=== PATIENT | male | born 1975 | race Two or more races ===

== ENCOUNTER 2023-05-23 20:53 | Outpatient (CLI) | payer MEDICAID, SELFPAY ==
--- OUTSIDE RECORDS SUMMARY | 2023-05-23 20:58 | XMS_ITS | Encounter Summary ---
Author Name Unknown Organization [facility] Address [address] [place] [address]. [place] [address] Care Team Providers Care Automatic Stacker Name Role Phone Saba Pan MD Unavailable [phone] Samuel Rahman MD Unavailable [phone] Saba Pan MD Unavailable [phone] Bolivar Tierney DPM Unavailable [phone] Jennie Coleman APRN [employer] SECRETARY Unavailable [phone] Lety Baldwin Primary Care Provider [phone] Encounter Details Date Type Department Care Team (Late st Contact Info) Description 10/13/2022 Telephone [facility] [address] [place] [address] Rojas Walker PA-C [address] [place] [address] Social History Tobacco Use Types Packs/Day Years Used Date Smoking Tobacco: Former Smokeless Tobacco: Never Comments:Smoked about 1/2 pp d for maybe 5 years quitting over 10 years ago (as of 2022) Alcohol Use Standard Drinks/Week Comments Not Currently 0 (1 standard drink = 0.6 oz pur e alcohol) PHQ-2 Answer Date Recorded PHQ-2 Score 6 06/07/2022 Sex and Gender Information Value Date Recorded Sex Assigned at Not on file Gender Identity Not on file Sexual Orientation Not on file COVID-19 Exposure Response Date Recorded In the last 10 days, have yo u been in contact with someone who was confirmed or suspected to have Coronavirus/COVID-19? No / Unsure 10/10/2022 8:59 AM CDT documented as of this encounter Miscellaneous Notes * Telephone Encounter - Flor Simpson - 10/14/2022 8:47 AM CDT Left message to call and schedule. * Telephone Encounter - David Harry, RN - 10/13/2022 3:19 PM CDT Order extended to 03/17/23 * Telephone Encounter - Oralia Paez - 10/13/2022 10:53 AM CDT Order/Referral Request Who is requesting: PT is wanting to schedule sleep study, no appts available until after 12.13.22. Sleep order expires on 11.10.22 please extend this Orders being requested: see above Reason service is needed/diagnosis: wants to schedule sleep study When are orders needed by: would like to schedule soon Has this been discussed with Provider: No Does patient have a preference on a Group/Provider/Facility? [facility] Does patient have an appointment scheduled?: No Where to send orders: Place orders within [facility] Could we send this information to you in [facility] or would you prefer to receive a phone call?: Patient would prefer a phone call Okay to leave a detailed message?: Yes at Other phone number: [phone] documented in this encounter Plan of Treatment Upcoming Encounters Date Type Department Care Team (Late st Contact Info) Description 07/27/2023 10:00 AM CDT Virtual Visit [facility] [address] [address] Nasir Cunningham MD [address] [place] [address] documented as of this encounter Visit Diagnoses Not on filedocumented in this encounter Additional Health Concerns Assessment Noted Time PHQ-9 Depression Total Score: 19 023 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 encounter Care Teams Automatic Stacker Relationship Specialty Start Date End Date Lety Baldwin [place] [address] PCP - General Family Practice 10/10/22 Saba Pan MD Physical Medicine and Rehabilitation 02/21/22 Samuel Rahman MD [address] [facility] [address] [place] [address] Assigned Heart and Vascular Provider 04/02/22 Saba Pan MD [address] [facility] [address] [place] [address] Assigned Neuroscience Provider 06/11/22 01/06/23 Bolivar Tierney DPM [address] [facility] [address] [place] [address] Assigned Surgical Provider 07/09/22 Jennie Coleman APRN [employer] SECRETARY [address] [place] [address] Assigned Pain Medication Provider 08/13/22 02/10/23 documented as of this encounter
--- OUTSIDE RECORDS SUMMARY | 2023-05-23 20:58 | XMS_ITS | Encounter Summary ---
Author Name Unknown Organization [facility] Address [address] [place] [address] Care Team Providers Care Pillow Filler Name Role Phone Saba Pan MD Unavailable [phone] Samuel Rahman MD Unavailable [phone] Bolivar Tierney DPUma Unavailable [phone] Lety Baldwin Primary Care Provider [phone] Rojas Walker PA-C Unavailable [phone] Reason for Visit * Reason Onset Date Comments Transfer Note 03/21/2023 Encounter Details Date Type Department Care Team (Late st Contact Info) Description 03/21/2023 Telephone [facility] [address] [place] [address] [place] [address] [place] [address] Transfer Note Social History Tobacco Use Types Packs/Day Years Used Date Smoking Tobacco: Former Smokeless Tobacco: Current Chew Comments:Smoked about 1/2 pp d for maybe 5 years quitting over 10 years ago (as of 2022) Alcohol Use Standard Drinks/Week Comments Not Currently 0 (1 standard drink = 0.6 oz pur e alcohol) PHQ-2 Answer Date Recorded PHQ-2 Score 6 06/07/2022 Adolescent Education Answer Date Record ed Getting School Help Needed Not on file 01/06 Sex and Gender Information Value Date Recorded Sex Assigned at Not on file Gender Identity Not on file Sexual Orientation Not on file documented as of this encounter Plan of Treatment Upcoming Encounters Date Type Department Care Team (Late st Contact Info) Description 07/27/2023 10:00 AM CDT Virtual Visit [facility] and Bariatrics Care [address] [place] [id number] Nasir Cunningham MD [address] [facility] [address] [place] [address] documented as of this encounter Visit Diagnoses Not on filedocumented in this encounter Additional Health Concerns Assessment Noted Time PHQ-9 Depression Total Score: 19 023 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 Care Teams Pillow Filler Relationship Specialty Start Date End Date Lety Baldwin PA [address] [place] [address] PCP - General Family Practice 10/10/22 Saba Pan MD Physical Medicine and Rehabilitation 02/21/22 Samuel Rahman MD [address] [place] [address] [address] [place] [address] Assigned Heart and Vascular Provider 04/02/22 Bolivar Tierney DPM [address] [place] [address] [address] [place] [address] Assigned Surgical Provider 07/09/22 Rojas Walker PA-C [address] [facility] [address] [place] [address] Assigned Neuroscience Provider 01/07/23 documented as of this encounter
--- OUTSIDE RECORDS SUMMARY | 2023-05-23 20:58 | XMS_ITS | Encounter Summary ---
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 [employer] Unavailable [phone] Lety Baldwin Primary Care Provider [phone] Reason for Visit * Reason Comments Weight Problem RWM Encounter Details Date Type Department Care Team (Late st Contact Info) Description 12/21/2022 9:30 AM CDT Virtual Visit [facility] [address] [id number] Nasir Cunningham MD [address] [place] [id number] Type 2 diabetes mellitus with diabetic neuropathy, with long-term current use of insulin (H); Type 2 diabetes mellitus with peripheral neuropathy (H) Social History Tobacco Use Types Packs/Day Years Used Date Smoking Tobacco: Former Smokeless Tobacco: Current Chew Tobacco Cessation:Ready to Q uit: Not Asked; Counseling Given: Not Answered Comments:Smoked about 1/2 ppd for maybe 5 years quitting over 10 [...] on file documented as of this encounter Last Filed Vital Signs Vital Sign Reading Time Taken Comments Blood Pressure - - Pulse - - Temperature - - Respiratory Rate - - Oxygen Saturation - - Inhaled Oxygen Concentration - - Weight 137.9 kg (304 lb) 12/21/2022 9:15 AM CDT Height 177.8 cm (5' 10) 12/21/2022 9:15 AM CDT Body Mass Index 43.62 12/21/2022 9:15 AM CDT documented in this encounter Patient Instructions * Patient Instructions* Nasir Cunningham MD - 12/21/2022 9:30 AM CDT Plan: 1. Diet: continue aiming for 2000-2150kcal/day with 100grams of lean protein daily to keep good weight reduction going as you increase your fitness tool at the [facility] this summer/Fall. 2. Exercise: recumbent elliptical and strength work 2-4 days weekly at the [facility] is great. 3. Medication: Victoza 1.8mg/day refilled with needles/swabs. You can follow up as planned with your PCP this next month for your diabetes check. Looking at your insurance coverages for diabetes medication, if you miss doses frequently (not a problem today). There is a once weekly medication calledbydureon that is also covered similarly to Victoza. Unfortunately, it looks like the newer agents like Mounjaro (tirzepatide) or Ozempic are not affordably covered and so we'll continue with using these diabetic focused drugs to tap into some of the fullness feeling they help with as well. 4. If not tracking food intake, it would be helpful to use an cary like My Net Diary or [employer] or [employer] to make sure you're on track for intake goals and then see how your appetite control/blood sugars respond to that regimen. 5. Goals: down nearly 80 lbs from highest weights in 2021. 21% body weight reduction which is fantastic. In the next 20-25 lbs of weight loss, you'll move down a risk category as it relates to your weight related health, when you BMI drops under 40. LEAN PROTEIN SOURCES Getting 20-30 grams of protein, 3 meals daily, is appropriate for most people, some need more but more than about 40 grams per meal is not useful. General rule is drinking one ounce of water per gram of protein eaten over the course of the day: 70 grams of protein each day, drink 70 oz of water. Protein Source Portion Calories Grams of Protein Nonfat, plain Rwandan yogurt (10 grams sugar or less) 3/4 cup (6 oz) 80-100 12-17 Light Yogurt (10 grams sugar or less) 3/4 cup (6 oz) 80-100 6-8 Protein Shake 1 shake 110-180 15-30 Skim/1% Milk or lactose-free milk 1 cup ( 8 oz) 90-100 8 Plain or light, flavored soymilk 1 cup 90-100 7-8 Plain or light, hemp milk 1 cup 110 6 Fat Free or 1% Cottage Cheese 1/2 cup 90 15 Part skim ricotta cheese 1/2 cup 100 14 Part skim or reduced fat cheese slices 1 ounce 65-80 8 Mozzarella String Cheese 1 80 8 Canned tuna, chicken, crab or salmon (canned in water) 1/2 cup 100 15-20 White fish (broiled, grilled, baked) 3 ounces 100 21 [place]/Tuna (broiled, grilled, baked) 3 ounces 150-180 21 Shrimp, Scallops, Lobster, Crab 3 ounces 100 21 Pork loin, Pork Tenderloin 3 ounces 150 21 Boneless, skinless chicken /turkey breast (broiled, grilled, baked) 3 ounces 120 21 [place], [place]arro, [place], and Venison 3 ounces 120 21 Lean cuts of red meat and pork (sirloin, round, tenderloin, flank, ground 93%-96%) 3 ounces 170 21 Lean or Extra Lean Ground Neffs 1/2 cup 150 20 90-95% Lean Neffs Burger 1 yanna 140-180 21 Low-fat casserole with lean meat 3/4 cup 200 17 Luncheon Meats (turkey, lean ham, roast beef, chicken) 3 ounces 100 21 Egg (boiled, poached, scrambled) 1 Egg 60 7 Egg Substitute 1/2 cup 70 10 Nuts (limit to 1 serving per day) 3 Tbsp. 150 7 Nut [place] (peanut, almond) Limit to 1 serving or less daily 1 Tbsp. 90 4 Soy Burger (varies) 1 90-130 15 Garbanzo, Black, Benjamin Beans 1/2 cup 110 7 Refried Beans 1/2 cup 100 7 Kidney and Rees beans 1/2 cup 110 7 Tempeh 3 oz 175 18 Vegan crumbles 1/2 cup 100 14 Tofu 1/2 cup 110 14 Lamoni (beans and extra lean beef or turkey) 1 cup 200 23 Lentil Stew/Soup 1 cup 150 12 Black Beth Soup 1 cup 175 12 On-the-Go Breakfast Ideas As of 2015, the latest research shows what a huge impact eating breakfast has on losing weight and feeling your best. People lose more weight when they make breakfast their biggest meal of the day compared to Dinner, but even if you cannot go to that degree, getting a breakfast that has at least 20grams of protein and even a moderate amount of fat is ideal for maintaining good energy through theday and limits overeating in the evening hours. The following are some quick and easy suggestions for at least getting something of substance into your body in the morning. Enjoy! Eating breakfast within 90 minutes of waking up is an important part of taking care of your body melina restricted calorie diet plan. After sleeping for hours, your body is in need of fuel. An ideal breakfast is a combination of protein, whole-grain carbohydrates, or fruit. Here???s why: -Protein digests very slowly in the body, helping you feel more satisfied. -Whole grains provide dietary fiber, which also digests slowly and helps keep your gut clean. -Fruit is a great source of vitamins, minerals, and fiber. Each one of these breakfast combinations has between 200-300 calories and 15-20 grams of protein. Feel free to mix and match! Bone Broth (chicken bone broth or beef bone broth) is a great way to boost protein content. 8oz of bone broth will typically have 9-12grams of protein for 40kcal of energy. Protein: Choose -1/2 cup low-fat cottage cheese -2 hard boiled eggs , or one cooked in olive oil (low/slow heat). -1 low fat string cheese stick -1 Tablespoon natural peanut butter -Todaytickets vegetarian sausage yanna (found in freezer section) -1 slice lowfat cheese -6 oz 2% or lowfat Rwandan yogurt, such as Fage or Oikos. PLUS Whole Grains: Choose??? -1 whole wheat Vietnamese muffin -1 whole wheat lópez, half -1/2 Fiber One frozen muffin, thawed -1/2 Fiber One toaster pastry -1 whole wheat bagel thin -1/2 cup Kashi cereal -1 Kashi waffle (or other whole grain high-fiber waffle) Aim for whole grain/sprouted breads with at least 3g of fiber/slice if having bread. Mingleplay is one such brand. OR Fruit: Choose -1/3 cup blueberries -1/2 banana (or a plantain- similar to a banana, yet smaller) -1/2 cup cantaloupe cubes -1 small apple -1 small orange -1/2 cup strawberries -handful raspberries/blackberries (each phillips is about 1 calorie). *Adapted from Diabetes Living, fall Ten Breakfasts Under 250 calories Ideally, getting between 350-600 calories (depending on starting height and weight)for breakfast isideal for avoiding hunger later in the day, adjust/add to the following accordingly: One- 250 calories, 8.5 g protein 1 slice whole-grain toast 1 Tbsp peanut butter ?? banana Two- 250 calories, 8 g protein ?? cup nonfat/lowfat yogurt 1/3rd cup diced no-sugar peaches 1/3rd cup cereal (like Special K, Cheerios, or bran flakes) Three- 250 calories, 25 g protein 1 egg scrambled with 1 oz skim milk ?? cup shredded cheddar ?? whole grain Vietnamese muffin 1 oz [place] hendrickson 1 tsp margarine spread Four- 225 calories, 25 g protein 1/2 cup Kashi Go-Lean cereal ?? cup skim milk mixed with 1 scoop Bariatric Advantage protein powder ?? cup no-sugar diced pears Five- 250 calories, 20 g protein ?? cup oatmeal prepared with skim milk, 1 scoop protein powder, and sugar-free maple syrup Six- 200 calories, 5 g protein 1 whole grain waffle, toasted 1 tablespoon creamy peanut or almond butter Seven- 250 calories, 19 g protein Breakfast sandwich: 1 slice whole grain toast, cut in half. Add 1 scrambled egg and one slice cheddar cheese. Eight- 250 calories, 15 g protein 2 eggs scrambled with 1/3 cup frozen spinach (heat before adding to eggs) and 2 tablespoons low fatcream cheese. Nine- 150 calories, 15 g protein 2/3rd cup cottage cheese ?? cup cantaloupe Ten- 200 calories, 20 g protein Fruit smoothie made with 4 oz. nonfat Rwandan yogurt, ?? cup berries, 1 scoop protein powder, and 4 oz skim milk. Ten Lunches Under 250 Calories Aim for lunch to be around 300-400 calories a day when trying to lose weight and get that protein in! One- 200 calories, 11 g protein 1/3 cup tuna salad made with light espinosa on 1 slice whole grain bread 1 small peeled apple Two- 250 calories, 16 g protein 1/3 cup lowfat cottage cheese ?? cup cooked green beans ?? small fruit cocktail (in natural juice) Three- 200 calories, 11 g protein ?? grilled cheese sandwich on whole grain bread with lowfat cheese 2/3rd cup of tomato soup Four- 250 calories, 22 g protein Deli wrap: 1 oz sliced turkey, 1 oz sliced ham, 1 oz sliced chicken rolled up with 1 slice low-fat cheese 1 small orange Five- 250 calories, 28 g protein 2/3rd cup chili with 1 oz shredded cheese 4 saltine crackers Six- 250 calories, 22 g protein 1 cup fresh spinach with 2 oz chicken, 1/3rd cup mandarin oranges, and 2 tablespoons sliced almondswith 1 tablespoon vinaigrette dressing Seven- 200 calories, 11 g protein 1 Tbsp sugar-free preserves and 1 Tbsp peanut butter on 1 slice whole grain toast ?? cup nonfat/lowfat Rwandan yogurt Eight- 250 calories, 18 g protein 1 small soft-shell chicken taco with 1 oz shredded cheese, lettuce, tomato, salsa, and 1 Tbsp lightsour cream ?? cup black beans Nine- 225 calories, 13 g protein 2 ounces baked chicken 1/4 cup mashed potatoes ?? cup green beans Ten- 200 calories, 21 g protein Deli lópez: 2 oz roast beef or other deli meat with 1 tsp Duane mayonnaise and sliced tomato, onion,and lettuce 1/3rd cup cottage cheese Ten Dinners Under 300 calories If you're eating a large breakfast and medium lunch, keep dinner small. 300-400 calories is ideal for most people depending on their caloric needs. One- 300 calories, 12 g protein 1-inch thick slice of turkey meatloaf ?? cup baked butternut squash Two- 200 calories, 9 g protein Bread-less BLT: 3 slices turkey hendrickson, sliced tomato, wrapped in a large lettuce leaf ?? cup peeled fruit Three- 275 calories, 36 g protein 3 oz roasted chicken ?? cup cooked broccoli ?? cup shredded cheddar cheese ?? cup unsweetened applesauce Four- 200 calories, 25 g protein 3 oz baked tilapia 1/3rd cup cooked carrots ?? cup yogurt Five- 250 calories, 20 g protein Grilled ham ???n??? Syrian: spread 2 tsp ghee or butter on 1 slice of whole grain bread. Cut bread in half, layer 2 oz deli ham with 1 piece of Syrian cheese and grill until cheese is melted. ?? cup cooked vegetables Six- 250 calories, 18 g protein Vegetarian cheeseburger: 1 [place] cheeseburger topped with lettuce, onion, tomato, and ketchup/mustard ?? cup sweet potato fries Seven- 250 calories, 18 g protein Pork pot roast: 2 oz roasted pork loin, 1/3rd cup roasted carrots, ?? medium potato, cooked with ??cup gravy Eight- 330 calories, 25 g protein 2 oz meatballs (about 2 small meatballs) ?? cup spaghetti sauce 1/2 piece toast topped with 1 tsp ghee or butterand topped with garlic powder, toasted in oven Nine- 250 calories, 16 g protein Zambian pizza: one 8?? corn tortilla topped with 2 oz chicken, ?? cup salsa, 2 tablespoons black beans, 2 tablespoons shredded cheese. Bake until cheese is melted. Ten- 250 calories, 22 g protein Shrimp stir-weiner: 3 oz cooked shrimp, 1/6th onion, ?? pepper, ?? cup chopped carrots saut??ed in 1 tablespoon olive oil, topped with 2 tablespoons stir weiner sauce and a pinch of sesame seeds 150 Calories or Less Snack Ideas 1 hardboiled egg with ?? cup berries 1 small apple with 1 hardboiled egg 10 almonds with ?? cup berries 2 clementines with 1 light string cheese 1 light string cheese with ?? sliced apple 1 light string cheese wrapped in 2 slices of turkey 4 100% whole wheat crackers (e.g. Triscuit) with 1 light string cheese ?? c. cottage cheese with ?? cup fruit and 1 Tbsp sunflower seeds ?? cup cottage cheese with ?? of an avocado ?? can tuna fish with 1 cup sliced cucumbers ?? cup roasted garbanzo beans with paprika and cayenne pepper ?? baked sweet potato with ?? cup chili beans or ?? cup cottage cheese 2 oz. nitrate free turkey slices with 1 cup carrots 1 container (6 oz) of low sugar (less than 10 grams of sugar) congolese yogurt 3 Tablespoons of hummus with 1 cup sliced santos peppers 2 Tablespoons of hummus with 15 baby carrots 4 Tablespoons ranch dip made with plain Rwandan Yogurt and 3 mini cucumbers 1/4 cup nuts (any kind) 1 Tablespoon peanut butter with 1 stalk celery 1 dill pickle wrapped in 1-2 slices of deli ham with 1 tsp of mayonnaise/mustard. documented in this encounter Progress Notes * Nasir Cunningham MD - 12/21/2022 9:30 AM CDT Images from the original note were not included. The patient has been notified of following: This telephone visit will be conducted via a call between you and your physician/provider. We havefound that certain health care needs can be provided without the need for a physical exam. This service lets us provide the care you need with a short phone conversation. If a prescription is necessary we can send it directly to your pharmacy. If lab work is needed we can place an order for that and you can then stop by our lab to have the test done at a later time. Telephone visits are billed at different rates depending on your insurance coverage. During this emergency period, for some insurers they may be billed the same as an in-person visit. Please reach out to your insurance provider with any questions. If during the course of the call the physician/provider feels a telephone visit is not appropriate,you will not be charged for this service. Patient has given verbal consent to a Telephone visit? Yes What phone number would you like to be contacted at? [phone] Patient would like to receive their AVS by [employer] Are there any specific questions or needs that you would like addressed at your visit today? No Telephone Start Time: 9:28 AM Telephone End Time (time telephone stopped): 9:46 AM Originating Patient Location (pt. Location): Home Distant Location (provider location): On-site Distant Location (provider location): [facility] [place] [facility] Follow-Up Visit: Gale Munson is a 47 year old male with Body mass index is 43.62 kg/m??. presenting here today for follow-up on non-surgical efforts for weight loss. Original Intake visit occurred on 06/17/20 witha weight of 331 lbs and BMI of 46.2. Along with diet and behavior changes, he has been using Victoza (Liraglutide) to assist his weight loss goals while helping with his diabetes. See his intake visit notes for details on identified contributors to weight gain in the past. Chart review shows Box Cutter calculated RMR of 2425kcal/day and protein intake goal of 80-100g/day. Weight: Wt Readings from Last 5 Encounters: 12/21/22 137.9 kg (304 lb) 10/10/22 135.8 kg (299 lb 4.8 oz) 08/08/22 145.6 kg (321 lb) 08/05/22 144.7 kg (319 lb) 07/04/22 148.3 kg (327 lb) pounds Lab Results Component Value Date A1C 7.3 06/17/2022 A1C 7.8 12/21/2021 A1C 6.9 11/18/2008 A1C 9.0 10/21/2008 A1c was 5.7% on 09/16/22 labs in Care Everywhere. 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) Diabetic foot infection (H) Diabetic neuropathy (H) Erectile dysfunction of organic origin Generalized anxiety disorder Renal cyst Hypertensive renal disease Major depressive disorder, recurrent episode, moderate (H) Osteomyelitis of right foot (H) Pain disorder associated with psychological factors and medical condition Penicillin allergy Type II or unspecified type diabetes mellitus without mention of complication, not stated as uncontrolled Type II or unspecified type diabetes mellitus without mention of complication, uncontrolled Weakness of both legs Morbid obesity (H) Current Outpatient Medications: acetaminophen (TYLENOL) 325 MG tablet, Take 650 mg by mouth 3 times daily as needed for mild pain, Disp: , Rfl: alcohol swab prep pads, Use to swab area of injection/pavan as directed., Disp: 100 each, Rfl: 2 amLODIPine (NORVASC) 10 MG tablet, , Disp: , Rfl: aspirin (ASA) 81 MG chewable tablet, Take 81 mg by mouth daily, Disp: , Rfl: blood glucose (NO BRAND SPECIFIED) test strip, Use to test blood sugar 4 times daily or as directed. To accompany: Blood Glucose Monitor Brands: per insurance., Disp: 100 strip, Rfl: 6 blood glucose calibration (NO BRAND SPECIFIED) solution, To accompany: Blood Glucose Monitor Brands: per insurance., Disp: 2 each, Rfl: 0 blood glucose monitoring (NO BRAND SPECIFIED) meter device kit, Use to test blood sugar 4 times daily or as directed. Preferred blood glucose meter OR supplies to accompany: Blood Glucose Monitor Brands: per insurance., Disp: 1 kit, Rfl: 0 chlorthalidone (HYGROTON) 25 MG tablet, Take 1 tablet (25 mg) by mouth daily, Disp: , Rfl: cyanocobalamin (VITAMIN B-12) 1000 MCG tablet, Take 1,000 mcg by mouth twice a week, Disp: , Rfl: diclofenac (VOLTAREN) 1 % topical gel, Apply 4 g topically 4 times daily as needed for moderate pain, Disp: , Rfl: doxazosin (CARDURA) 1 MG tablet, Take 1 mg by mouth At Bedtime Hold for blood pressure less than 100, Disp: , Rfl: hydrALAZINE (APRESOLINE) 100 MG tablet, Take 1 tablet (100 mg) by mouth 3 times daily, Disp: , Rfl: HYDROcodone-acetaminophen (NORCO) 5-325 MG tablet, TAKE 1 TABLET BY MOUTH THREE TIMES DAILY CONTROLLED SUBSTANCE-DOUBLE LOCK STORAGE, Disp: 30 tablet, Rfl: 0 insulin glargine (LANTUS PEN) 100 UNIT/ML pen, Inject 15 Units Subcutaneous At Bedtime Hold for blood glucose less than 120, Disp: , Rfl: insulin pen needle (31G X 5 MM) 31G X 5 MM miscellaneous, Use 4 pen needles daily or as directed., Disp: 100 each, Rfl: 0 insulin pen needle (BD ANNIKA U/F) 32G X 4 MM miscellaneous, Use new pen needle for each autoinjection., Disp: 100 each, Rfl: 4 liraglutide (VICTOZA) 18 MG/3ML solution, Inject 1.8 mg Subcutaneous daily, Disp: 27 mL, Rfl: 3 metFORMIN (GLUCOPHAGE) 500 MG tablet, Take 1 tablet (500 mg) by mouth 2 times daily (with meals), Disp: , Rfl: nicotine (NICORETTE) 2 [address] gum, Place 2 mg inside cheek every hour as needed for smoking cessation, Disp: , Rfl: polyethylene glycol (MIRALAX) 17 GM/Dose powder, Take 17 g by mouth daily (Patient taking differently: Take 17 g by mouth 2 times daily), Disp: 510 g, Rfl: rosuvastatin (CRESTOR) 10 MG tablet, Take 1 tablet (10 mg) by mouth daily, Disp: , Rfl: SENNA-docusate sodium (SENNA S) 8.6-50 MG tablet, Take 1 tablet by mouth At Bedtime And 1 tab BID PRN (Patient taking differently: Take 2 tablets by mouth 2 times daily), Disp: , Rfl: thin (NO BRAND SPECIFIED) lancets, Use with lanceting device. To accompany: Blood Glucose Monitor Brands: per insurance., Disp: 100 each, Rfl: 0 torsemide (DEMADEX) 20 MG tablet, Take 30 mg by mouth daily, Disp: , Rfl: Vitamin D3 (CHOLECALCIFEROL) 25 mcg (1000 units) tablet, Take 25 mcg by mouth daily, Disp: , Rfl: Interim: Since our last visit, he has had some modest weight regain but maintaining close to 75-80lb reduction from heaviest weight at the end of 2021. Victoza has been tolerated well at the 1.8mg/day dose. Working at [facility] regularly now. Weighed himself at 304 lbs. Has been more mindful about simple starches and reminded that all food Blood sugar 120mg/dL today. Planning blood work w/ PCP in the next few weeks. No lows below 88mg/dL. Getting complements on his fitness. Plan: 1. Diet: continue aiming for 2000-2150kcal/day with 100grams of lean protein daily to keep good weight reduction going as you increase your fitness tool at the [facility] this summer/Fall. 2. Exercise: recumbent elliptical and strength work 2-4 days weekly at the [facility] is great. 3. Medication: Victoza 1.8mg/day refilled with needles/swabs. You can follow up as planned with your PCP this next month for your diabetes check. Looking at your insurance coverages for diabetes medication, if you miss doses frequently (not a problem today). There is a once weekly medication calledbydureon that is also covered similarly to Victoza. Unfortunately, it looks like the newer agents like Mounjaro (tirzepatide) or Ozempic are not affordably covered and so we'll continue with using these diabetic focused drugs to tap into some of the fullness feeling they help with as well. 4. If not tracking food intake, it would be helpful to use an cary like My Net Diary or [employer] or [employer]ness[employer] to make sure you're on track for intake goals and then see how your appetite control/blood sugars respond to that regimen. 5. Goals: down nearly 80 lbs from highest weights in 2021. 21% body weight reduction which is fantastic. In the next 20-25 lbs of weight loss, you'll move down a risk category as it relates to your weight related health, when you BMI drops under 40. We discussed [facility] including: -eating 3 meals daily -reviewed metabolic needs for weight loss based on Resting Metabolic Rate -protein goals supportive of healthy weight loss -avoiding/limiting calorie containing beverages -We discussed the importance of restorative sleep and stress management in maintaining a healthy weight. -We discussed the National Weight Control Registry healthy weight maintenance strategies and ways to optimize metabolism. -We discussed the importance of physical activity including cardiovascular and strength training inmaintaining a healthier weight and explored viable options. Most recent labs: Lab Results Component Value Date WBC 13.1 (H) 06/17/2022 HGB 13.6 06/17/2022 HCT 40.4 06/17/2022 MCV 86 06/17/2022 PLT 269 06/17/2022 Lab Results Component Value Date CHOL 145 01/04/2022 Lab Results Component Value Date HDL 33 (L) 01/04/2022 No components found for: LDLCALC Lab Results Component Value Date TRIG 114 01/04/2022 No results found for: CHOLHDL Lab Results Component Value Date ALT 28 06/17/2022 AST 33 06/17/2022 ALKPHOS 115 06/17/2022 No results found for: HGBA1C Lab Results Component Value Date B12 1,601 (H) 06/17/2022 No components found for: VITDT1 No results found for: NOLVIA No results found for: PTHI Lab Results Component Value Date ZN 76.6 06/17/2022 Lab Results Component Value Date VIB1WB 149 06/17/2022 Lab Results Component Value Date TSH 0.63 06/17/2022 No results found for: TEST DIETARY HISTORY Tracking technique: limited Positive Changes Since Last Visit: going to the [facility] regularly the past couple of weeks. Struggling With: protein from whole foods can be financially hard at times. Getting Adequate Protein: had been supplementing w/ some Ensure Max protein Sleep schedule: n/a. PHYSICAL ACTIVITY PATTERNS: Cardiovascular: recumbent elliptical at the [facility] Strength Training: machines/elliptical REVIEW OF SYSTEMS Feels well. No upset stomach. Happy with progress and enjoying complements at the gym. . PHYSICAL EXAM: Vitals: Ht 1.778 m (5' 10) Wt 137.9 kg (304 lb) BMI 43.62 kg/m?? Weight: Wt Readings from Last 3 Encounters: 12/21/22 137.9 kg (304 lb) 10/10/22 135.8 kg (299 lb 4.8 oz) 08/08/22 145.6 kg (321 lb) GEN: Pleasant on phone call today, normal affect/speech. No cough. Interim study results: none.. 25 minutes spent by me on the date of the encounter doing chart review, history and exam, documentation and further activities per the note Nasir Cunningham MD [facility] 7:53 AM 12/21/2022 documented in this encounter Plan of Treatment Upcoming Encounters Date Type Department Care Team (Late st Contact Info) Description 07/27/2023 10:00 AM CDT Virtual Visit [facility] [place] [address] [facility] [address] [place] [address] Nasir Cunningham MD [address] [facility] [address] [place] [address] documented as of this encounter Visit Diagnoses Diagnosis Type 2 diabetes mellitus with diabetic neuropathy, with long-term current use of insulin (H) Type 2 diabetes mellitus with peripheral neuropathy (H) documented in this encounter Additional Health Concerns Assessment Noted Time PHQ-9 Depression Total Score: 19 023 2:47 PM C [employer] WORK[employer] documented as of this encounter Care Teams Mail Clerk Relationship Specialty Start Date End Date Lety Baldwin PA [address] [place] [id number] PCP - General Family Practice 10/10/22 Saba Pan MD Physical Medicine and Rehabilitation 02/21/22 Samuel Rahman MD [address] [facility] [address] [place] [address] Assigned Heart and Vascular Provider 04/02/22 Saba Pan MD [address] [facility] [address] [place] [address] Assigned Neuroscience Provider 06/11/22 01/06/23 Bolivar Tierney DPM [address] [facility] [address] [place] [address] Assigned Surgical Provider 07/09/22 Jennie Coleman APRN CNP [address] [place] [address] Assigned Pain Medication Provider 08/13/22 02/10/23 documented as of this encounter
--- OUTSIDE RECORDS SUMMARY | 2023-05-23 20:58 | XMS_ITS | Encounter Summary ---
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 Name Role Phone Saba Pan MD Unavailable [phone] Samuel Rahman MD Unavailable [phone] Bolivar Tierney DPUma Unavailable [phone] Lety Baldwin Primary Care Provider [phone] Rojas Walker PA-C Unavailable [phone] Reason for Visit * Reason Comments RECHECK Encounter Details Date Type Department Care Team (Late st Contact Info) Description 03/23/2023 10:30 AM ELECTRIC SIGN WIRER Virtual Visit [facility] [address] [place] [phone] Nasir Cunningham MD [address] [place] [id number] Type 2 diabetes mellitus with diabetic [...] alcohol) PHQ-2 Answer Date Recorded PHQ-2 Score 2 03/23/2023 Adolescent Education Answer Date Record ed Getting [...] - - Weight 137.9 kg (304 lb) 03/23/2023 10:19 AM ELECTRIC SIGN WIRER Height - - Body Mass Index 43.62 12/21/2022 9:15 AM CDT documented in this encounter Patient Instructions * Patient Instructions* Nasir Cunningham MD - 03/23/2023 10:30 AM ELECTRIC SIGN WIRER Plan: 1. Diet: aiming for 1900-2050kcal/day with 70-85 grams of lean protein daily to continue good weight reductions going forward. With the costs of proteins, finding affordable/satiating option can be difficult sometimes but touch base with fusing machine tender if struggling. 2. Exercise: continue pool therapy and workouts at [facility] to keep that health benefit on overall fitness/health. With 3 days weekly the above intake goal should continue to produce good weight reductions. If you stop exercising, aiming for 1750-1950kcal/day would be your intake goal. 3. Medication: Victoza helpful for A1c control we'll continue at 1.8mg/day dose. 4. 5. Goals: would like to lose 50 lbs in 2023 with continued healthy kidneys and diabetes control. LEAN PROTEIN SOURCES Getting 20-30 grams of [...] Portion Calories Grams of Protein Nonfat, plain Lao yogurt (10 grams sugar or less) 3/4 [...] (broiled, grilled, baked) 3 ounces 100 21 [place]/Tuna (broiled, grilled, baked) 3 ounces 150-180 21 Shrimp, Scallops, Lobster, Crab 3 ounces 100 21 Pork loin, Pork Tenderloin 3 ounces 150 21 Boneless, skinless chicken /turkey breast (broiled, grilled, baked) 3 ounces 120 21 [place], [place], [place], and Venison 3 ounces 120 21 Lean cuts of red meat and pork (sirloin, round, tenderloin, flank, ground 93%-96%) 3 ounces 170 21 Lean or Extra Lean Ground Apollo 1/2 cup 150 20 90-95% Lean Apollo Burger 1 yanna 140-180 21 Low-fat casserole with lean meat 3/4 cup 200 17 Luncheon Meats (turkey, lean ham, roast beef, chicken) 3 ounces 100 21 Egg (boiled, poached, scrambled) 1 Egg 60 7 Egg Substitute 1/2 cup 70 10 Nuts (limit to 1 serving per day) 3 Tbsp. 150 7 Nut [place] (peanut, almond) Limit to 1 serving or less daily 1 Tbsp. 90 4 Soy Burger (varies) 1 90-130 15 Garbanzo, Black, Benjamin Beans 1/2 cup 110 7 Refried Beans 1/2 cup 100 7 Kidney and Rees beans 1/2 cup 110 7 Tempeh 3 oz 175 18 Vegan crumbles 1/2 cup 100 14 Tofu 1/2 cup 110 14 Alliance (beans and extra lean beef or turkey) 1 cup 200 23 Lentil Stew/Soup 1 cup 150 12 Black Beth Soup 1 cup 175 12 Example Meal Plan for a 7341-0566 Calorie Diet: In order to fuel your weight loss properly and avoid hunger-induced overeating later in the day, for your height and weight, you will enjoy the most success by following the diet below or similar with adjustments based on your particular tastes and preferences. Exercise may influence speed, amount of weight loss further. I recommend getting into a meal routine and keeping it similar day to day in the beginning so you don???t have to think too hard about what you???re going to make/eat. Keep snacks healthy, ideally containing protein and some vegetables. Non-processed food is preferable to packaged items. Eat at least a few crunchy green vegetables if having a snack, which should be 2-3 hours after your mealtimes(prepare these ahead of time for ease of use). Drink 64 oz -80 oz of water daily for most, some of you will need more and we'll discuss it at your visit if that is the case. When changing our diet, we can often mistake thirst for hunger or just have some distracted eating habits that we need to break free from ('bored/mindless eating', screen time,work, driving,etc). A glass of water and reconsideration of our hunger is often all that is needed. Having the urge is not the problem, but watching it pass by without acting on it is the goal. If you???re having hunger problems, add a protein drink/snack to your morning hours or afternoon snack with at least 20grams of protein and not too much sugar (under 10g). A carton of higher protein/low sugar yogurt can work as well. If the urge to snack is overwhelming and not satiated, try going for a 10 minute walk/exercise, come home and drink a glass of water and if still hungry, have a 90-150 calorie snack (handful of raw/sprouted nuts, veggies and string cheese, protein bar, etc). Savor it. It is better to have a large breakfast, a moderate lunch and a smaller dinner to fuel your day. People lose 10-15% more weight during their weight loss season with this strategy. Optimizing your protein intake at each meal will further keep you more satisfied while eating less food overall. Gettingexercise in early has also been shown to offer the best results (before breakfast ideally but anytime is the right time to exercise if that is not an option for you). To make sure you???re getting adequate vitamins and minerals during weight loss, I recommend one complete multivitamin a day of your choice. Consider a probiotic and taking some vitamin D 2000 IU daily. Let supper be your last meal of the day and ideally try to have at least 12 hours between supper and breakfast the next day to tap into some beneficial overnight fasting dynamics. Midnight snacks need to go away. Water in the evening is fine, unsweetened, non caffeinated herbal tea is helpful as well. Consolidating your meals within a 8-12 hour period of your day will help tap into these additional metabolic benefits and tends to keep your appetite up for breakfast, further helping to stay on track. For most of my patients, I don't recommend an intermittent fasting style diet (many find it hard to fit in their lifestyle) but an overnight fast is very doable for most patients and helps regulate our hunger drives a little better. This makes it very important to nail good intake at all threemeals to feel satisfied/energized and still lose weight. If evening snacking desires are high, consider a glass of fiber supplement for some additional fullness (metamucil or similar). Most of us don't get the 25-30 grams per day of fiber that promotes good gut health/satiety. Benefiber, metamucil, citrucel are reasonable/affordable options for most people. Inulin, chicory, psyllium husk are reasonable options but start slow and low in the dose to avoid gas/bloating until your gut gets acclimated (ramping up to 5-10 grams per day of supplemental fiber after 3-4 weeks if needed). Example Meal Plan: Breakfast: 450-475 Calories 1 egg cooked on low in olive oil: 90-100 calories. 5oz Lao Yogurt (Fage plain classic: ~150 emilee) Handful of Berries of your choice (about a calorie per phillips or 20-40cal per handful) ?? cup(cooked) of old fashioned oatmeal or 1/2 cup(cooked) steel cut oats. (150 emilee) Sprinkle amount of brown sugar and a pat of butter. (40 emilee) Glass of Water Black coffee or unsweetened Tea (0calories). 2-3 hours Later Snack: (195 calories). Glass of water One string Cheese (80 calories) or 4 oz creamed cottage cheese (115 calories) with Crunchy Celery sticks (less than 10 calories per large stalk) 2 stalks. (20 calories) ?? of a Large Banana or ?? of a Large Apple (60 calories): eat second half at lunch or afternoon snack. Lunch:300 -350 calories Chicken Breast (baked/broiled/roasted/grilled) 4-6 oz. (125-180 emilee), BBQ sauce/hot sauce/mustard/seasoning is free. Just use a reasonable amount. Or a can of tuna with 1 tablespoon mayonnaise. Salad: lettuce, any other veggies (cucumbers, green peppers/celery you like and a small drizzle of dressing to just flavor. Go as big on the veggies as you like, as they are practically calorie free.A whole, 8 inch cucumber is 45 calories, a whole green pepper is 23 calories, a stalk of celery is 9 calories. [place] Dressing is 60 calories per tablespoon..so moderate your desired dressing or do a drizzle of olive oil and splash of balsamic vinegar on top, Total calories unlikely to be over 150 even with dressing. Glass of Water. Option for lunch is meal replacement protein drink/smoothie. Need at least 20 grams of protein and eat the rest of your apple/banana from the morning snack. Afternoon Snack: 150-200 calories Cheese Stick or cottage cheese again and a fresh fruit OR Granola Bar (protein Bar acceptable if under 200 calories OR Homemade smoothies: 8oz skim milk, a handful of berries (fresh or frozen and a serving of protein powder such as BiPro or Renetta???sWhey for example. If you don't like dairy, make with 8oz water, one small banana, handful of berries and the protein powder, add any veggies you want as well: roughly 200 calories. Glass of Water Dinner: 325 calories 4oz of fresh, [place] salmon. Broiled (salt/pepper/dill) for about 8-8.5 minutes (200calories) or 4oz filet mignon steak or sirloin steak Salad or vegetable saut??ed lightly in olive oil or Broccoli 1.5 cups chopped and steamed or micro-waved in a little water (75 calories) Glass of Water, Cup of herbal tea (unsweetened, caffeine free) Herbs and seasonings are encouraged to flavor your foods/vegetables. Make your food delicious. Tips for Success: 1. Prepare proteins ahead of time (broil chicken breasts in bulk so you can grab and go), steel cutoats/lentils can be stored in casserole dish/bowl in the fridge for quick scoop in the morning and rewarm in microwave, make use of crock pot recipes (watch salt content). Making meals that cover 3-4future meals is an easy way to stay on track. 2. Drink a 8-12 oz glass of water every 2-3 hours when awake. We often mistake hunger for thirst, especially when losing weight. 3. Remember your Reward and Motivation when things get hard. 4. Weigh yourself every morning and record, you'll stay on track better and learn how our biorhythms, diet and elimination patterns show up on the scale. Don't worry about 1 or 2 day patterns, but when on track you'll notice good trend downward of weight over 3-4 day segments. Plateaus tend to resolve after 4-8 days in most cases if you stay consistent with your plan. These are natural and part of weight loss, even if you're perfect with your plan execution. 5. Call if problems/concerns. [employer] is a great tool to stay in touch and provide weekly outside accountability. Check in with questions or if you want to brag. 6. Find a handful of meals/foods that keep you on track and feeling good and get into a routine that is sustainable for you. It's OK to have a routine that works for you. 7. Consider taking a complete multivitamin just to make sure all micronutrients are adequate duringweight loss. 8. If losing hair/brittle nails it usually means you are not taking enough protein. Minimum goal is60 grams daily of protein for smaller women, 80 grams a day for men. Consider taking Biotin as supplement or a Hair and Nail multivitamin. On-the-Go Breakfast Ideas As of 2015, the [...] cheese stick -1 Tablespoon natural peanut butter -DataRank vegetarian sausage yanna (found in freezer section) -1 slice lowfat cheese -6 oz 2% or lowfat Lao yogurt, such as Fage or Oikos. PLUS Whole Grains: Choose??? -1 whole wheat Mauritian muffin -1 whole wheat lópez, half -1/2 Fiber One frozen muffin, thawed -1/2 Fiber One toaster pastry -1 whole wheat bagel thin -1/2 cup Kashi cereal -1 Kashi waffle (or other whole grain high-fiber waffle) Aim for whole grain/sprouted breads with at least 3g of fiber/slice if having bread. L2 is one such brand. OR Fruit: Choose -1/3 cup blueberries -1/2 banana (or a plantain- similar to a banana, yet smaller) -1/2 cup cantaloupe cubes -1 small apple -1 small orange -1/2 cup strawberries -handful raspberries/blackberries (each phillips is about 1 calorie). *Adapted from Diabetes , fall Ten Breakfasts Under 250 calories Ideally, [...] ?? cup shredded cheddar ?? whole grain Mauritian muffin 1 oz Starke hendrickson 1 tsp margarine spread Four- 225 [...] Fruit smoothie made with 4 oz. nonfat Lao yogurt, ?? cup berries, 1 scoop protein [...] slice whole grain toast ?? cup nonfat/lowfat Lao yogurt Eight- 250 calories, 18 g protein [...] calories, 20 g protein Grilled ham ???n??? Faroese: spread 2 tsp ghee or butter on 1 slice of whole grain bread. Cut bread in half, layer 2 oz deli ham with 1 piece of Faroese cheese and grill until cheese is melted. [...] oven Nine- 250 calories, 16 g protein Singaporean pizza: one 8?? corn tortilla topped with [...] sugar (less than 10 grams of sugar) guinean yogurt 3 Tablespoons of hummus with 1 cup sliced santos peppers 2 Tablespoons of hummus with 15 baby carrots 4 Tablespoons ranch dip made with plain Lao Yogurt and 3 mini cucumbers 1/4 cup nuts (any kind) 1 Tablespoon peanut butter with 1 stalk celery 1 dill pickle wrapped in 1-2 slices of deli ham with 1 tsp of mayonnaise/mustard. MEDICATIONS FOR WEIGHT LOSS There are several medications available to assist us in weight loss. By themselves, without a mindful change in diet and increase in movement/activity these medications are disappointing in their results. However, combined with a closely monitored program of diet change and exercise they can be very effective in controlling appetite and boosting initial weight loss. All weight loss medications need continual re-evaluation for efficacy as their side effects and health benefits fail to be worthwhile if a person is not continuing to lose weight or in maintaining their healthy weight. Some weightloss medications are scheduled drugs, meaning there is at least a theoretical possibility for develo ping addiction to them, but in practice this is rare. We do anticipate coming off meds in the future- after stabilization of weight loss is assurred. Finally, a tolerance can develop and people???s perceived efficacy of medication can diminish. In communication with your physician, it may be appropriate to intermittently take a break from these medications and then restart again (few weeks off then restart again) if a plateau is reached that cannot be broken through. Each person can respond to a medication differently and to be a good option for you, it will need to be affordable, effective and well tolerated with minimal side effects. In most cases, weight loss progress after one month and three months will be obtained and if a patient is not reaching the satisfactory progress towards weight loss, the medications may be discontinued. The thought is that if a person is taking a weight loss medication and not receiving the potential health benefit of that drug, the side effects are not worthwhile and use should be discontinued. On the flip side, there are many people on some weight loss medications for years because it continues to be an effective tool in their weight management and they are tolerating the medication withoutany long-term side effects. Each person's response and purpose will be evaluated. PHENTERMINE (Adipex): approved in 1958 for appetite suppression. It has stimulant effects and cannot be used with Ritalin, Concerta, or other stimulants. Although it is not highly addictive, it's chemically related to amphetamines which are addictive and is classified as a Controlled Substance by the [place]. Occasional dependence can develop, but rarely. The most common side effects are dry mouth, increased energy and concentration, increased pulse, and constipation. You should not take phentermine if you have glaucoma, hyperthyroidism, or uncontrolled/untreated hypertension or overly anxious. You should stop if dramatic mood swings, severe insomnia, palpations, chest pains, visual changes or if your Blood Pressure is consistently elevated or any time it's over 160/90. It's ok to go off the med for a few weeks and restart if efficacy is wearing off. $24-$30 for 90 tablets at [facility]. Females are required to have reliable control to reduce the risk defects/miscarriage. TOPIRAMATE (Topamax): Anti-seizure medication, also used to prevent migraines and sometimes for mood stabilization. Side effects include paresthesia, glaucoma, altered concentration, attention difficulties, memory and speech problems, metabolic acidosis, depression, increase in body temperature and decrease sweating, risk of kidney stones. Do not take Topamax while taking Depakote as this can cause high ammonia levels. You must have reliable control as Topamax can cause defects. If prolonged use has occurred it should be tapered off slowly to avoid withdrawal issues. Insurance usually covers Topiramate. At higher doses, there may be some confusion/forgetfulness associated with this so we try to limit dose to under 75mg twice daily to reduce this risk. Often covered by insurance as it's used for many reasons. Topamax will cause carbonated beverages to taste bad. A recheck of your kidney/electrolytes may occur within a few months of starting. QSYMIA (Phentermine + Topamax): See above information about phentermine and Topamax. Most common side effects are paresthesia, dizziness, distortion of taste, insomnia, constipation, and dry mouth. See above descriptions for the two individual agents.Females are required to have reliable control to reduce the risk defects/miscarriage. $150-$220 per month GLP1 Agonists: Liraglutide (Victoza/Saxenda), Semaglutide (Ozempic/Wegovy): Part of the family of Glucagon Like Peptide Agonists, these medications directly suppresses appetite and are often used by diabetic patients due to improvements in glucose/insulin balance. They also slow how quickly the stomach empties, increasing fullness. They may be hard to get covered for non diabetics and some plans have exclusions for weight loss purposes. Currently, these are injectable medications delivered via autoinjector pen. It can be very costly without insurance coverage (over $500/month). Small risks for pancreatitis exists and dose should be held if increased mid abdominal pain/burning. It is not to be used if previous Multiple Endocrine Neoplasia. In rodents, may increase risk of thyroid tumors and not indicated for anyone with a history of medullary thyroid cancer as a result. If changes in voice/swallowing should be discontinued. Reliable control required in women. [employer], [facility] has more information on these medications. Contrave (Bupropion/Naltrexone). Synergistic combination of a mild appetite suppressing anti-depressant (Bupropion) whose effects are increased due to interaction with Naltrexone. Naltrexone may havesome effects on craving and is often used in addiction medicine to help previous opiate addicts be less prone to relapse as it blocks the action of opiates. Should be stopped if any need for opiate pain medication, surgery or planned procedures where you'll be given sedation/anesthesia. If prolonged use, recommend stepping down bupropion over 2- 3 weeks to limit any risk of withdrawal issues. Sideeffects may include dry mouth, increased heart rate, mild elevation in Blood pressure; dizziness, ri nging in the ears, anxiety (typically due to bupropion), nausea, constipation, and some get fatigued with naltrexone. About $210 on [employer] for 120 tabs of Contrave, the brand name without insurance coverage. Generic Bupropion 75mg: $25 for 120 tabs, Naltrexone: $55 for 90 tabs without insurance coverage on [facility]. Cannot be used if /trying to conceive or breast feeding. Plenity: By mail order pharmacy only, moderately expensive. $98/month. 2-3 capsules taken with 16 oz of water, 20 minutes before 2 meals daily provides crystals that expand into a gel that fills the stomach 20-25% and provides a mechanical fullness. The Plenity then mixes with your next meal and increases satisfaction by bulking the meal up to feel bigger than it truly is. Plenity is not absorbedand gets passed through the digestive tract and excreted in stools. May cause some bloating/gas/full feeling as it behaves like a fiber in many ways. Cost not available yet. FDA cleared in June of 2018 and became available near the end of 2019 through mail order pharmacy only ([facility]). The safety and efficacy trials were done under [facility] name. Not appropriate for people with stomach or bowel motility issues as requires you to pass it through digestive tract. [employer] has more information. TRIC SIGN WIRER documented in this encounter Progress Notes * Nasir Cunningham MD - 03/23/2023 10:30 AM CST Bariatric Clinic Follow-Up Visit: Gale Munson is [...] gain in the past. Chart review shows Apparel Sales Associate calculated RMR of 2425kcal/day and protein intake goal of 80-100g/day. Lab Results Component Value Date A1C 7.3 06/17/2022 A1C 7.8 12/21/2021 A1C 6.9 11/18/2008 A1C 9.0 10/21/2008 5.4% A1c in 01/18/23 labs in [facility] system. TSH Date Value Ref Range Status 06/17/2022 0.63 0.30 - 4.20 uIU/mL Final Weight: Wt Readings from Last 5 Encounters: 03/23/23 137.9 kg (304 lb) 12/21/22 137.9 kg (304 lb) 10/10/22 135.8 kg (299 lb 4.8 oz) 08/08/22 145.6 kg (321 lb) 08/05/22 144.7 kg (319 lb) pounds Comorbidities: Patient Active Problem List Diagnosis Adjustment [...] Weakness of both legs Morbid obesity (H) Adjustment insomnia Adult failure to thrive Cardiomegaly Chronic diastolic (congestive) heart failure (H) Deficiency of other specified B group vitamins Generalized edema nursing home (current) use of insulin (H) Lymphedema, not elsewhere classified Muscle weakness (generalized) Osteomyelitis, unspecified (H) Other abnormalities of gait and mobility Other specified disorders of white blood cells Other symptoms and signs involving the musculoskeletal system Pain in left leg Pain in right leg Peripheral vascular disease, unspecified (H24) Post covid-19 condition, unspecified Repeated falls Unspecified symptoms and signs involving cognitive functions and awareness Current Outpatient Medications: acetaminophen (TYLENOL) 325 MG [...] Interim: Since our last visit, he has been seeing kidney specialist recently. Now on lisinopril andhydralazine. Victoza 1.8mg/day is tolerated. Weight stuck around 300 lbs. Appetite Doing half hour of strength training 3x weekly now at the gym. Has own apartment now and feeling proud. Lantus 15 units still. Wearing Dexcom now. Finds that when he gets ramped up too much/angry blood sugars go up. Finding that managing his stress depends on keeping social circles tight helps. Somewhat estranged from Mother/Sister and tough around the holidays. Can struggle with finances for protein options. Water retention doing much better. Planning sleep study soon again. Member at the [facility] now and doing back therapy in the pool with PT later today. Plan: 1. Diet: aiming for 1900-2050kcal/day with 70-85 grams of lean protein daily to continue good weight reductions going forward. With the costs of proteins, finding affordable/satiating option can be difficult sometimes but touch base with fusing machine tender if struggling. 2. Exercise: continue pool therapy and workouts at [facility] to keep that health benefit on overall fitness/health. With 3 days weekly the above intake goal should continue to produce good weight reductions. If you stop exercising, aiming for 1750-1950kcal/day would be your intake goal. 3. Medication: Victoza helpful for A1c control we'll continue at 1.8mg/day dose. 4. 5. Goals: would like to lose 50 lbs in 2023 with continued healthy kidneys and diabetes control. We discussed [facility] Bariatric Basics including: -eating [...] found for: TEST DIETARY HISTORY Tracking technique: CGM helpful for his glycemic control Positive Changes Since Last Visit: working out regularly. Blood sugar with excellent control Struggling With: affordability of lean proteins Getting Adequate Protein: mostly. Sleep schedule: good. Sleep study pending.feels he sleeps better recently.. PHYSICAL ACTIVITY PATTERNS: Cardiovascular: pool therapy and [facility] a few days weekly Strength Training: same REVIEW OF SYSTEMS Proud about changes he's made. Still can struggle with stress coping. Leg swellling doing better. . PHYSICAL EXAM: Vitals: Wt 137.9 kg (304 lb) BMI 43.62 kg/m?? Weight: Wt Readings from Last 3 Encounters: 03/23/23 137.9 kg (304 lb) 12/21/22 137.9 kg (304 lb) 10/10/22 135.8 kg (299 lb 4.8 oz) GEN: Pleasant on phone call. No cough/dyspnea evident. Interim study results: A1c reviewed, improved. . 30 minutes spent by me on the date of the encounter doing chart review, history and exam, documentation and further activities per the note Nasir Cunningham MD [facility] 7:55 AM 03/23/2023 TRIC SIGN WIRER * Nasir Cunningham MD - 03/23/2023 10:30 AM CST 30Virtual Visit Details Type of service: Telephone Visit Phone call duration: 30 minutes TRIC SIGN WIRER documented in this encounter Nursing Notes * Hoa Kowalski - 03/23/2023 10:30 AM CST Is the patient currently in the state of [place]? YES Visit mode:TELEPHONE If the visit is dropped, the patient can be reconnected by: TELEPHONE VISIT: Phone number: Telephone Information: Will anyone else be joining the visit? NO (If patient encounters technical issues they should call [phone] :[phone]) How would you like to obtain your AVS? MyChart Are changes needed to the allergy or medication list? No Reason for visit: RECHECK Hoa Dex VVF TRIC SIGN WIRER documented in this encounter Plan of Treatment Upcoming Encounters Date Type Department Care Team (Late st Contact Info) Description 07/27/2023 10:00 AM CDT Virtual Visit [facility] [place] [address] [place] [address] [address] [place] [phone] Nasir Cunningham MD [address] [place] [address] [address] [place], [place] [id number] documented as of this encounter Visit Diagnoses Diagnosis Type 2 diabetes mellitus with diabetic neuropathy, with long-term current use of insulin (H) Type 2 diabetes mellitus with peripheral neuropathy (H) documented in this encounter Additional Health Concerns Assessment Noted Time PHQ-9 Depression Total Score: 19 023 2:47 PM ELECTRIC SIGN WIRER documented as of this encounter Care Teams Branding Machine Operator Relationship Specialty Start Date End Date Lety Baldwin PA [address] [place] [address] PCP - General Family Practice 10/10/22 Saba Pan MD Physical Medicine and Rehabilitation 02/21/22 Samuel Rahman MD [address] [place] [address] Assigned Heart and Vascular Provider 04/02/22 Bolivar Tierney DPM [address] [place] [address] Assigned Surgical Provider 07/09/22 Rojas Walker PA-C [address] [address] Assigned Neuroscience Provider 01/07/23 documented as of this encounter
--- OUTSIDE RECORDS SUMMARY | 2023-05-23 20:58 | XMS_ITS | Clinical Summary ---
Author Name Unknown Organization [facility] Address [address] [place] [id number] Care Team Providers Care Icu Nurse Name Role Phone Saba Pan MD Unavailable [phone] Samuel Rahman MD Unavailable [phone] Bolivar Tierney DPUma Unavailable [phone] Lety Baldwin Primary Care Provider [phone] Rojas Walker-C Unavailable [phone] Jennie Coleman APRN JAVA SECURITY ARCHITECT Unavailable [phone] Allergies Active Allergy Reactions Criticality Noted Date Comments Penicillins Anaphylaxis High 10/16/2012 Medications Medication Sig Dispensed Refills Start Date End Date Status aspirin (ASA) 81 MG chewable tablet Take 81 mg by mouth daily 0 Active hydrALAZINE (APRESOLINE) 100 MG tabletIndications :Essential hypertension Take 1 tablet (100 mg) by mouth 3 times daily 0 12/29/2021 Active metFORMIN (GLUCOPHAGE) 500 MG tabletIndications :Other diabetic neurological complication associated with type 2 diabetes mellitus (H) Take 1 tablet (500 mg) by mouth 2 times daily (with meals) 0 12/29/2021 Active rosuvastatin (CRESTOR) 10 MG tablet Take 1 tablet (10 mg) by mouth daily 0 01/06/2022 Active SENNA-docusate sodium (SENNA S) 8.6-50 MG tabletIndications :Slow transit constipation Take 1 tablet by mouth At Bedtime And 1 tab BID PRN 0 01/07/2022 Active Additional Information Patient taking differently: 2 tabletOral2 TIMES DAILY, (No instructions reported), Reported on 03/28/2022 polyethylene glycol (MIRALAX) 17 GM/Dose powderIndications :Slow transit constipation Take 17 g by mouth daily 510 g 0 01/11/2022 Active Additional Information Patient taking differently:17 g Oral2 TIMES DAILY, Reported on 01/19/2022 cyanocobalamin (VITAMIN B-12) 1000 MCG tabletIndications :Vitamin B12 Deficiency Take 1,000 mcg by mouth twice a week 0 Active insulin glargine (LANTUS PEN) 100 UNIT/ML penIndications:Ty pe 2 Diabetes Mellitus Inject 15 Units Subcutaneous At Bedtime Hold for blood glucose less than 120 0 Active doxazosin (CARDURA) 1 MG tablet Take 1 mg by mouth At Bedtime Hold for blood pressure less than 100 0 Active chlorthalidone (HYGROTON) 25 MG tabletIndications :Essential hypertension Take 1 tablet (25 mg) by mouth daily 0 02/04/2022 Active acetaminophen (TYLENOL) 325 MG tablet Take 650 mg by mouth 3 times daily as needed for mild pain 0 Active torsemide (DEMADEX) 20 MG tablet Take 30 mg by mouth daily 0 Active nicotine (NICORETTE) [address] 2 mg inside cheek every hour as needed for smoking cessation 0 Active Vitamin D3 (CHOLECALCIFEROL) 25 mcg (1000 units) tablet Take 25 mcg by mouth daily 0 Active diclofenac (VOLTAREN) 1 % topical gel Apply 4 g topically 4 times daily as needed for moderate pain 0 Active blood glucose monitoring (NO BRAND SPECIFIED) meter device kitIndications:Ty pe 2 diabetes mellitus with diabetic neuropathy, with long-term current use of insulin (H) Use to test blood sugar 4 times daily or as directed. Preferred blood glucose meter OR supplies to accompany: Blood Glucose Monitor Brands: per insurance. 1 kit 0 08/08/2022 Active blood glucose (NO BRAND SPECIFIED) test stripIndications: Type 2 diabetes mellitus with diabetic neuropathy, with long-term current use of insulin (H) Use to test blood sugar 4 times daily or as directed. To accompany: Blood Glucose Monitor Brands: per insurance. 100 strip 6 08/08/2022 Active blood glucose calibration (NO BRAND SPECIFIED) solutionIndicatio ns:Type 2 diabetes mellitus with diabetic neuropathy, with long-term current use of insulin (H) To accompany: Blood Glucose Monitor Brands: per insurance. 2 each 0 08/08/2022 Active thin (NO BRAND SPECIFIED) lancetsIndication s:Type 2 diabetes mellitus with diabetic neuropathy, with long-term current use of insulin (H) Use with lanceting device. To accompany: Blood Glucose Monitor Brands: per insurance. 100 each 0 08/08/2022 Active HYDROcodone-aceta minophen (NORCO) 5-325 MG tabletIndications :Bilateral lower extremity pain TAKE 1 TABLET BY MOUTH THREE TIMES DAILY CONTROLLED SUBSTANCE-DOUBLE LOCK STORAGE 30 tablet 0 08/12/2022 Active amLODIPine (NORVASC) 10 MG tablet 0 12/20/2022 Active alcohol swab prep padsIndications:T ype 2 diabetes mellitus with diabetic neuropathy, with long-term current use of insulin (H) Use to swab area of injection/pavan as directed. 100 each 2 12/21/2022 Active insulin pen needle (BD ANNIKA U/F) 32G X 4 MM miscellaneousIndi cations:Type 2 diabetes mellitus with diabetic neuropathy, with long-term current use of insulin (H),Type 2 diabetes mellitus with peripheral neuropathy (H) Use new pen needle for each autoinjection. 100 each 4 12/21/2022 Active insulin pen needle (BD AUTOSHIELD DUO) 30G X 5 MMIndications:Typ e 2 diabetes mellitus with diabetic neuropathy, with long-term current use of insulin (H) Use 1 pen needles daily or as directed. 100 each 3 03/23/2023 Active liraglutide (VICTOZA) 18 MG/3ML solutionIndicatio ns:Type 2 diabetes mellitus with diabetic neuropathy, with long-term current use of insulin (H),Type 2 diabetes mellitus with peripheral neuropathy (H) Inject 1.8 mg Subcutaneous daily 27 mL 3 03/23/2023 Active isopropyl alcohol (RUBBING) 70 % solutionIndicatio ns:Type 2 diabetes mellitus with diabetic neuropathy, with long-term current use of insulin (H) Wipe skin prior to injection. 946 mL 1 03/23/2023 Active lisinopril (ZESTRIL) 40 MG tablet Take 40 mg by mouth daily Hold if SBP<110 0 01/20/20 22 Discontinued Active Problems Problem Noted Date Diagnosed Date Adjustment insomnia 06/07/2022 Generalized edema 06/07/2022 Post covid-19 condition, unspecified 06/07/2022 Unspecified symptoms and sig ns involving cognitive functions and awareness 06/07/2022 Other abnormalities of gait and mobility 023 Morbid obesity 02/10/2022 Adult failure to thrive 12/29/2021 Cardiomegaly 12/29/2021 Chronic diastolic (congestive) heart failure Deficiency of other specified B group vitamins 0 12/29/2021 nursing home (current) use of insulin 12/29/2021 Lymphedema, not elsewhere classified 12/29/2021 Muscle weakness (generalized) 12/29/2021 Other specified disorders of white blood cells 0 12/29/2021 Pain in left leg 12/29/2021 Pain in right leg 12/29/2021 Peripheral vascular disease, unspecified (H24) 0 12/29/2021 Repeated falls 12/29/2021 Weakness of both legs 12/21/2021 Other symptoms and signs inv olving the musculoskeletal system 12/21/2021 Type II or unspecified type diabetes mellitus without mention of complication, not stated as uncontrolled 06/29/2021 Type II or unspecified type diabetes mellitus without mention of complication, uncontrolled 06/29/2021 Renal cyst 06/17/2021 Hypertensive renal disease 06/17/2021 Generalized anxiety disorder 11/11/2020 Major depressive disorder, recurrent episode, mo derate 11/11/2020 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 11/11/2020 Current severe episode of hayes arcos depressive disorder without psychotic features 09/28/2020 Erectile dysfunction of organic origin 0 Adjustment reaction with anxiety and depression 11/26/2019 Osteomyelitis of right foot 10/15/2018 Osteomyelitis, unspecified 10/15/2018 Diabetic foot infection 10/12/2018 Diabetic neuropathy 10/12/2018 Penicillin allergy 10/12/2018 Cellulitis 10/11/2018 Resolved Problems Problem Noted Date Diagnosed Date Resolved Date Essential hypertension 12/21/202109/26 Encounters Date Type Department Care Team Description 03/23/2023 10:30 AM BRASS CHASER Virtual Visit [facility] [address] [phone] Nasir Cunningham MD Type 2 diabetes mellitus with diabetic neuropathy, with long-term current use of insulin (H); Type 2 diabetes mellitus with peripheral neuropathy (H) 03/21/2023 Telephone [facility] [place] [address] [facility] [address] [place] [address] Samantha Clark MD Transfer Note from Last 3 Months Immunizations Name Administration Dates Next Due Influenza Vaccine 18-64 (Flublok) 02/01/2019 Pneumococcal 23 valent 03/26/2009,03/26/2007 Family History Medical History Relation Comments Sleep Apnea Cousin Alcoholism Father Sleep Apnea Maternal Grandfather Relation Status Comments Cousin Father Maternal Grandfather Social History Tobacco Use Types Packs/Day Years [...] on file Sexual Orientation Not on file Last Filed Vital Signs Vital Sign Reading Time Taken Comments Blood Pressure 130/78 10/10/2022 9:24 AM CDT Pulse 67 08/08/2022 9:48 AM CDT Temperature 36.3 ??C (97.4 ??F) 08/08/2022 9:48 AM CD T Respiratory Rate 18 08/08/2022 9:48 AM CDT Oxygen Saturation 96% 08/08/2022 9:48 AM CDT Inhaled Oxygen Concentration - - Weight 137.9 kg (304 lb) 03/23/2023 10:19 AM BRASS CHASER Height 177.8 cm (5' 10) 12/21/2022 9:15 AM CDT Body Mass Index 43.62 12/21/2022 9:15 AM CDT Plan of Treatment Upcoming Encounters Date Type Department Care Team (Late st Contact Info) Description 07/27/2023 10:00 AM CDT Virtual Visit [facility] [address] [place] [phone] Nasir Cunningham MD [address] [facility] [address] [place], [place] [phone] Health Maintenance Due Date Last Done Comments ADVANCE CARE PLANNING 1975 ANNUAL REVIEW OF HM ORDERS 1975 CT COLONOGRAPHY 1975 DEPRESSION ACTION PLAN 1975 DIABETIC FOOT EXAM 1975 FIT 1975 FLEX SIG 1975 HEPATITIS B IMMUNIZATION (1 of 3 - 3-dose series) 1975 HF ACTION PLAN 1975 MICROALBUMIN 1975 URINE DRUG SCREEN 1975 YEARLY PREVENTIVE VISIT 1975 sDNA (Cologuard) 1975 COVID-19 Vaccine (#1) 1975 COLONOSCOPY 1985 COLORECTAL CANCER SCREENING 1985 HIV SCREENING 1990 HEPATITIS C SCREENING 1993 DTAP/TDAP/TD IMMUNIZATION (1 - Tdap) 2000 Pneumococcal Vaccine: Pediatrics (0 to 5 Years) and At-Risk Patients (6 to 64 Years) (2 of 2 - PCV) 03/26/2010 03/26/2009, 03/26/2007 PHQ-9 12/05/2022 06/07/2022, 03/01/2022 INFLUENZA VACCINE (#1) 2022 02/01/2019 A1C 12/18/2022 06/17/2022, 09/0 09/2021, 11/18/2008, Additional history exists BMP 12/28/2022 06/27/2022, 03/0 06/2022, 04/18/2022, Additional history exists LIPID 01/04/2023 01/04/2022 ALT 06/18/2023 06/17/2022, 01/15, 01/18/2022, Additional history exists CBC 06/18/2023 06/17/2022, 02/16, 01/31/2022, Additional history exists EYE EXAM 07/21/2023 07/20/2022 TSH W/FREE T4 REFLEX Completed 06/17/2022, 01/18/2022, 01/07/2022 HPV IMMUNIZATION Aged Out No longer e ligible based on patient's age to complete this topic IPV IMMUNIZATION Aged Out No longer e ligible based on patient's age to complete this topic MENINGITIS IMMUNIZATION Aged Out No l onger eligible based on patient's age to complete this topic RSV MONOCLONAL ANTIBODY Aged Out No l onger eligible based on patient's age to complete this topic Advance Directives For more information, please contact: [phone] Latest Code Status on File Code Status Date Activated Date Inactivated Comments Full Code 01/19/2022 9:29 AM Question Answer Comments Code status determined by: Discussion wi patient/ legal decision maker Code Status History Code Status Date Activated Date Inactivated Comments Full Code 01/18/2022 7:08 PM 01/19/2022 9:29 AM All b asic and advanced life-sustaining interventions are performed as appropriate Question Answer Comments Code status determined by: Discussion with patient/ legal decision maker Full Code 12/22/2021 3:14 PM 12/29/2021 4:49 PM All ba sic and advanced life-sustaining interventions are performed as appropriate Question Answer Comments Code status determined by: Discussion with patient/ legal decision maker No CPR- Do NOT Intubate 12/21/2021 10:24 PM 12/22/2021 3:14 PM NO basic or advanced life-sustaining interventions are performed Question Answer Comments Code status determined by: Discussion with patient/ legal decision maker Care Teams Icu Nurse Relationship Specialty Start Date End Date Lety Baldwin PA [address] [place] [address] PCP - General Family Practice 10/10/22 Saba Pan MD Physical Medicine and Rehabilitation 02/21/22 Samuel Rahman MD [address] [place] [address] [address] [place] [address] Assigned Heart and Vascular Provider 04/02/22 Bolivar Tierney DPM [address] [place] [address] [address], [place] [address] Assigned Surgical Provider 07/09/22 Rojas Walker PA-C [address] [address] Assigned Neuroscience Provider 01/07/23 Jennie Coleman APRN JAVA SECURITY ARCHITECT [address] [place] [address] Assigned PCP 05/11/23
--- OUTSIDE RECORDS SUMMARY | 2023-05-23 20:58 | XMS_ITS | Encounter Summary ---
Author Name Unknown Organization [place] Address [address] [place] [address] Care Team Providers Care Clinic Charge Nurse Name Role Phone Saba Pan MD Unavailable [phone] Samuel Rahman MD Unavailable [phone] Saba Pan MD Unavailable [phone] Bolivar Tierney DPM Unavailable [phone] Jennie Coleman APRN SLOT MACHINE FLOOR PERSON Unavailable [phone] Lety Baldwin Primary Care Provider + [phone] Reason for Visit * Reason Comments Weight Management Encounter Details Date Type Department Care Team (Late st Contact Info) Description 10/10/2022 9:45 AM CDT Office Visit [facility]ariat[facility] Care [address] [place] [address] Nasir Cunningham MD [address] [place] [address] [id number] Class 3 severe obesity due to excess calories with serious comorbidity and body mass index (BMI) of 45.0 to 49.9 in adult (H) (Primary Dx); Type 2 diabetes mellitus with diabetic neuropathy, with long-term current use of insulin (H); Type 2 diabetes mellitus with peripheral neuropathy (H); PAD (peripheral artery disease) (H) Social History Tobacco Use Types Packs/Day [...] AM CDT documented as of this encounter Last Filed Vital Signs Vital Sign Reading Time Taken Comments Blood Pressure 130/78 10/10/2022 9:24 AM CDT Pulse - - Temperature - - Respiratory Rate - - Oxygen Saturation - - Inhaled Oxygen Concentration - - Weight 135.8 kg (299 lb 4.8 oz) 10/10/2022 9:25 AM CDT Height 177.8 cm (5' 10) 10/10/2022 9:25 AM CDT Body Mass Index 42.95 10/10/2022 9:25 AM CDT documented in this encounter Patient Instructions * Patient Instructions* Nasir Cunningham MD - 10/10/2022 9:45 AM CDT Plan: 1. Diet: aiming for 1800-2000kcal/per day with 100-110 grams of lean protein daily. 2. Exercise: continue PT and looking into the membership at the [facility] for pool access. 3. Medication: Victoza well tolerated at the 1.8mg/day dose. Continue and we'll recheck 4. A1c much improved on 09/16/22 labs, down to 5.7% with medication and diet changes/weight reduction. 5. Goals: down over 10% body weight the last 3 months, well done! Your diet changes and weight losshas your A1c at the lowest level on record the last 13 years. 6. Leg edema much improved, you can cut back on Torsemide to 20mg/day now given slight bump up in creatinine earlier this month and recheck electrolytes in the next month to make sure all is on track. If legs start filling up again, bump it up to 30mg/day for a few days to get on track. 7. Reduce Lantus ot 15mg/day given improved A1c and to avoid lows. Metformin twice daily. Victoza in the morning. LEAN PROTEIN SOURCES Getting 20-30 grams of [...] Portion Calories Grams of Protein Nonfat, plain Emirati yogurt (10 grams sugar or less) 3/4 [...] (broiled, grilled, baked) 3 ounces 100 21 Jeremiah/Tuna (broiled, grilled, baked) 3 ounces 150-180 21 Shrimp, Scallops, Lobster, Crab 3 ounces 100 21 Pork loin, Pork Tenderloin 3 ounces 150 21 Boneless, skinless chicken /turkey breast (broiled, grilled, baked) 3 ounces 120 21 Kirksey, Stanley, [place], and Venison 3 ounces 120 21 Lean cuts of red meat and pork (sirloin, round, tenderloin, flank, ground 93%-96%) 3 ounces 170 21 Lean or Extra Lean Ground Steele 1/2 cup 150 20 90-95% Lean Steele Burger 1 yanna 140-180 21 Low-fat casserole with lean meat 3/4 cup 200 17 Luncheon Meats (turkey, lean ham, roast beef, chicken) 3 ounces 100 21 Egg (boiled, poached, scrambled) 1 Egg 60 7 Egg Substitute 1/2 cup 70 10 Nuts (limit to 1 serving per day) 3 Tbsp. 150 7 Nut Beaulieu (peanut, almond) Limit to 1 serving or less daily 1 Tbsp. 90 4 Soy Burger (varies) 1 90-130 15 Garbanzo, Black, Benjamin Beans 1/2 cup 110 7 Refried Beans 1/2 cup 100 7 Kidney and Rees beans 1/2 cup 110 7 Tempeh 3 oz 175 18 Vegan crumbles 1/2 cup 100 14 Tofu 1/2 cup 110 14 [place] (beans and extra lean beef or turkey) 1 cup 200 23 Lentil Stew/Soup 1 cup 150 12 Black Beth Soup 1 cup 175 12 documented in this encounter Progress Notes * Nasir Cunningham MD - 10/10/2022 9:45 AM CDT Bariatric Clinic Follow-Up Visit: Gale Munson is a 47 year old male with Body mass index is 42.95 kg/m??. presenting here today for follow-up on [...] gain in the past. Chart review shows Casino Cashier Manager calculated RMR of 2425kcal/day and protein intake goal of 80-100g/day. Weight: Wt Readings from Last 5 Encounters: 10/10/22 135.8 kg (299 lb 4.8 oz) 08/08/22 145.6 kg (321 lb) 08/05/22 144.7 kg (319 lb) 07/04/22 148.3 kg (327 lb) 06/27/22 149.9 kg (330 lb 6.4 oz) pounds Lab Results Component Value Date A1C 7.3 06/17/2022 A1C 7.8 12/21/2021 A1C 6.9 11/18/2008 A1C 9.0 10/21/2008 A1c in care everywhere was down to 5.7% 09/16/22. Comorbidities: Patient Active Problem List Diagnosis ??? Adjustment reaction with anxiety and depression ??? Cellulitis ??? 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 Diabetic foot infection (H) ??? Diabetic neuropathy (H) ??? Erectile dysfunction of organic origin ??? Generalized anxiety disorder ??? Renal cyst ??? Hypertensive renal disease ??? Major depressive disorder, recurrent episode, moderate (H) ??? Osteomyelitis of right foot (H) ??? Pain disorder associated with psychological factors and medical condition ??? Penicillin allergy ??? Type II or unspecified type diabetes mellitus without mention of complication, not stated as uncontrolled ??? Type II or unspecified type diabetes mellitus without mention of complication, uncontrolled ??? Weakness of both legs ??? Morbid obesity (H) Current Outpatient Medications: ??? acetaminophen (TYLENOL) 325 MG tablet, Take 650 mg by mouth 3 times daily as needed for mild pain, Disp: , Rfl: ??? alcohol swab prep pads, Use to swab area of injection/pavan as directed., Disp: 100 each, Rfl: 2 ??? amLODIPine (NORVASC) 5 MG tablet, Take 2 tablets (10 mg) by mouth At Bedtime, Disp: , Rfl: ??? aspirin (ASA) 81 MG chewable tablet, Take 81 mg by mouth daily, Disp: , Rfl: ??? blood glucose (NO BRAND SPECIFIED) test strip, Use to test blood sugar 4 times daily or as directed. To accompany: Blood Glucose Monitor Brands: per insurance., Disp: 100 strip, Rfl: 6 ??? blood glucose calibration (NO BRAND SPECIFIED) solution, To accompany: Blood Glucose Monitor Brands: per insurance., Disp: 2 each, Rfl: 0 ??? blood glucose monitoring (NO BRAND SPECIFIED) meter device kit, Use to test blood sugar 4 timesdaily or as directed. Preferred blood glucose meter OR supplies to accompany: Blood Glucose MonitorBrands: per insurance., Disp: 1 kit, Rfl: 0 ??? chlorthalidone (HYGROTON) 25 MG tablet, Take 1 tablet (25 mg) by mouth daily, Disp: , Rfl: ??? cyanocobalamin (VITAMIN B-12) 1000 MCG tablet, Take 1,000 mcg by mouth twice a week, Disp: , Rfl: ??? diclofenac (VOLTAREN) 1 % topical gel, Apply 4 g topically 4 times daily as needed for moderatepain, Disp: , Rfl: ??? doxazosin (CARDURA) 1 MG tablet, Take 1 mg by mouth At Bedtime Hold for blood pressure less than 100, Disp: , Rfl: ??? hydrALAZINE (APRESOLINE) 100 MG tablet, Take 1 tablet (100 mg) by mouth 3 times daily, Disp: , Rfl: ??? HYDROcodone-acetaminophen (NORCO) 5-325 MG tablet, TAKE 1 TABLET BY MOUTH THREE TIMES DAILY CONTROLLED SUBSTANCE-DOUBLE LOCK STORAGE, Disp: 30 tablet, Rfl: 0 ??? insulin glargine (LANTUS PEN) 100 UNIT/ML pen, Inject 15 Units Subcutaneous At Bedtime Hold forblood glucose less than 120, Disp: , Rfl: ??? insulin pen needle (31G X 5 MM) 31G X 5 MM miscellaneous, Use 4 pen needles daily or as directed., Disp: 100 each, Rfl: 0 ??? insulin pen needle (BD ANNIKA U/F) 32G X 4 MM miscellaneous, Use new pen needle for each autoinjection., Disp: 100 each, Rfl: 4 ??? liraglutide (VICTOZA) 18 MG/3ML solution, Inject 1.8 mg Subcutaneous daily, Disp: 27 mL, Rfl: 3 ??? metFORMIN (GLUCOPHAGE) 500 MG tablet, Take 1 tablet (500 mg) by mouth 2 times daily (with meals), Disp: , Rfl: ??? nicotine (NICORETTE) 2 MG gum, Place 2 mg inside cheek every hour as needed for smoking cessation, Disp: , Rfl: ??? polyethylene glycol (MIRALAX) 17 GM/Dose powder, Take 17 g by mouth daily (Patient taking differently: Take 17 g by mouth 2 times daily), Disp: 510 g, Rfl: ??? rosuvastatin (CRESTOR) 10 MG tablet, Take 1 tablet (10 mg) by mouth daily, Disp: , Rfl: ??? SENNA-docusate sodium (SENNA S) 8.6-50 MG tablet, Take 1 tablet by mouth At Bedtime And 1 tab BID PRN (Patient taking differently: Take 2 tablets by mouth 2 times daily), Disp: , Rfl: ??? thin (NO BRAND SPECIFIED) lancets, Use with lanceting device. To accompany: Blood Glucose Monitor Brands: per insurance., Disp: 100 each, Rfl: 0 ??? torsemide (DEMADEX) 20 MG tablet, Take 30 mg by mouth daily, Disp: , Rfl: ??? Vitamin D3 (CHOLECALCIFEROL) 25 mcg (1000 units) tablet, Take 25 mcg by mouth daily, Disp: , Rfl: Lab Results Component Value Date A1C 7.3 06/17/2022 A1C 7.8 12/21/2021 A1C 6.9 11/18/2008 A1C 9.0 10/21/2008 Interim: Since our last visit, he has dropped 32 lbs, Victoza has been well tolerated at 1.8mg/day (mornings). Lantus is at 19u/night currently. . Blood sugars have been running well 113mg/dl last night per his report. A1c is much improved, under 6 for the first time in years. Paying attention to protein intake, veggies, cut out process foods and sugar. Looking into [facility] memebship. Getting PT still. Neuropathy and toe amputations limit mobility and pain but doesn't feel like he wants to get doped up for his neuropathic pain so is managing the best he can. Today, we reviewed his RMR data and intake goals. Chart review showed little bump up at beginning of the month in creat, mild low potassium likely driven by torsemide. His legs look great today, no edema and I think he can cut back to 20mg/day and recheck electrolytes w/ his PCP this month. Blood sugars and diet changes suggest slight reduction in Lantus should be helpful for avoiding lows. Plan: 1. Diet: aiming for 1800-2000kcal/per day with 100-110 grams of lean protein daily. 2. Exercise: continue PT and looking into the membership at the [facility] for pool access. 3. Medication: Victoza well tolerated at the 1.8mg/day dose. Continue and we'll recheck 4. A1c much improved on 09/16/22 labs, down to 5.7% with medication and diet changes/weight reduction. 5. Goals: down over 10% body weight the last 3 months, well done! Your diet changes and weight losshas your A1c at the lowest level on record the last 13 years. 6. Leg edema much improved, you can cut back on Torsemide to 20mg/day now given slight bump up in creatinine earlier this month and recheck electrolytes in the next month to make sure all is on track. If legs start filling up again, bump it up to 30mg/day for a few days to get on track. 7. Reduce Lantus ot 15mg/day given improved A1c and to avoid lows. Metformin twice daily. Victoza in the morning. We discussed [facility] Bariat[facility] Basics including: -eating [...] found for: TEST DIETARY HISTORY Tracking technique: regular routine Positive Changes Since Last Visit: making his own foods. Struggling With: nothing. Blood sugar better off. Getting Adequate Protein: yes Sleep schedule: good. PHYSICAL ACTIVITY PATTERNS: Cardiovascular: limited walking capacity due to neuropathy.toe losses. Strength Training: PT REVIEW OF SYSTEMS Mild constipation. miralax and senna works for him. . PHYSICAL EXAM: Vitals: BP 130/78 Ht 1.778 m (5' 10) Wt 135.8 kg (299 lb 4.8 oz) BMI 42.95 kg/m?? Weight: Wt Readings from Last 3 Encounters: 10/10/22 135.8 kg (299 lb 4.8 oz) 08/08/22 145.6 kg (321 lb) 08/05/22 144.7 kg (319 lb) GEN: Pleasant, well groomed, in no acute distress HEENT: Thinning face . NECK: No swelling. HEART: RRR. LUNGS: No respiratory difficulty noted. No cough. No wheezes. ABDOMEN: central adiposity. EXTREMITIES: No tremor. Ambulation is assisted w/ walker.. NEURO: Alert and Oriented X3, fluent speech. . SKIN: No visible rashes. . Interim study results: A1c in [facility] much improved, down to 5.2%. 30 minutes spent by me on the date of the encounter doing chart review, history and exam, documentation and further activities per the note Nasir Cunningham MD [facility] 9:26 AM 10/10/2022 documented in this encounter Plan of Treatment Upcoming Encounters Date Type Department Care Team (Late st Contact Info) Description 07/27/2023 10:00 AM CDT Virtual Visit [facility]ariat[facility] Care [address] [place] [phone] Nasir Cunningham MD [address] [place] [id number] documented as of this encounter Visit Diagnoses Diagnosis Class 3 severe obesity due to excess calories with serious comorbidity and body mass index (BMI) of 45.0 to 49.9 in adult (H)- Primary Type 2 diabetes mellitus with diabetic neuropathy, with long-term current use of insulin (H) Type 2 diabetes mellitus with peripheral neuropathy (H) PAD (peripheral artery disease) (H24) Unspecified disorders of arteries and arterioles documented in this encounter Additional Health Concerns Assessment Noted Time PHQ-9 Depression Total Score: 19 023 2:47 PM GEOGRAPHIC ANALYST documented as of this encounter Care Teams Clinic Charge Nurse Relationship Specialty Start Date End Date Lety Baldwin [place] [address] PCP - General Family Practice 10/10/22 Saba Pan MD Physical Medicine and Rehabilitation 02/21/22 Samuel Rahman MD [facility] [address] [place] [address] Assigned Heart and Vascular Provider 04/02/22 Saba Pan MD [address] [place] [address] [address] [place] [address] Assigned Neuroscience Provider 06/11/22 01/06/23 Bolivar Tierney DPM [address] [place] [address] [address] [place] [address] Assigned Surgical Provider 07/09/22 Jennie Coleman APRN SLOT MACHINE FLOOR PERSON [address] [place] [address] Assigned Pain Medication Provider 08/13/22 02/10/23 documented as of this encounter
--- OUTSIDE RECORDS SUMMARY | 2023-05-23 20:58 | XMS_ITS | Encounter Summary ---
Author Name Unknown Organization [place] Address [address] [place] [address] Care Team Providers Care Ceramic Designer Name Role Phone Rashadjoscarla Jennie TADEO CNP Primary Care Provider + [phone] [place]([facility]) [facility] Care Unavailable Saba Pan MD Unavailable [phone] Samuel Rahman MD Unavailable [phone] Saba Pan MD Unavailable [phone] Bolivar Tierney DPM Unavailable [phone] Reason for Visit * Reason Onset Date Comments Refill Request 08/12/2022 Encounter Details Date Type Department Care Team (Late st Contact Info) Description 08/12/2022 [facility] Geriatrics [address] [place] [address] Lexy Boone, RN Refill Request Social History Tobacco Use Types Packs/Day Years [...] was confirmed or suspected to have Coronavirus/COVID-19? Unable to assess 08/08/2022 7:44 AM CDT documented as of this encounter Plan of Treatment Upcoming Encounters Date Type Department Care Team (Late st Contact Info) Description 07/27/2023 10:00 AM CDT Virtual Visit [facility] Surgery Clinic and Bariatrics Care [place] [address] [facility] [address] [place] [address] Nasir Cunningham MD [address] [facility] [address] [place] [address] documented as of this encounter Visit Diagnoses Diagnosis Bilateral lower extremity pain documented in this encounter Additional Health Concerns Assessment Noted Time PHQ-9 Depression Total Score: 19 023 2:47 PM BACKUP OPERATOR documented as of this encounter Care Teams Ceramic Designer Relationship Specialty Start Date End Date Jennie Coleman APRN CORRESPONDENCE TRANSCRIBER [address] [place] [address] PCP - General Geriatric Medicine 02/10/22 08/15/22 [place]([facility]), [facility] [address] [place] [phone] 02/10/22 08/15/22 [place] [address] [place] [phone] Physical Medicine and Rehabilitation 02/21/22 Samuel Rahman MD [address] [facility] [address] [place] [address] Assigned Heart and Vascular Provider 04/02/22 Saba Pan MD [address] [facility] [address] [place] [address] Assigned Neuroscience Provider 06/11/22 01/06/23 Bolivar Tierney DPM [address] [facility] [address] [place] [address] Assigned Surgical Provider 07/09/22 documented as of this encounter
--- OUTSIDE RECORDS SUMMARY | 2023-05-23 20:58 | XMS_ITS | Referral Summary ---
Author Name Unknown Organization [place] Address [address] [place] [address] Care Team Providers Care Plastic Products Sales Representative Name Role Phone Saba Pan MD Unavailable [phone] Samuel Rahman MD Unavailable [phone] Bolivar Tierney DPUma Unavailable [phone] Lety Baldwin Primary Care Provider + [phone] Rojas Walker-C Unavailable [phone] Jennie Coleman APRN GROUP TEACHER Unavailable [phone] Encounters Date Type Department Care Team Description 03/23/2023 10:30 AM BIOMETRIC SCREENER Virtual Visit [facility] Surgery Clinic and Bariatrics Care [place] [id number] [facility] [address] [place] [address] Nasir Cunningham MD Type 2 diabetes mellitus with diabetic neuropathy, with long-term current use of insulin (H); Type 2 diabetes mellitus with peripheral neuropathy (H) 03/21/2023 Telephone [facility] Pain Management [place] [address] [facility] [address] [place] [address] Samantha Clark MD Transfer Note from Last 3 Months Allergies Active Allergy Reactions Criticality Noted Date [...] other specified B group vitamins 0 12/29/2021 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 12/29/2021 Lymphedema, not [...] medical condition 11/11/2020 Current severe episode of ma isrrael depressive disorder without psychotic features 09/28/2020 Erectile dysfunction of organic origin 0 Adjustment reaction with anxiety and depression 11/26/2019 Osteomyelitis of right foot 10/15/2018 Osteomyelitis, unspecified 10/15/2018 Diabetic foot infection 10/12/2018 Diabetic neuropathy 10/12/2018 Penicillin allergy 10/12/2018 Cellulitis 10/11/2018 Resolved Problems Problem Noted Date Diagnosed Date Resolved Date Essential hypertension 12/21/202109/26 Immunizations Name Administration Dates Next Due Influenza Vaccine 18-64 (Flublok) 02/01/2019 Pneumococcal 23 valent 03/26/2009,03/26/2007 Social History Tobacco Use Types Packs/Day Years [...] 137.9 kg (304 lb) 03/23/2023 10:19 AM BIOMETRIC SCREENER Height 177.8 cm (5' 10) 12/21/2022 9:15 AM CDT Body Mass Index 43.62 12/21/2022 9:15 AM CDT Plan of Treatment Upcoming Encounters Date Type Department Care Team (Late st Contact Info) Description 07/27/2023 10:00 AM CDT Virtual Visit [facility] Surgery [facility] and Bariatrics Care [address] [phone] Nasir Cunningham MD [address] [place] [address] Advance Directives For more information, please contact: [phone] Latest Code Status on File Code Status Date Activated Date Inactivated Comments Full Code 01/19/2022 9:29 AM Question Answer Comments Code status determined by: Discussion wi th patient/ legal decision maker Code Status History [...] with patient/ legal decision maker Care Teams Plastic Products Sales Representative Relationship Specialty Start Date End Date Lety Baldwin PA [address] [place] [address] PCP - General Family Practice 10/10/22 Saba Pan MD Physical Medicine and Rehabilitation 02/21/22 Samuel Rahman MD [address] [place] [address] [address] [place] [address] Assigned Heart and Vascular Provider 04/02/22 Bolivar Tierney DPM [address] [place] [address] [address] [place] [address] Assigned Surgical Provider 07/09/22 Rojas Walker PA-C [address] [address] Assigned Neuroscience Provider 01/07/23 Jennie Coleman APRN GROUP TEACHER [address] [place] [address] Assigned PCP 05/11/23
--- OUTSIDE RECORDS SUMMARY | 2023-05-23 20:58 | XMS_ITS | Encounter Summary ---
Author Name Unknown Organization [facility] Address [address] [place] [address] Care Team Providers Care Portable Track Crew Chief Name Role Phone Saba Pan MD Unavailable [phone] Samuel Rahman MD Unavailable [phone] Saba Pan MD Unavailable [phone] Bolivar Tierney DPM Unavailable [phone] Jennie Coleman APRN MACHINE FILLER Unavailable [phone] Lety Baldwin Primary Care Provider [phone] Encounter Details Date Type Department Care Team (Latest Contact Info) Description 10/10/2022 Travel Social History Tobacco Use Types Packs/Day Years [...] Description 07/27/2023 10:00 AM CDT Virtual Visit [facility] Surgery Clinic and Bariatrics Care [place] [address] [facility] [address] [place] [phone] Nasir Cunningham MD [address] [facility] [address] [place] [address] documented as of this encounter Visit Diagnoses Not on filedocumented in this encounter Additional Health Concerns Assessment Noted Time PHQ-9 Depression Total Score: 19 023 2:47 PM ELECTRICAL HIGH TENSION TESTER documented as of this encounter Care Teams Portable Track Crew Chief Relationship Specialty Start Date End Date Lety Baldwin PA [address] [place] [address] PCP - General Family Practice 10/10/22 Saba Pan MD Physical Medicine and Rehabilitation 02/21/22 Samuel Rahman MD [address] [facility] [address] [place] [address] Assigned Heart and Vascular Provider 04/02/22 Saba Pan MD [address] [facility] [address] [place] [address] Assigned Neuroscience Provider 06/11/22 01/06/23 Bolivar Tierney DPM [address] [facility] [address] [place] [address] Assigned Surgical Provider 07/09/22 Jennie Coleman APRN MACHINE FILLER [address] [place] [address] Assigned Pain Medication Provider 08/13/22 02/10/23 documented as of this encounter
--- OUTSIDE RECORDS SUMMARY | 2023-05-23 20:59 | XMS_ITS | Encounter Summary ---
Author Name Unknown Organization [place] Address [address] [place] [address] Care Team Providers Care Automotive Parts Manager Name Role Phone Jennie Coleman APRN LINE WALKER Primary Care Provider + [phone] [facility] Care Unavailable Saba Pan MD Unavailable [phone] Samuel Rahman MD Unavailable [phone] Saba Pan MD Unavailable + [phone] Bolivar Tierney Unavailable [phone] Reason for Visit * Reason Comments Erroneous encounter-disregard Encounter Details Date Type Department Care Team (Late st Contact Info) Description 08/05/2022 11:00 AM CDT Discharge Summary Shelter [facility] Geriatrics [address] [place] [phone] Jennie Coleman APRN CNP [address] [place] [address] Erroneous encounter-disregard Social History Tobacco Use Types Packs/Day Years [...] suspected to have Coronavirus/COVID-19? Unable to assess 08/05/2022 8:06 AM CDT documented as of this encounter Last Filed Vital Signs Vital Sign Reading Time Taken Comments Blood Pressure 135/75 08/05/2022 9:28 AM CDT Pulse 67 08/05/2022 9:28 AM CDT Temperature 36.8 ??C (98.3 ??F) 08/05/2022 9:28 AM CD T Respiratory Rate 18 08/05/2022 9:28 AM CDT Oxygen Saturation 98% 08/05/2022 9:28 AM CDT Inhaled Oxygen Concentration - - Weight 144.7 kg (319 lb) 08/05/2022 9:28 AM CDT Height 177.8 cm (5' 10) 08/05/2022 9:28 AM CDT Body Mass Index 45.77 08/05/2022 9:28 AM CDT documented in this encounter Progress Notes * Mary Tejada CNA - 08/05/2022 11:00 AM CDT A user error has taken place: encounter opened in error, closed for administrative reasons. documented in this encounter Plan of Treatment Upcoming Encounters Date Type Department Care Team (Late st Contact Info) Description 07/27/2023 10:00 AM CDT Virtual Visit [facility] [address] [phone] Nasir Cunningham MD [address] [place] [address] documented as of this encounter Visit Diagnoses Diagnosis ERRONEOUS ENCOUNTER--DISREGARD- Primary documented in this encounter Additional Health Concerns Assessment Noted Time PHQ-9 Depression Total Score: 19 023 2:47 PM FORENSIC PSYCHIATRIST documented as of this encounter Care Teams Automotive Parts Manager Relationship Specialty Start Date End Date Jennie Coleman APRN LINE WALKER [address] [place] [address] PCP - General Geriatric Medicine 02/10/22 08/15/22 [facility] [address] [place] [phone] 02/10/22 08/15/22 [place] [address] [place] [phone] Physical Medicine and Rehabilitation 02/21/22 Samuel Rahman MD [address] [place] [address] [address], [place] [address] Assigned Heart and Vascular Provider 04/02/22 Saba Pan MD [address] [place] [address] [address] [place] [address] Assigned Neuroscience Provider 06/11/22 01/06/23 Bolivar Tierney DPM [address] [place] [address] [address] [place] [address] Assigned Surgical Provider 07/09/22 documented as of this encounter
--- OUTSIDE RECORDS SUMMARY | 2023-05-23 20:59 | XMS_ITS | Encounter Summary ---
Author Name Unknown Organization [place] Address [address] [place] [address] Care Team Providers Care Door Glass Installer Name Role Phone Jared Jennie TADEO CNP Primary Care Provider + [phone] [place] Unavailable Saba Pan MD Unavailable [phone] Samuel Rahman MD Unavailable +[phone] Saba Pan MD Unavailable [phone] Encounter Details Date Type Department Care Team (Latest Contact Info) Description 06/27/2022 Travel Social History Tobacco Use Types Packs/Day [...] suspected to have Coronavirus/COVID-19? Unable to assess 06/27/2022 11:49 AM CDT documented as of this encounter Plan of Treatment Upcoming Encounters Date Type Department Care Team (Late st Contact Info) Description 07/27/2023 10:00 AM CDT Virtual Visit [facility] Care [address] [phone] Nasir Cunningham MD 2945 [facility] 200 [place], [place] [phone] documented as of this encounter Visit Diagnoses Not on filedocumented in this encounter Additional Health Concerns Assessment Noted Time PHQ-9 Depression Total Score: 19 023 2:47 PM CADD TECHNICIAN documented as of this encounter Care Teams Door Glass Installer Relationship Specialty Start Date End Date Jennie Coleman APRN LAND USE PLANNER [address] [place] [address] PCP - General Geriatric Medicine 02/10/22 08/15/22 [place](Fgs)[facility] [address] [place] [phone] 02/10/22 08/15/22 [place] [address] [place] [phone] Physical Medicine and Rehabilitation 02/21/22 Samuel Rahman MD 2945 [facility] [address] [place] [address] Assigned Heart and Vascular Provider 04/02/22 Saba Pan MD 9 [facility] 3rd [place] [address] Assigned Neuroscience Provider 06/11/22 01/06/23 documented as of this encounter
--- OUTSIDE RECORDS SUMMARY | 2023-05-23 20:59 | XMS_ITS | Encounter Summary ---
Author Name Unknown Organization [place] Address [address] [place] [address] Care Team Providers Care Yeast Maker Name Role Phone Jennie Coleman APRN, CNP Primary Care Provider + [phone] [facility] Unavailable Saba Pan MD Unavailable [phone] Samuel Rahman MD Unavailable +[phone] Saba Pan MD Unavailable [phone] Reason for Visit * Reason Comments [facility]ci Acute Encounter Details Date Type Department Care Team (Late st Contact Info) Description 06/24/2022 10:30 AM [facility] Visit [facility] Geriatrics [address] [place] [phone] Jennie Coleman APRN KNIFE GRINDER [address] [place] [address] Recurrent major depressive disorder, remission status unspecified (H) (Primary Dx); Lymphedema; Chronic heart failure with preserved ejection fraction (H); Vitamin D deficiency Social History Tobacco Use Types Packs/Day Years [...] suspected to have Coronavirus/COVID-19? No / Unsure 07/04/2022 8:07 AM CDT documented as of this encounter Last Filed Vital Signs Vital Sign Reading Time Taken Comments Blood Pressure 121/71 06/24/2022 8:36 AM WEAPONS OFFICER [employer] Pulse 76 06/24/2022 8:36 AM WEAPONS OFFICER [employer] Temperature 36.8 ??C (98.2 ??F) 06/24/2022 8:36 AM CS T Respiratory Rate 18 06/24/2022 8:36 AM WEAPONS OFFICER [employer]IV[employer] Oxygen Saturation 97% 06/24/2022 8:36 AM WEAPONS OFFICER [employer]IVITY Inhaled Oxygen Concentration - - Weight 151.5 kg (334 lb) 06/24/2022 8:36 AM WEAPONS OFFICER [employer]IVITY Height 177.8 cm (5' 10) 06/24/2022 8:36 AM WEAPONS OFFICER [employer] ACTIVITY Body Mass Index 47.92 06/24/2022 8:36 AM WEAPONS OFFICER [employer] ACTIVITY documented in this encounter Progress Notes * Jennie Coleman APRN KNIFE GRINDER - 06/24/2022 10:30 AM CST [facility] GERI[facility] Chief Complaint Patient presents with ??? Fci Acute HPI: Gale Munson is a 47 year old (1975), who is being seen today for an episodic care visit at: [facility] ([facility]) [[id number]]. Today's concern is: Seen today for follow up onrecent medical weight loss evaluation. Lab work revealed mild creatinine eleavtion at 1.35, b12 1.6k, A1C 7.3 and Vit D 16. Seen today up on the unit in LTC. He is in good spirits, feels recently added Victoza is very helpful with night time cravings and BG readings have been good. He is feeling cautiously optimistic as his health management is improving and he is getting more information about [facility] housing. Dr. Etienne though bariatric surgery might be reasonable in the future and encouraged ongoing lifestyle modificaiton. Edema in LE is improved. He continues following with his psychiatrist and ACP. He is denying CP, SOB. Allergies, and PMH/PSH reviewed in EPIC today. REVIEW OF SYSTEMS: 4 point ROS including Respiratory, CV, GI and , other than that noted in the HPI, is negative Objective: BP 121/71 Pulse 76 Temp 98.2 ??F (36.8 ??C) Resp 18 Ht 1.778 m (5' 10) Wt (!) 151.5 kg (334 lb) SpO2 97% BMI 47.92 kg/m?? GENERAL APPEARANCE: Alert, in no distress RESP: respiratory effort and palpation of chest normal, lungs clear to auscultation , no respiratory distress CV: Palpation and auscultation of heart done , regular rate and rhythm, no murmur, rub, or gallop, peripheral edema 1+ in ble NEURO: Cranial nerves 2-12 are normal tested and grossly at patient's baseline PSYCH: bright affect Labs done in SNF are in [facility]. Please refer to them using [facility]Care Everywhere. and Recent labs in [facility] reviewed by me today. Assessment/Plan: (F33.9) Recurrent major depressive disorder, remission status unspecified (H) (primary encounter diagnosis) Comment: Chronic depression, still struggles with mood and coping but overall immensely improved, more social on the unit, remains hopeful and very motivated. Plan: follow-up with psychiatry, psychology per recommendations. Monitor mood. (I89.0) Lymphedema (I50.32) Chronic heart failure with preserved ejection fraction (H) Comment: Chronic LE edema, appears he is being slightly over diuresed, dry on BMP, will reduce torsemide to 30 mg daily Plan: decrease torsemide to 30 mg daily, recheck BMP in three days, monitor weights, exam. (E53.8) Vitamin B12 deficiency (non anemic) - resolved Comment: will reduce b12 to twice weekly Plan: b12 twice weekly (E55.9) Vitamin D deficiency Comment: per lab work from Dr. Cunningham, appreciate their input. Orders written to start conservative replacement in facility today Plan: vit D 25 mcg daily Electronically signed by: Jennie Coleman APRN CNP documented in this encounter Plan of Treatment Upcoming Encounters Date Type Department Care Team (Late st Contact Info) Description 07/27/2023 10:00 AM CDT Virtual Visit [facility] Surgery Clinic and Bariatrics Care [facility] [address] [facility] 200 [place] [phone] Nasir Cunningham MD 2945 [facility] 200 [place] [address] documented as of this encounter Visit Diagnoses Diagnosis Recurrent major depressive disorder, remission status unspecified (H24)- Primary Lymphedema Other lymphedema Chronic heart failure with preserved ejection fraction (H) Vitamin D deficiency Unspecified vitamin D deficiency documented in this encounter Additional Health Concerns Assessment Noted Time PHQ-9 Depression Total Score: 19 023 2:47 PM WEAPONS OFFICER [employer]IV[employer] documented as of this encounter Care Teams Yeast Maker Relationship Specialty Start Date End Date Jennie Coleman APRN CNP 17[address] [place] [address] PCP - General Geriatric Medicine 02/10/22 08/15/22 [place](Fgs), [facility] [address] [place] [phone] 02/10/22 08/15/22 [place] [address] [place] [phone] Physical Medicine and Rehabilitation 02/21/22 Samuel Rahman MD 2945 [facility] [address] [place] [address] Assigned Heart and Vascular Provider 04/02/22 Saba Pan MD [address] [facility] [address] [place] [address] Assigned Neuroscience Provider 06/11/22 01/06/23 documented as of this encounter
--- OUTSIDE RECORDS SUMMARY | 2023-05-23 20:59 | XMS_ITS | Encounter Summary ---
Author Name Unknown Organization [place] Address [address] [place] [address] Care Team Providers Care Commercial Relief Driver Name Role Phone Jared Jennie TADEO CNP Primary Care Provider + [phone] [facility] Unavailable Saba Pan MD Unavailable [phone] Samuel Rahman MD Unavailable [phone] Saba Pan MD Unavailable [phone] Encounter Details Date Type Department Care Team (Latest Contact Info) Description 07/04/2022 Travel Social History Tobacco Use Types Packs/Day [...] Description 07/27/2023 10:00 AM CDT Virtual Visit [facility] Surgery Clinic and Bariatrics Care [address] [place] [address] [place] [phone] Nasir Cunningham MD 2945 [facility] 200 [place], [place] [phone] documented as of this encounter Visit Diagnoses Not on filedocumented in this encounter Additional Health Concerns Assessment Noted Time PHQ-9 Depression Total Score: 19 023 2:47 PM AUTOMATIC CASTING MACHINE OPERATOR documented as of this encounter Care Teams Commercial Relief Driver Relationship Specialty Start Date End Date Jennie Coleman APRN VENEER SLICING MACHINE OPERATOR 17[address] [place] [address] PCP - General Geriatric Medicine 02/10/22 08/15/22 [place](Fgs)[facility] [address] [place] [phone] 02/10/22 08/15/22 Saba Pan [place] [id number] [place] [phone] Physical Medicine and Rehabilitation 02/21/22 Samuel Rahman MD 2945 [facility] [address] [place] [address] Assigned Heart and Vascular Provider 04/02/22 Saba Pan MD 9 [facility] 3rd [place] [address] Assigned Neuroscience Provider 06/11/22 01/06/23 documented as of this encounter
--- OUTSIDE RECORDS SUMMARY | 2023-05-23 20:59 | XMS_ITS | Encounter Summary ---
Author Name Unknown Organization [place] Address [address] [place] [address] Care Team Providers Care [facility] Attendant Name Role Phone Jennie Coleman APRN, CNP Primary Care Provider + [phone] Center(Fgs) [facility] Care Unavailable Saba Pan MD Unavailable [phone] Samuel Rahman MD Unavailable [phone] Saba Pan MD Unavailable [phone] Reason for Visit * Reason Comments Medication Refill Encounter Details Date Type Department Care Team (Late st Contact Info) Description 06/21/2022 Refill [facility] [address] [place] [phone] Jennie Coleman APRN BRUISE TRIMMER [address] [place] [address] Medication Refill Social History Tobacco Use Types Packs/Day Years [...] suspected to have Coronavirus/COVID-19? No / Unsure 06/17/2022 1:28 PM CLOCK SMITH documented as of this encounter Miscellaneous Notes * Telephone Encounter - Jennie Coleman APRN CNP - 06/21/2022 3:42 PM CLOCK SMITH PDMP reviewed without irregularities. Message sent to nursing to inquire about pain clinic referralsent in February. K SMITH documented in this encounter Plan of Treatment Upcoming Encounters Date Type Department Care Team (Late st Contact Info) Description 07/27/2023 10:00 AM CDT Virtual Visit [facility] Care [address] [phone] Nasir Cunningham MD [address] [place] [phone] documented as of this encounter Visit Diagnoses Diagnosis Bilateral lower extremity pain documented in this encounter Additional Health Concerns Assessment Noted Time PHQ-9 Depression Total Score: 19 023 2:47 PM CLOCK SMITH documented as of this encounter Care Teams [facility] Attendant Relationship Specialty Start Date End Date Jennie Coleman APRN CNP [address] [place] [address] PCP - General Geriatric Medicine 02/10/22 08/15/22 [place](Fgs)[facility] [id number] [place] [phone] 02/10/22 08/15/22 [place] [id number] [place] [phone] Physical Medicine and Rehabilitation 02/21/22 Samuel Rahman MD 2945 [facility] [address] [place] [address] Assigned Heart and Vascular Provider 04/02/22 Saba Pan MD 909 [facility] 3rd [place] [address] Assigned Neuroscience Provider 06/11/22 01/06/23 documented as of this encounter
--- OUTSIDE RECORDS SUMMARY | 2023-05-23 20:59 | XMS_ITS | Encounter Summary ---
Author Name Unknown Organization [place] Address [address] [place] [address] Care Team Providers Care Watch Mechanic Name Role Phone Jennie Coleman APRN, CNP Primary Care Provider + [place](Fgs), [facility] Unavailable Saba Pan MD Unavailable +[phone] Samuel Rahman MD Unavailable [phone] Saba Pan MD Unavailable + [phone] Bolivar Tierney DPM Unavailable [phone] Jennie Coleman APRN, CNP Unavailable + Lety Baldwin Primary Care Provider +[phone] Rojas Walker PA-C Unavailable [phone] Jennie Coleman APRN, CNP Unavailable + Reason for Visit * Reason Comments Medication Refill Encounter Details Date Type Department Care Team (Late st Contact Info) Description 08/06/2022 Refill [facility] [address] [place] [address] Jennie Coleman APRN CNP [address] [place] [address] Medication Refill Social History Tobacco Use Types [...] Description 07/27/2023 10:00 AM CDT Virtual Visit [facility] Surgery Clinic and Bariatrics Care [address] [phone] Nasir Cunningham MD [address] [place] [phone] documented as of this encounter Visit Diagnoses Diagnosis Bilateral lower extremity pain documented in this encounter Additional Health Concerns Assessment Noted Time PHQ-9 Depression Total Score: 19 023 2:47 PM WELDING LEAD BURNER documented as of this encounter Care Teams Watch Mechanic Relationship Specialty Start Date End Date Jennie Coleman APRN CNP [address] [place] [address] PCP - General Geriatric Medicine 02/10/22 08/15/22 Lety Baldwin PA [address] [place] [address] PCP - General Family Practice 10/10/22 [place](Fgs), [address] [phone] 02/10/22 08/15/22 [place] [address] [place] [address] Physical Medicine and Rehabilitation 02/21/22 Samuel Rahman MD 2945 [facility] [address] [place] [address] Assigned Heart and Vascular Provider 04/02/22 Saba Pan MD 909 [facility] [address] 3rd [place] [address] Assigned Neuroscience Provider 06/11/22 01/06/23 Bolivar Tierney DPM 2945 [facility] [address] [place] [address] Assigned Surgical Provider 07/09/22 Jennie Coleman APRN REFUGE MANAGER [address]00 [place] [address] Assigned Pain Medication Provider 08/13/22 02/10/23 Rojas Walker PA-C [address] [address] Assigned Neuroscience Provider 01/07/23 Jennie Coleman APRN REFUGE MANAGER [address] [place] [address] Assigned PCP 05/11/23 documented as of this encounter
--- OUTSIDE RECORDS SUMMARY | 2023-05-23 20:59 | XMS_ITS | Encounter Summary ---
Author Name Unknown Organization [facility] Address [address] [place] [id number] Care Team Providers Care Computer Networking Instructor Name Role Phone Yoav Coleman APRN, CNP Primary Care Provider [phone] [facility] Unavailable Saba Pan MD Unavailable [phone] Samuel Rahman MD Unavailable [phone] Saba Pan MD Unavailable [phone] Bolivar Tierney DPM Unavailable [phone] Reason for Referral * Home Health Therapies & Aides (Routine: Next available opening) - Pending Review Specialty Diagnoses / Procedures Referred By Contjorge t Referred To Contact Diagnoses Pain disorder associated with psychological factors and medical condition Bilateral lower extremity pain PAD (peripheral artery disease) (H24) S/P amputation of lesser toe, right (H24) Long COVID Type 2 diabetes mellitus with diabetic neuropathy, with long-term current use of insulin (H) Chronic heart failure with preserved ejection fraction (H) Lymphedema Morbid obesity (H) CKD (chronic kidney disease) stage 2, GFR 60-89 ml/min Recurrent major depressive disorder, remission status unspecified (H24) Vitamin D deficiency Adjustment insomnia Primary hypertension Slow transit constipation Hip pain, left Anxiety Sinus bradycardia RBBB Left ventricular hypertrophy Yoav Coleman APRN CNP [address] [place] [address] Referral ID Status Reason Start Date Expiration Date V isits Requested Visits Authorized [id number] Pending Review 08/08/2022 08/08/2023 1 1 Question Answer Reason for Referral: Alf, Physical Therapy Physical Therapy Eval and Treat for: Gait Training, Range of Motion, Therapeutic Exercise, Lymphedema (OT can eval and treat based on availability) Alf Eval and Treat for: Disease management, Complex aftercare, Complex medication teaching and monitoring Additional Services Needed: Occupational Therapy, Home Health Aide Occupational Therapy Eval and Treat for: ADLs, Adaptive Therapy, Home Safety, Bathing Is the patient homebound? Yes Homebound Status (describe the functional limitations that support this patient is confined to his/her home. Medicaid recipients are not required to be homebound.): Requires assistance of another person or specialized equipment is needed I attest that I saw or will see the patient on this date: 08/08/2022 Provider to follow patient YOAV COLEMAN [[id number]] Reason for Visit * Reason Comments Discharge Summary Longterm Encounter Details Date Type Department Care Team (Late st Contact Info) Description 08/08/2022 11:30 AM CDT Discharge Summary Longterm [facility] [address] [place] [phone] Yoav Coleman APRN CNP [address] [place] [id number] Discharge Summary Longterm Social History Tobacco Use Types Packs/Day Years [...] Reading Time Taken Comments Blood Pressure 135/75 08/08/2022 9:48 AM CDT Pulse 67 08/08/2022 9:48 AM CDT Temperature 36.3 ??C (97.4 ??F) 08/08/2022 9:48 AM CD T Respiratory Rate 18 08/08/2022 9:48 AM CDT Oxygen Saturation 96% 08/08/2022 9:48 AM CDT Inhaled Oxygen Concentration - - Weight 145.6 kg (321 lb) 08/08/2022 9:48 AM CDT Height 177.8 cm (5' 10) 08/08/2022 9:48 AM CDT Body Mass Index 46.06 08/08/2022 9:48 AM CDT documented in this encounter Patient Instructions * Patient Instructions* Yoav Coleman APRN BOOM PUMP OPERATOR - 08/08/2022 11:30 AM CDT Gale Munson Birthdate: 1975 SSN: [id number] [facility] Admission Date: 12/29/21 Discharge Date: 08/12/2022 PHYSICIAN's DISCHARGE SUMMARY / ORDER SHEET 1. Discharge to: [facility] 2. Medications: Current Outpatient Medications Medication Sig Dispense Refill acetaminophen (TYLENOL) 325 MG tablet Take 650 mg by mouth 3 times daily as needed for mild pain alcohol swab prep pads Use to swab area of injection/pavan as directed. 100 each 2 amLODIPine (NORVASC) 5 MG tablet Take 2 tablets (10 mg) by mouth At Bedtime aspirin (ASA) 81 MG chewable tablet Take 81 mg by mouth daily blood glucose (NO BRAND SPECIFIED) test strip Use to test blood sugar 4 times daily or as directed.To accompany: Blood Glucose Monitor Brands: per insurance. 100 strip 6 blood glucose calibration (NO BRAND SPECIFIED) solution To accompany: Blood Glucose Monitor Brands:per insurance. 2 each 0 blood glucose monitoring (NO BRAND SPECIFIED) meter device kit Use to test blood sugar 4 times daily or as directed. Preferred blood glucose meter OR supplies to accompany: Blood Glucose Monitor Brands: per insurance. 1 kit 0 chlorthalidone (HYGROTON) 25 MG tablet Take 1 tablet (25 mg) by mouth daily cyanocobalamin (VITAMIN B-12) 1000 MCG tablet Take 1,000 mcg by mouth twice a week diclofenac (VOLTAREN) 1 % topical gel Apply 4 g topically 4 times daily as needed for moderate pain doxazosin (CARDURA) 1 MG tablet Take 1 mg by mouth At Bedtime Hold for blood pressure less than 100 hydrALAZINE (APRESOLINE) 100 MG tablet Take 1 tablet (100 mg) by mouth 3 times daily HYDROcodone-acetaminophen (NORCO) 5-325 MG tablet TAKE 1 TABLET BY MOUTH THREE TIMES DAILY CONTROLLED SUBSTANCE-DOUBLE LOCK STORAGE 90 tablet 0 insulin glargine (LANTUS PEN) 100 UNIT/ML pen Inject 19 Units Subcutaneous At Bedtime Hold for blood glucose less than 120 insulin pen needle (31G X 5 MM) 31G X 5 MM miscellaneous Use 4 pen needles daily or as directed. 100 each 0 liraglutide (VICTOZA) 18 MG/3ML solution Start 0.6mg injected once daily for 2 weeks then increase to 1.2mg/day for 2 weeks then increase to 1.8mg/day if tolerated. (Patient taking differently: Inject 1.8 mg Subcutaneous daily) 15 mL 3 metFORMIN (GLUCOPHAGE) 500 MG tablet Take 1 tablet (500 mg) by mouth 2 times daily (with meals) nicotine (NICORETTE) [address] 2 mg inside cheek every hour as needed for smoking cessation polyethylene glycol (MIRALAX) 17 GM/Dose powder Take 17 g by mouth daily (Patient taking differently: Take 17 g by mouth 2 times daily) 510 g rosuvastatin (CRESTOR) 10 MG tablet Take 1 tablet (10 mg) by mouth daily SENNA-docusate sodium (SENNA S) 8.6-50 MG tablet Take 1 tablet by mouth At Bedtime And 1 tab BID PRN (Patient taking differently: Take 2 tablets by mouth 2 times daily) thin (NO BRAND SPECIFIED) lancets Use with lanceting device. To accompany: Blood Glucose Monitor Brands: per insurance. 100 each 0 torsemide (DEMADEX) 20 MG tablet Take 30 mg by mouth daily Vitamin D3 (CHOLECALCIFEROL) 25 mcg (1000 units) tablet Take 25 mcg by mouth daily insulin pen needle (31G X 6 MM) 31G X 6 MM miscellaneous Use new pen needle for each autoinjection.90 each 1 DISCHARGE PLAN: Follow up labs: No labs orders/due Medical Follow Up: Follow up with primary care provider in 1-2 weeks Follow up with specialist sleep medicine, bariatric clinic, general surgery, PM&R [facility] scheduled appointments: Discharge Services: Home Care: Occupational Therapy, Physical Therapy, Registered Nurse, Home Health Aide and Business Support Coordinator Discharge Instructions: Monitor blood glucose monitoring 4 times a day. Keep a record and bring it to your next primary provider visit. Continue to follow your diet: no added salt, low potassium, 2000 ml fluid restriction. Weigh yourself daily in the morning and keep a record. Call your primary clinic: a) if you are moreshort of breath, or b) if your weight changes more than 3 pounds in one day or more than 5 pounds in one week. Notify your PCP if you have a fever greater than 100.5 degrees. Discharge patient to home with current medications and treatments Discharge Home with Home care as above - Nursing call in 30 days supply of needed meds to pharmacy of choice upon discharge - please send home with original of these discharge instructions and copy for chart. Electronically signed: Yoav Coleman APRN CNP Department [facility] 08/08/2022 documented in this encounter Progress Notes * Yoav Coleman APRN CNP - 08/08/2022 11:30 AM CDT [facility] DISCHARGE SUMMARY PATIENT'S NAME: Gale Munson DATE OF : 1975 Place [facility] took [facility] [[id number]] PRIMARY CARE PROVIDER AND CLINIC RESPONSIBLE AFTER TRANSFER: Non-G Provider Transferring providers: Yoav Coleman APRN CNP, Nettie Santiago MD Recent Hospitalization/ED: [facility] stay 12/21/21 to 12/29/21 followed by TCU stay from 12/29/21 to 02/08/22. Date of SNF Admission: December 29, 2021 Date of SNF (anticipated) Discharge: August 12, 2022 Discharged to: new assisted living for patient [facility] Cognitive Scores: BIMS: 1515 Physical Function: ambulatory with walker DME: Hospital Bed and Shower chair CODE STATUS/ADVANCE DIRECTIVES DISCUSSION: Full Code ALLERGIES: Penicillins NURSING FACILITY COURSE By chart review, presented to the emergency department for evaluation of left knee pain after a fall, moved from [place] to [place] recently and had run out of medications, did not have insurance. ??Blood pressure was elevated 234/109, right knee x-ray showed minimal patellofemoral osteoarthritis without acute fracture, effusion and with diffuse demineralization. ??X-ray of the pelvis and hips showed mild to moderate degenerative changes, joint space narrowing of both hips, no evidence of fracture, advanced arterial calcification unusual for age and diffuse demineralization. ??CTA of the lower extremities concerning for focal dissection, atherosclerosis, diffuse subcutaneous edema. ??Echo with moderate left ventricular hypertrophy, normal LV size and systolic function, EF 60 to 65%. ??Diastolic Doppler suggested increased left ventricular filling pressure, moderate left atrial enlargement and moderate mitral annular calcification, mild mitral regurgitation with possible stenosis and elevated RA pressure. ??A1c 7.8, hemoglobin 12.9. ??He was started on hydralazine, lisinopril, amlodipine, chlorthalidone for hypertension. ??Resumed insulin 20 units at at bedtime plus sliding scale. ??Started on gabapentin for leg and foot pain, lymphedema therapy. ??Psychiatry recommended sertraline. ??He was discharged to TCU for physical rehab. ??Rehospitalized 01/18-01/19 for bradycardia, hyperkalemia. ??BMP showed potassium 5.7, sodium 132. ??EKG with sinus arrhythmia, first-degree AV block,right bundle branch block. ??Treated with KayexalateAnnkelma with chlorthalidone called. ??He was discharged back to TCU with 14-day Zio patch. ??On 01/30 he gained 25 pounds in 1 day. ??Restarted on chlorthalidone. ??Transitioned to??long-term care with plans to discharge to community or more independent living setting once insurance is approved. Resumed toresmide and started fluid restriction after weight gain with good response. Seen by sleep medicine today and will follow-up with sleep study. He was seen by vascular surgery in March, no procedures recommended, continue ASA. He was referred to PM&R for long COVID symptoms, bariatric medicine, dietitian, general surgery for medical weight loss, sleep medicine and pain clinic. Summary of nursing facility stay: (F45.42) Pain disorder associated with psychological factors and medical condition (primary encounter diagnosis) (M79.604, M79.605) Bilateral lower extremity pain (M25.552) Hip pain, left (I73.9) PAD (peripheral artery disease) (H) (Z89.421) S/P amputation of lesser toe, right (H) Comment: Chronic pain in BLE, R>L with neuropathy. Has tried gabapentin, lyrica without improvements. [facility] [place] most effective. Plan: [facility] [place] 5-325 TID. Continue tylenol. Monitor pain, nonpharm interventions per nursing. Follow-up with pain clinic per their recommendations (U09.9) [facility] Comment: chronic, with deconditioning and exacerbation of chronic illnesses since his Dec hospitalization Plan: follow-up with PM&R [facility] BEL[facility] clinic per recommendations. (E11.40, Z79.4) Type 2 diabetes mellitus with diabetic neuropathy, with long- term current use of insulin (H) Comment: chronic, with improved A1C in LTC. Lab Results Component Value Date A1C 7.3 06/17/2022 A1C 7.8 12/21/2021 A1C 6.9 11/18/2008 A1C 9.0 10/21/2008 Plan: continue Lantus 19 U daily at HS, metformin 500 mg BID, victoza 1.8 mg sc daily, ACHS BG monitoring. Pen needles, glucometer supplies ordered. (I50.32) Chronic heart failure with preserved ejection fraction (H) (I10) Primary hypertension (I89.0) Lymphedema Comment: Chronic edema since severe COVID infection now >1 year ago. Much improved with torsemide, chlorthalidone, down almost 50 lbs. Still some edema mainly in his feet. Discussed with therapies, not recommending compression stockings and have re-ordered new compression wraps. Plan: Continue amlodipine 10 mg daily, chlorthalidone 25 mg daily, hydralazine 100 mg TID, doxazosin 1 mg daily, torsemide 30 mg daily, compression, monitor weights, exam. Home BP cuff RXd. (E66.01) Morbid obesity (H) Comment: chronic, with desired weight loss in facility. On Victoza per general surgery. Plan: Continue victoza, follow-up with bariatric medicine, surgery per recommendations. Monitor weights. (N18.2) CKD (chronic kidney disease) stage 2, GFR 60-89 ml/min Comment: Chronic, more recent Cr baseline 1.1-1.2. On low K+ diet due to history of hyperkalemia onchlorthalidone Lab Results Component Value Date CR 1.24 06/27/2022 Plan: Avoid additional nephrotoxins. Renally dose medications as appropriate. Monitor BMP. Low K+ diet (F33.9) Recurrent major depressive disorder, remission status unspecified (H) (F41.9) Anxiety (F51.02) Adjustment insomnia Comment: Chronic, with ongoing symptoms. Following with [facility], psychiatry. Likely some component of JOHN to insomnia and has been referred to sleep medicine. Plan: follow-up with acp, psychiatry per recommendations. Monitor mood, behavior. Follow-up with sleep med for sleep study per recommendations. (E55.9) Vitamin D deficiency Comment: chronic, started on Vit D Plan: Vit D 25 mcg daily (K59.01) Slow transit constipation Comment: chronic, stable Plan: continue miralax, senna s BID (R00.1) Sinus bradycardia (I45.10) RBBB (I51.7) Left ventricular hypertrophy Comment: chornic, stable. Plan: monitor cardiac status, BB intentionally not prescribed, continue antihypertensives as above.Follow-up with cardiology per recommendations. Discharge Medications: MED REC REQUIRED Post Medication Reconciliation Status: Medication reconciliation previously completed during another office visit Current Outpatient Medications Medication Sig Dispense Refill ??? acetaminophen (TYLENOL) 325 MG tablet Take 650 mg by mouth 3 times daily as needed for mild pain ??? amLODIPine (NORVASC) 5 MG tablet Take 2 tablets (10 mg) by mouth At Bedtime ??? aspirin (ASA) 81 MG chewable tablet Take 81 mg by mouth daily ??? chlorthalidone (HYGROTON) 25 MG tablet Take 1 tablet (25 mg) by mouth daily ??? cyanocobalamin (VITAMIN B-12) 1000 MCG tablet Take 1,000 mcg by mouth twice a week ??? doxazosin (CARDURA) 1 MG tablet Take 1 mg by mouth At Bedtime ??? hydrALAZINE (APRESOLINE) 100 MG tablet Take 1 tablet (100 mg) by mouth 3 times daily ??? HYDROcodone-acetaminophen (NORCO) 5-325 MG tablet TAKE 1 TABLET BY MOUTH THREE TIMES DAILY CONTROLLED SUBSTANCE-DOUBLE LOCK STORAGE 90 tablet 0 ??? insulin glargine (LANTUS PEN) 100 UNIT/ML pen Inject 19 Units Subcutaneous At Bedtime Hold for blood glucose less than 120 ??? insulin pen needle (31G X 6 MM) 31G X 6 MM miscellaneous Use new pen needle for each autoinjection. 90 each 1 ??? liraglutide (VICTOZA) 18 MG/3ML solution Start 1.8 mg injected subcuteanously once daily 15 mL 3 ??? metFORMIN (GLUCOPHAGE) 500 MG tablet Take 1 tablet (500 mg) by mouth 2 times daily (with meals) ??? nicotine (NICORETTE) [address] 2 mg inside cheek every hour as needed for smoking cessation ??? polyethylene glycol (MIRALAX) 17 GM/Dose powder Take 17 g by mouth daily (Patient taking differently: Take 17 g by mouth 2 times daily) 510 g ??? rosuvastatin (CRESTOR) 10 MG tablet Take 1 tablet (10 mg) by mouth daily ??? SENNA-docusate sodium (SENNA S) 8.6-50 MG tablet Take 1 tablet by mouth At Bedtime And 1 tab BID PRN (Patient taking differently: Take 2 tablets by mouth 2 times daily) ??? torsemide (DEMADEX) 20 MG tablet Take 30 mg by mouth daily ??? Vitamin D3 (CHOLECALCIFEROL) 25 mcg (1000 units) tablet Take 25 mcg by mouth daily Controlled medications: Medication [facility] [place] 90 tabs electronically prescribed to [facility] Past Medical History: Past Medical History: Diagnosis Date ??? Anxiety ??? Depressive disorder ??? Diabetes (H) ??? Hypertension ??? Neuromuscular disorder (H) Physical Exam: Vitals: BP 135/75 Pulse 67 Temp 97.4 ??F (36.3 ??C) Resp 18 Ht 1.778 m (5' 10) Wt 145.6 kg (321 lb) SpO2 96% BMI 46.06 kg/m?? BMI: Body mass index is 46.06 kg/m??. GENERAL APPEARANCE: Alert, in no distress, morbidly obese RESP: respiratory effort and palpation of chest normal, lungs clear to auscultation , no respiratory distress CV: Palpation and auscultation of heart done , regular rate and rhythm, no murmur, rub, or gallop, peripheral edema 1+ in ble ABDOMEN: normal bowel sounds, soft, nontender, no hepatosplenomegaly or other masses M/S: Gait and station abnormal ambulatory with walker SKIN: Inspection of skin and subcutaneous tissue baseline, Palpation of skin and subcutaneous tissue baseline NEURO: Cranial nerves 2-12 are normal tested and grossly at patient's baseline PSYCH: oriented X 3, affect and mood normal SNF labs: Labs done in SNF are in [facility]. Please refer to them using [employer] Everywhere. and Recent labs in [facility] reviewed by me today. DISCHARGE PLAN: ?? Follow up labs: No labs orders/due ?? Medical Follow Up: Follow up with primary care provider in 1-2 weeks Follow up with specialist sleep medicine, bariatric clinic, general surgery, PM&R ?? Current [facility] scheduled appointments: ?? Discharge Services: Home Care: Occupational Therapy, Physical Therapy, Registered Nurse, Home Health Aide and Business Support Coordinator ?? Discharge Instructions: ?? Monitor blood glucose monitoring 4 times a day. Keep a record and bring it to your next primary provider visit. ?? Continue to follow your diet: no added salt, low potassium, 2000 ml fluid restriction. ?? Weigh yourself daily in the morning and keep a record. Call your primary clinic: a) if you are more short of breath, or b) if your weight changes more than 3 pounds in one day or more than 5 pounds in one week. ?? Notify your PCP if you have a fever greater than 100.5 degrees. TOTAL DISCHARGE TIME: Greater than 30 minutes Electronically signed by: Yoav Coleman APRN CNP Home care Face to Face documentation done in [facility] attached to Home care orders for [facility] Face to Face and Medical Necessity Statement for DME Provider visit Patient: Gale Munson Gender: male Date of : 1975 [facility] Demographics: [id number] [address] (home) Social Security Number: [id number] Primary Care Provider: Yoav Coleman Insurance: Payor: [employer]AS[employer] / Plan: [facility] PMAP / Product Type: HMO / HPI: Gale Munson is a 47 year old (1975), who is being seen today for a face to face provider visit at [facility] [[id number]]. Medical necessity statement for DME included. This patient requires the following: DME Ordered and Medical Necessity Statement Hospital bed: fully electronic with 2 side rails The patient has medical conditions of pain disorder with BLE pain, long COVID,CHF, morbid obesity and lymphedema which require an electronic bed for positioning not feasible in an ordinary bed for anestimated 99 years. The patient requires an electric bed for positioning not possible in a standardbed for alleviation of chronic pain. He also requires HOB elevation 30* or more for most of the time due to CHF. The patient requires a bed with capacity for varying height due to immobility related to pain and lower leg edema to permit transfers in and out of bed to/from standing position. He alsorequires frequent or immediate changes in position due to pain, edema, CHF, and respiratory symptoms from long COVID. The patient requires a bariatric bed due to large body habitus and relatively short stature with weight 321 lbs to enable safe bed mobility for repositioning an. The patient has medical conditions of pain disorer, long COVID, CHF, morbid obesity and lymphedema which require a bariatric shower chair. The patient's medical conditions make it difficult to stand for prolonged periods and on uneven surfaces due to difficulties with balance and proprioception, pain and weakness. A shower chair will enable patient to improve participation in mrADLs. The patient is willing and able to use a shower chair and his home can accommodate a bariatric shower chair. Pt needing above DME with expected length of need of 99 years due to medical necessity associated with following diagnosis: Pain disorder associated with psychological factors and medical condition Bilateral lower extremity pain PAD (peripheral artery disease) (H) S/P amputation of lesser toe, right (H) Long COVID Type 2 diabetes mellitus with diabetic neuropathy, with long-term current use of insulin (H) Chronic heart failure with preserved ejection fraction (H) Lymphedema Morbid obesity (H) Past Medical History: has a past medical history of Anxiety, Depressive disorder, Diabetes (H), Hypertension, and Neuromuscular disorder (H). Review of Systems: As above Exam: Vitals: BP 135/75 Pulse 67 Temp 97.4 ??F (36.3 ??C) Resp 18 Ht 1.778 m (5' 10) Wt 145.6 kg (321 lb) SpO2 96% BMI 46.06 kg/m?? BMI: Body mass index is 46.06 kg/m??. As above Assessment/Plan: 1. Pain disorder associated with psychological factors and medical condition 2. Bilateral lower extremity pain 3. PAD (peripheral artery disease) (H) 4. S/P amputation of lesser toe, right (H) 5. Long COVID 6. Type 2 diabetes mellitus with diabetic neuropathy, with long-term current use of insulin (H) 7. Chronic heart failure with preserved ejection fraction (H) 8. Lymphedema 9. Morbid obesity (H) Orders: 1. Facility staff/TC to contact [employer] to get their order form for provider to fill out ELECTRONICALLY SIGNED BY BERNADETTE CERTIFIED PROVIDER: Yoav Coleman [place] [address] documented in this encounter Miscellaneous Notes * Addendum Note - Yoav Coleman APRN CNP - 08/08/2022 11:30 AM CDTAddended by: YOAV COLEMAN on: 08/08/2022 03:38 PM Modules accepted: Orders * Addendum Note - Yoav Coleman APRN CNP - 08/08/2022 11:30 AM CDTAddended by: YAOV COLEMAN on: 08/09/2022 11:09 AM Modules accepted: Orders documented in this encounter Plan of Treatment Upcoming Encounters Date Type Department Care Team (Late st Contact Info) Description 07/27/2023 10:00 AM CDT Virtual Visit [facility] [place] [address] [place] [address] Nasir Cunningham MD [address] [facility] [address] [place], [place] [id number] Scheduled Referrals Name Type Priority Associated Diagnoses Orde r Schedule Home Care Referral Referral Routine: Next available opening Pain disorder associated with psychological factors and medical condition Bilateral lower extremity pain PAD (peripheral artery disease) (H) S/P amputation of lesser toe, right (H) Long COVID Type 2 diabetes mellitus with diabetic neuropathy, with long-term current use of insulin (H) Chronic heart failure with preserved ejection fraction (H) Lymphedema Morbid obesity (H) CKD (chronic kidney disease) stage 2, GFR 60-89 ml/min Recurrent major depressive disorder, remission status unspecified (H) Vitamin D deficiency Adjustment insomnia Primary hypertension Slow transit constipation Hip pain, left Anxiety Sinus bradycardia RBBB Left ventricular hypertrophy Ordered: 08/08/2022 documented as of this encounter Visit Diagnoses Diagnosis Pain disorder associated with psychological factors and medical condition- Primary Bilateral lower extremity pain Hip pain, left Pain in joint, pelvic region and thigh PAD (peripheral artery disease) (H24) Unspecified disorders of arteries and arterioles S/P amputation of lesser toe, right (H24) Long COVID Type 2 diabetes mellitus with diabetic neuropathy, with long-term current use of insulin (H) Chronic heart failure with preserved ejection fraction (H) Primary hypertension Unspecified essential hypertension Lymphedema Other lymphedema Morbid obesity (H) Morbid obesity CKD (chronic kidney disease) stage 2, GFR 60-89 ml/min Chronic kidney disease, Stage II (mild) Recurrent major depressive disorder, remission status unspecified (H24) Anxiety Anxiety state, unspecified Vitamin D deficiency Unspecified vitamin D deficiency Adjustment insomnia Transient disorder of initiating or maintaining sleep Slow transit constipation Sinus bradycardia Other specified cardiac dysrhythmias RBBB Right bundle branch block Left ventricular hypertrophy Cardiomegaly documented in this encounter Additional Health Concerns Assessment Noted Time PHQ-9 Depression Total Score: 19 023 2:47 PM 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 documented as of this encounter Care Teams Computer Networking Instructor Relationship Specialty Start Date End Date Rizor, Yoav, HOT STICK WORKER BOOM PUMP OPERATOR [address] [place] [address] PCP - General Geriatric Medicine 02/10/22 08/15/22 Center(Fgs), [facility] [address] [place] [phone] 02/10/22 08/15/22 [place] [address] [place] [phone] Physical Medicine and Rehabilitation 02/21/22 Samuel Rahman MD [address] [place] [address] [address] [place] [address] Assigned Heart and Vascular Provider 04/02/22 Saba Pan MD 9 [facility] 3rd [place] [address] Assigned Neuroscience Provider 06/11/22 01/06/23 Bolivar Tierney DPM [address] [place] [address] [address] [place] [address] Assigned Surgical Provider 07/09/22 documented as of this encounter
--- OUTSIDE RECORDS SUMMARY | 2023-05-23 20:59 | XMS_ITS | Encounter Summary ---
Author Name Unknown Organization [facility] Address [address] [place] [address] Care Team Providers Care Building Official Name Role Phone Jennie Coleman APRN BRIDGE/STRUCTURE INSPECTION TEAM LEADER Primary Care Provider + [phone] [place](Fgs), [facility] Care Unavailable Saba Pan MD Unavailable [phone] aSmuel Rahman MD Unavailable [phone] Saba Pan MD Unavailable [phone] Bolivar Tierney DPM Unavailable [phone] Reason for Visit * Reason Comments Medication Refill Encounter Details Date Type Department Care Team (Late st Contact Info) Description 07/12/2022 Refill [facility] [address] [place] [phone] Jennie Coleman APRN BRIDGE/STRUCTURE INSPECTION TEAM LEADER [address] [place] [address] Medication Refill Social History Tobacco Use Types [...] Description 07/27/2023 10:00 AM CDT Virtual Visit 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 documented as of this encounter Care Teams Building Official Relationship Specialty Start Date End Date Jennie Coleman APRN BRIDGE/STRUCTURE INSPECTION TEAM LEADER [address] [place] [address] PCP - General Geriatric Medicine 02/10/22 08/15/22 [place](Fgs), [facility] [id number] [place] [phone] 02/10/22 08/15/22 Saba Pan MD [address] [place] [phone] Physical Medicine and Rehabilitation 02/21/22 Samuel Rahman MD [address] [facility] [address] [place] [address] Assigned Heart and Vascular Provider 04/02/22 Saba Pan MD [address] [place] [address] [address] [place] [address] Assigned Neuroscience Provider 06/11/22 01/06/23 Bolivar Tierney DPM [address] [facility] [address] [place] [address] Assigned Surgical Provider 07/09/22 documented as of this encounter
--- OUTSIDE RECORDS SUMMARY | 2023-05-23 20:59 | XMS_ITS | Encounter Summary ---
Author Name Unknown Organization [facility] Address [address] [place] [address] Care Team Providers Care Staff Development Educator Name Role Phone Jennie Coleman APRN, CNP Primary Care Provider + [phone] [place](Fgs) [facility] Care Unavailable Saba Pan MD Unavailable [phone] Samuel Rahman MD Unavailable [phone] Saba Pan MD Unavailable [phone] Reason for Visit * Reason Comments Diabetes Type 2 DM with PN wi th foot pain. 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 Sleep difficulties Morbid obesity (H) Type 2 diabetes mellitus with peripheral neuropathy (H) Generalized anxiety disorder Major depressive disorder, recurrent episode, moderate (H) Saba Pan MD [address] [facility] 3rd [place] [address] Bolivar Tierney DPM [address] [facility] [address] [place] [address] Referral ID Status Reason Start Date Expiration Date V isits Requested Visits Authorized [id number] Pending Review 06/07/2022 06/07/2023 1 1 Encounter Details Date Type Department Care Team (Late st Contact Info) Description 07/04/2022 9:00 AM CDT Office Visit [facility] [address] [facility] [address] [place] [phone] Saba Pan MD [address] [facility] 3rd [place] [address] Bolivar Tierney DPM [address] [facility] [address] [place] [address] Onychomycosis (Primary Dx); Post-COVID chronic anxiety; Post-COVID chronic decreased mobility and endurance; Post-COVID chronic muscle pain; Sleep difficulties; Morbid obesity (H); Type 2 diabetes mellitus with peripheral neuropathy (H); Generalized anxiety disorder; Major depressive disorder, recurrent episode, moderate (H) Social History Tobacco Use Types Packs/Day Years Used Date Smoking Tobacco: Former Smokeless Tobacco: Never Tobacco Cessation:Counseling Given: No Comments:Smoked about 1/2 ppd for maybe 5 [...] Taken Comments Blood Pressure - - Pulse 87 07/04/2022 8:50 AM CDT Temperature - - Respiratory Rate - - Oxygen Saturation 97% 07/04/2022 8:50 AM CDT Inhaled Oxygen Concentration - - Weight 148.3 kg (327 lb) 07/04/2022 8:50 AM CDT Height 180.3 cm (5' 11) 07/04/2022 8:50 AM CDT Body Mass Index 45.61 07/04/2022 8:50 AM CDT documented in this encounter Patient Instructions * Patient Instructions* Dhiraj Simmscuca Wagner, LUIS - 07/04/2022 9:00 AM CDT What are Prescription Custom Orthotics? Custom orthotics are specially-made devices designed to support and comfort your feet. Prescriptionorthotics are crafted for you and no one else. They match the contours of your feet precisely and are designed for the way you move. Orthotics are only manufactured after a animal handler has conducted acomplete evaluation of your feet, ankles, and legs, so the orthotic can accommodate your unique foot structure and pathology. Prescription orthotics are divided into two categories: Functional orthotics are designed to control abnormal motion. They may be used to treat foot pain caused by abnormal motion; they can also be used to treat injuries such as monk splints or tendinitis. Functional orthotics are usually crafted of a semi-rigid material such as plastic or graphite. Accommodative orthotics are softer and meant to provide additional cushioning and support. They canbe used to treat diabetic foot ulcers, painful calluses on the bottom of the foot, and other uncomfortable conditions. Podiatrists use orthotics to treat foot problems such as plantar fasciitis, bursitis, tendinitis, diabetic foot ulcers, and foot, ankle, and heel pain. Clinical research studies have shown that animal handler-prescribed foot orthotics decrease foot pain and improve function. Orthotics typically cost more than shoe inserts purchased in a retail store, but the additional cost is usually well worth it. Unlike shoe inserts, orthotics are molded to fit each individual foot, so you can be sure that your orthotics fit and do what they're supposed to do. Prescription orthoticsare also made of top- notch materials and last many years when cared for properly. Insurance often he lps pay for prescription orthotics. What are Shoe Inserts? You've seen them at the grocery store and at the mall. You've probably even seen them on TV and online. Shoe inserts are any kind of non-prescription foot support designed to be worn inside a shoe. Pre-packaged, mass produced, arch supports are shoe inserts. So are the ???custom-made?? insoles andfoot supports that you can order online or at retail stores. Unless the device has been prescribed by a doctor and crafted for your specific foot, it's a shoe insert, not a custom orthotic device--despite what the ads might say. Shoe inserts can be very helpful for a variety of foot ailments, including flat arches and foot andleg pain. They can cushion your feet, provide comfort, and support your arches, but they can't correct biomechanical foot problems or cure long-standing foot issues. The most common types of shoe inserts are: Arch supports: Some people have high arches. Others have low arches or flat feet. Arch supports generally have a ???bumped-up?? appearance and are designed to support the foot's natural arch. Insoles: Insoles slip into your shoe to provide extra cushioning and support. Insoles are often made of gel, foam, or plastic. Heel liners: Heel liners, sometimes called heel pads or heel cups, provide extra cushioning in the heel region. They may be especially useful for patients who have foot pain caused by age-related thinning of the heels' natural fat pads. Foot cushions: Do your shoes rub against your heel or your toes? Foot cushions come in many different shapes and sizes and can be used as a barrier between you and your shoe. Choosing an Yxtr-qfr-Ltmlfvr Shoe Insert Selecting a shoe insert from the wide variety of devices on the market can be overwhelming. Here are some animal handler-tested tips to help you find the insert that best meets your needs: Consider your health. Do you have diabetes? Problems with circulation? An wibe-jen-kkcgoqr insert may not be your best bet. Diabetes and poor circulation increase your risk of foot ulcers and infections, so schedule an appointment with a animal handler. He or she can help you select a solution that won't cause additional health problems. Think about the purpose. Are you planning to run a marathon, or do you just need a little arch support in your work shoes? Look for a product that fits your planned level of activity. Bring your shoes. For the insert to be effective, it has to fit into your shoes. So bring your sneakers, dress shoes, or work boots--whatever you plan to wear with your insert. Look for an insert that will fit the contours of your shoe. Try them on. If all possible, slip the insert into your shoe and try it out. Walk around a little. How does it feel? Don't assume that feelings of pressure will go away with continued wear. (If you can't try the inserts at the store, ask about the store's return policy and hold on to your receipt.) Please call one of the [facility] locations below to schedule an appointment. If you received a prescription please bring it with you to your appointment. Some locations are limited to what they carry. Office Locations [facility] [address] [place] [address] Home Medical Equipment, [address] Orthotics and Prosthetics, [address] [facility] [place] [address] [place] [address] [facility] [address] [place] [address] [facility] [address] [facility] [address] [address] [place] [address] [facility] Specialty Care [place] [address] [address] [place] [address] [facility] [address] [facility] [address] [place] [address] [place] [address] [facility] [place] [address] WEARING YOUR CUSTOM FOOT ORTHOTICS Most insurance plans cover one pair of orthotics per year. You must check with your insurance plan to see what your payment responsibility will be. Please call your insurance company by calling the number on the back of your insurance card. Orthotic's are non-refundable and non-returnable. Orthotics are made of various designs. Some orthotics are covered with material that extends beyondyour toes. If your orthotic is of this design, you will likely need to trim the toe end to get a proper fit. The insole from your shoe can be used as a template. Simply overlay the shoe insert on topof the custom orthotic. Align the heel end while tracing the length of the insert onto the custom orthotic. Use a large scissor to trim the toe end until you get a proper fit in the shoe. The orthotic needs to be pushed as far back in the shoe as possible. The heel portion should not ride forward so as not to irritate your heel. Orthotics are designed to work with socks. Excessive perspiration will shorten the life span of theorthotics. Remove the orthotic from the shoe frequently for proper drying. The break-in period lasts for weeks. People new to orthotics will likely experience new aches and pains. The orthotic is forcing your foot into a new position. Arch, foot and leg muscle aches and fatigue are common during these weeks. Minor discomfort can be considered normal break in phenomenon. Start wearing your orthotic around your home your first day. Limited activity for one to two hours isrecommended. You can increase one or two additional hours each day provided the aches and pains aresubsiding. The degree of discomfort, fatigue and problems will dictate the speed of break in. You may require multiple weeks to work up to daytime babysitter use. Do not continue wearing your orthotics if they are creating problems such as blisters or sores. Do not hesitate to call the clinic to speak with a nurse regarding orthotic break in, fit, trimming, etc. You may also need to see the doctor if the orthotics are simply not working out. Adjustments are sometimes made to improve orthotic function. Orthotics will only work in certain styles and types of shoes. Orthotics rarely work in dress shoes. Slip-ons, clogs, sandals and heels are particularly troublesome. Specially designed orthotics may be necessary for these types of shoes. Your custom orthotic was designed for activities that requireappropriate walking or running shoes. Lace up athletic shoes, walking shoes or work boots should work appropriately. You may need a wider or longer shoe. Shoes with a removable drop wire aliner or insert work best. In general, you want to remove an insert from the shoe before placing the orthotic into the shoe. Shoes without a removable liner may not work as well. When purchasing new shoes, bring your orthotics along to get a proper fit. Shop at stores that are familiar with orthotics. Frequent washing of the orthotic may shorten the life span of the top cover. The top cover can be replaced but will generally last one to five years depending on use and foot perspiration. documented in this encounter Progress Notes * Bolivar Tierney DPM - 07/04/2022 9:00 AM CDT Images from the original note were not included. FOOT AND ANKLE SURGERY/PODIATRY CONSULT NOTE ASSESSMENT: Onychomycosis Laurae DM2 TREATMENT: -I discussed with the patient that overall his feet are in good condition, no areas of concern noted today. No areas of skin irritation or skin breakdown identified. -We discussed the importance of good glycemic control. -I have referred him to [facility] for diabetic shoes and inserts. -Debrided nails greater than 6 in length and thickness. Dispensed a list of routine foot care providers in the area. -Patient's questions invited and answered. He was encouraged to call my office with any further questions or concerns. Bolivar Tierney DPM [facility] Podiatry/Foot & Ankle Surgery HPI: I was asked to see Gale Munson today by Dr. Pan for diabetic foot exam. Patient states that he would like new diabetic shoes and inserts if possible. He admits to intermittent foot pain bilateral feet which appears to be related to his diabetic neuropathic symptoms. He request nail trim today. Past Medical History: Diagnosis Date ??? Anxiety ??? Depressive disorder ??? Diabetes (H) ??? Hypertension ??? Neuromuscular disorder (H) Social History Socioeconomic History ??? Marital status: Single Spouse name: Not on file ??? Number of children: Not on file ??? Years of education: Not on file ??? Highest education level: Not on file Occupational History ??? Not on file Tobacco Use ??? Smoking status: Former ??? Smokeless tobacco: Never ??? Tobacco comments: Smoked about 1/2 ppd for maybe 5 years quitting over 10 years ago (as of 2022) Substance and Sexual Activity ??? Alcohol use: Not Currently ??? Drug use: Not Currently ??? Sexual activity: Not Currently Other Topics Concern ??? Not on file Social History Narrative ??? Not on file Social Determinants of Health Financial Resource Strain: Not on file Food Insecurity: Not on file Transportation Needs: Not on file Physical Activity: Not on file Stress: Not on file Social Connections: Not on file Intimate Partner Violence: Not on file Housing Stability: Not on file Allergies Allergen Reactions ??? Penicillins Anaphylaxis MEDICATIONS: Current Outpatient Medications Medication ??? acetaminophen (TYLENOL) 325 MG tablet ??? amLODIPine (NORVASC) 5 MG tablet ??? aspirin (ASA) 81 MG chewable tablet ??? chlorthalidone (HYGROTON) 25 MG tablet ??? cloNIDine (CATAPRES) 0.1 MG tablet ??? cyanocobalamin (VITAMIN B-12) 1000 MCG tablet ??? doxazosin (CARDURA) 1 MG tablet ??? hydrALAZINE (APRESOLINE) 100 MG tablet ??? HYDROcodone-acetaminophen (NORCO) 5-325 MG tablet ??? insulin glargine (LANTUS PEN) 100 UNIT/ML pen ??? insulin pen needle (31G X 6 MM) 31G X 6 MM miscellaneous ??? liraglutide (VICTOZA) 18 MG/3ML solution ??? melatonin 3 MG tablet ??? metFORMIN (GLUCOPHAGE) 500 MG tablet ??? nicotine (NICORETTE) 2 MG gum ??? polyethylene glycol (MIRALAX) 17 GM/Dose powder ??? rosuvastatin (CRESTOR) 10 MG tablet ??? SENNA-docusate sodium (SENNA S) 8.6-50 MG tablet ??? torsemide (DEMADEX) 20 MG tablet ??? zolpidem (AMBIEN) 10 MG tablet No current facility-administered medications for this visit. Family History Problem Relation Age of Onset ??? Alcoholism Father ??? Sleep Apnea Maternal Grandfather ??? Sleep Apnea Cousin Review of Systems - 10 point Review of Systems is negative except for foot pain which is noted in HPI. OBJECTIVE: Appearance: alert, well appearing, and in no distress. VITAL SIGNS: Pulse 87 Ht 1.803 m (5' 11) Wt 148.3 kg (327 lb) SpO2 97% BMI 45.61 kg/m?? General appearance: Patient is alert and fully cooperative with history & exam. No sign of distress is noted during the visit. Psychiatric: Affect is pleasant & appropriate. Patient appears motivated to improve health. Respiratory: Breathing is regular & unlabored while sitting. HEENT: Hearing is intact to spoken word. Speech is clear. No gross evidence of visual impairment that would impact ambulation. Vascular: Dorsalis pedis palpable. Dermatologic: Nails greater than 6 elongated, thick, yellow with subungal debris. Trophic changes noted including diminished hair growth and shiny skin. Neurologic: Diminished light touch bilateral feet. 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 documented in this encounter Plan of Treatment Upcoming Encounters Date Type Department Care Team (Late st Contact Info) Description 07/27/2023 10:00 AM CDT Virtual Visit [facility] [address] [phone] Nasir Cunningham MD [address] [place] [address] documented as of this encounter Procedures Procedure Name Priority Date/Time Associated Diagnosis Comments CA DEBRIDEMENT OF NAILS, 6 OR MORE Routine 07/04/2022 9:05 AM CDT Onychomycosis documented in this encounter Visit Diagnoses Diagnosis Onychomycosis- Primary Dermatophytosis of nail 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 Sleep difficulties Sleep disturbance, unspecified Morbid obesity (H) Morbid obesity Type 2 diabetes mellitus with peripheral neuropathy (H) Generalized anxiety disorder Major depressive disorder, recurrent episode, moderate (H) Major depressive disorder, recurrent episode, moderate documented in this encounter Additional Health Concerns Assessment Noted Time PHQ-9 Depression Total Score: 19 023 2:47 PM 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 CAPTAIN documented as of this encounter Care Teams Staff Development Educator Relationship Specialty Start Date End Date Jennie Coleman APRN PARIMUTUEL TICKET CASHIER [address] [place] [address] PCP - General Geriatric Medicine 02/10/22 08/15/22 Center(Fgs), [facility] [address] [place] [phone] 02/10/22 08/15/22 [place] [address] [place] [phone] Physical Medicine and Rehabilitation 02/21/22 Samuel Rahman MD [address] [facility] [address] [place], [place] [phone] Assigned Heart and Vascular Provider 04/02/22 Saba Pan MD 9 [facility] 3rd Floor [place], [place] [phone] Assigned Neuroscience Provider 06/11/22 01/06/23 documented as of this encounter
--- OUTSIDE RECORDS SUMMARY | 2023-05-23 20:59 | XMS_ITS | Encounter Summary ---
Author Name Unknown Organization [facility] Address [address] [place] [address] Care Team Providers Care Traffic Coordinator Name Role Phone Jared Jennie TADEO CNP Primary Care Provider + [phone] [place] Unavailable Saba Pan MD Unavailable [phone] Samuel Rahman MD Unavailable [phone] Saba Pan MD Unavailable [phone] Encounter Details Date Type Department Care Team (Latest Contact Info) Description 06/24/2022 Travel Social History Tobacco Use Types Packs/Day [...] suspected to have Coronavirus/COVID-19? 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 documented as of this encounter Plan of Treatment Upcoming Encounters Date Type Department Care Team (Late st Contact Info) Description 07/27/2023 10:00 AM CDT Virtual Visit [facility] [address] [place] [phone] Nasir Cunningham MD [address]45 [facility] 200 [place], [place] [phone] documented as of this encounter Visit Diagnoses Not on filedocumented in this encounter Additional Health Concerns Assessment Noted Time PHQ-9 Depression Total Score: 19 023 2:47 PM 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 documented as of this encounter Care Teams Traffic Coordinator Relationship Specialty Start Date End Date Jennie Coleman APRN ORACLE EBS CONSULTANT [address] [place] [address] PCP - General Geriatric Medicine 02/10/22 08/15/22 [place](Fgs)[facility] [address] [place] [phone] 02/10/22 08/15/22 [place] [address] [place] [phone] Physical Medicine and Rehabilitation 02/21/22 Samuel Rahman MD [address] [facility] [address] [place] [address] Assigned Heart and Vascular Provider 04/02/22 Saba Pan MD 9 [facility] 3rd [place] [address] Assigned Neuroscience Provider 06/11/22 01/06/23 documented as of this encounter
--- OUTSIDE RECORDS SUMMARY | 2023-05-23 20:59 | XMS_ITS | Encounter Summary ---
Author Name Unknown Organization [facility] Address [address] [place] [address] Care Team Providers Care Ems Manager Name Role Phone Jared Jennie TADEO CNP Primary Care Provider + [phone] [facility]), [facility] Care Unavailable Saba Pan MD Unavailable [phone] Samuel Rahman MD Unavailable [phone] Saba Pan MD Unavailable [phone] Bolivar Tierney DPM Unavailable [phone] Encounter Details Date Type Department Care Team (Late st Contact Info) Description 08/09/2022 Telephone [facility] Surgery Clinic and Bariatrics Care [address] [place] [address] Lexy Mcgraw, RD 420 [facility] 84 [place] [address] Social History Tobacco Use Types Packs/Day Years [...] Recorded In the last 10 days, have dustin u been in contact with someone who was confirmed or suspected to have Coronavirus/COVID-19? Unable to assess 08/08/2022 7:44 AM CDT documented as of this encounter Miscellaneous Notes * Telephone Encounter - Lexy Mcgraw RD - 08/09/2022 10:04 AM CDT Attempts made to contact patient in regards to video visit that was scheduled for today with this grant writer at 9:30 am. Patient did not link onto video visit nor answer the phone with attempts made, therefore left patient a detailed message including call center contact information to call and reschedule this appointment at his earliest convenience. documented in this encounter Plan of Treatment Upcoming Encounters Date Type Department Care Team (Late st Contact Info) Description 07/27/2023 10:00 AM CDT Virtual Visit [facility] Surgery Clinic and Bariatrics Care [address] [address] Nasir Cunningham MD [address] [place] [address] documented as of this encounter Visit Diagnoses Not on filedocumented in this encounter Additional Health Concerns Assessment Noted Time PHQ-9 Depression Total Score: 19 023 2:47 PM PROJECT FINANCE ANALYST documented as of this encounter Care Teams Ems Manager Relationship Specialty Start Date End Date Jennie Coleman APRN CNP [address] [place] [address] PCP - General Geriatric Medicine 02/10/22 08/15/22 [place](Fgs)[address] [phone] 02/10/22 08/15/22 Saba Pan MD [address] [place] [phone] Physical Medicine and Rehabilitation 02/21/22 Samuel Rahman MD [address] [place] [address] [address] [address] Assigned Heart and Vascular Provider 04/02/22 Saba Pan MD [address] [place] [address] 3[address] [place] [address] Assigned Neuroscience Provider 06/11/22 01/06/23 Bolivar Tierney DPM [address] [place] [address] Assigned Surgical Provider 07/09/22 documented as of this encounter
--- OUTSIDE RECORDS SUMMARY | 2023-05-23 20:59 | XMS_ITS | Encounter Summary ---
Author Name Unknown Organization [facility] Address [address] [place] [address] Care Team Providers Care Drying Machine Receiver Name Role Phone Jared Jennie TADEO CNP Primary Care Provider + [phone] [place](Fgs) [facility] Care Unavailable Saba Pan MD Unavailable [phone] Samuel Rahman MD Unavailable [phone] Saba Pan MD Unavailable [phone] Reason for Visit * Reason Comments [facility] Regulatory Encounter Details Date Type Department Care Team (Late st Contact Info) Description 06/27/2022 8:00 AM CDT [facility] Visit [facility] Geriatrics [address] [place] [address] Nettie Santiago MD [address] [place] [address] Type 2 diabetes mellitus with diabetic neuropathy, with long-term current use of insulin (H) (Primary Dx); CKD (chronic kidney disease) stage 2, GFR 60-89 ml/min; Long COVID; Adjustment disorder with mixed anxiety and depressed mood; Lymphedema; Morbid obesity (H); PAD (peripheral artery disease) (H) Social [...] Sign Reading Time Taken Comments Blood Pressure 124/78 06/27/2022 7:36 AM CDT Pulse 72 06/27/2022 7:36 AM CDT Temperature 36.7 ??C (98.1 ??F) 06/27/2022 7:36 AM CD T Respiratory Rate 18 06/27/2022 7:36 AM CDT Oxygen Saturation 98% 06/27/2022 7:36 AM CDT Inhaled Oxygen Concentration - - Weight 149.9 kg (330 lb 6.4 oz) 06/27/2022 7:36 AM CDT Height 177.8 cm (5' 10) 06/27/2022 7:36 AM CDT Body Mass Index 47.41 06/27/2022 7:36 AM CDT documented in this encounter Progress Notes * Nettie Santiago MD - 06/27/2022 8:00 AM CDT Gale Munson is a 47 year old male seen June 27, 2022 at [facility] where he has resided for 6 months (admit to TCU 12/2021) seen for regulatory visit and to follow up chronic pain, HTN and anasarca. Pt is seen in his room sitting edge of bed. Has made quite an improvement in past few months. Much more upbeat Still has pain in LEs, much less edema No new concerns reported by nursing staff. . By chart review, pt had been living in [place] He was hospitalized there in March 2021 with COVID 19 infection, managed on BiPAP Records from [place] hospitalization not available, but he dischargedafter 11 days. Had continued symptoms of fatigue, generalized chronic pain, weakness, anxiety and depression. At some point pt returned to [place], and was hospitalized at [facility] in early December for failure to thrive, deconditioning, and poorly controlled DM2 and HTN He was not taking his medicationssecondary to loss of insurance. He has had multiple toe amputations that have impeded his balance and gait. He was seen by Psychiatry for depression and strted on sertraline. He discharged to TCU. Pt had an overnight hospital stay in early January for hyperkalemia and bradycardia. He was treatedwith Kayexelate, Lokelma and IVF. EKG showed first degree AV block and RBBB Returned to TCU, neededlymphedema therapy for 4+ LE edema When chlorthalidone and spironolactone were held he gained 25 lbs in one day; chlorthalidone was restarted Pt has been followed in [place]. Pt reported he was functioning at 35% ofpreCOVID level. He was referred to Sleep Medicine and has sleep study scheduled for later this month. Also referred to Bariatric Medicine and has appointment in July. Past Medical History: Diagnosis Date ??? Anxiety ??? Depressive disorder ??? Diabetes (H) ??? Hypertension ??? Neuromuscular disorder (H) Past Surgical History: Procedure Laterality Date ??? AMPUTATION Right 2nd, 3rd and great toe ??? MYRINGOTOMY, INSERT TUBE BILATERAL, COMBINED in childhood ??? SCROTOPLASTY SH: Was living with friends in [facility] prior to admission Single, his mother Renee Munson is first contact. Past smoker Not currently employed ROS: generalized weakness, fatigue, FERNANDEZ Difficulty sleeping Chronic LE neuropathic pain Ambulatory with FWW Recurrent anxiety and depression Wt Readings from Last 5 Encounters: 07/04/22 148.3 kg (327 lb) 06/27/22 149.9 kg (330 lb 6.4 oz) 06/24/22 (!) 151.5 kg (334 lb) 06/17/22 (!) 150.1 kg (331 lb) 05/13/22 (!) 152.9 kg (337 lb) EXAM: NAD BP 124/78 Pulse 72 Temp 98.1 ??F (36.7 ??C) Resp 18 Ht 1.778 m (5' 10) Wt 149.9 kg (330 lb 6.4 oz) SpO2 98% BMI 47.41 kg/m?? Neck supple without adenopathy Lungs clear bilaterally with fair air movement Heart RRR s1s2 distant Abd obese, soft, NT, no distention or guarding, +BS Ext with farrow wraps in place Neuro: ambulatory with FWW, poor balance. Uses WC sometimes Normal speech, no focal findings Psych: less depressed than at previous visit. More hopeful he will get thinks worked out. Last Comprehensive Metabolic Panel: Lab Results Component Value Date NA 140 06/27/2022 POTASSIUM 3.6 06/27/2022 CHLORIDE 98 06/27/2022 CO2 28 06/27/2022 ANIONGAP 14 06/27/2022 GLC 106 (H) 06/27/2022 BUN 41.6 (H) 06/27/2022 CR 1.24 (H) 06/27/2022 GFRESTIMATED 72 06/27/2022 DIANE 9.3 06/27/2022 Lab Results Component Value Date AST 33 06/17/2022 ALBUMIN 4.2 06/17/2022 ALKPHOS 115 06/17/2022 Lab Results Component Value Date WBC 13.1 06/17/2022 HGB 13.6 06/17/2022 MCV 86 06/17/2022 PLT 269 06/17/2022 ECHO 12/21/2021: Technically difficult study. Definity contrast utilized. Normal left-ventricular size. Moderate left ventricular hypertrophy. Normal left ventricular systolic function. Left ventricular ejection fraction estimated at 60 to 65%. Diastolic Doppler findings (E/E' ratio and/or other parameters) suggest left ventricular filling pressures are increased Normal right ventricular size and systolic function. Moderate left atrial enlargement. Moderate mitral annular calcification. Mild mitral regurgitation. Possible mild mitral stenosis. Mean gradient 5 mmHg. Mild enlargement of the aortic root Trivial pericardial effusion IVC diameter >2.1 cm collapsing <50% with sniff suggests a high RA pressure estimated at 15 mmHg or greater IMP/PLAN: (F45.42) Pain disorder associated with psychological factors and medical condition (M79.604, M79.605) Bilateral lower extremity pain (I73.9) PAD (peripheral artery disease) (H) (Z89.421) S/P amputation of lesser toe, right (H) Comment: ongoing reports of phantom pain, off balance since toe amputations Gabapentin /pregabalin have not been helpful Plan: [place] 5/325 tid Referral to Pain Clinic (U09.9) Long COVID (Z86.16) History of COVID-19 Comment: significant symptomatology since COVID infection a year ago. Plan: followed at [facility] Post-COVID clinic (E11.40, Z79.4) Type 2 diabetes mellitus with diabetic neuropathy, with long- term current use of insulin (H) (N18.2) CKD (chronic kidney disease) stage 2, GFR 60-89 ml/min Comment: Lab Results Component Value Date A1C 7.3 06/17/2022 Plan: Lantus 19 units/day Liraglutide started earlier this month, tapering up to 1.8 mg/day Metformin 500 mg bid He is on rosuvastatin 10 mg/day and daily ASA Not on ACEI secondary to hyperkalemia Ophthalmology and Podiatry follow up (I10) Essential hypertension (I50.32) Chronic heart failure with preserved ejection fraction (H) Comment: BP Readings from Last 3 Encounters: 06/27/22 124/78 06/24/22 121/71 06/14/22 (!) 166/71 Plan: amlodipine 10 mg/day, chlorthalidone 25 mg/day, hydralazine 100 mg tid, doxazosin 1 mg/HS Follow BPs and BMP (I89.0) Lymphedema Comment: related to stasis, obesity and HFpEF Plan: elevation, compression with farrow wraps, mobility Torsemide 30 mg/day Monitor for open areas (E66.01) Morbid obesity (H) Comment: BMI 47, with multiple sequelae including DM2, HTN, decreased mobility, sleep disturance Plan: Area Representative to follow and assist with calorie reduction. Pt is now being followed in Bariatric Medicine (F43.23) Adjustment disorder with mixed anxiety and depressed mood Comment: some improvement over past few months Plan: Pt follows with Psychiatry /psychology routinely Pt is being followed by oncology social work to look for housing opportunities and hopes to move to a less restrictive environment. Nettie Santiago MD documented in this encounter Plan of Treatment Upcoming Encounters Date Type Department Care Team (Late st Contact Info) Description 07/27/2023 10:00 AM CDT Virtual Visit [facility] Surgery Clinic and Bariatrics Care [address] [phone] Nasir Cunningham MD [address] [place], [place] [phone] documented as of this encounter Visit Diagnoses Diagnosis Type 2 diabetes mellitus with diabetic neuropathy, with long-term current use of insulin (H)- Primary CKD (chronic kidney disease) stage 2, GFR 60-89 ml/min Chronic kidney disease, Stage II (mild) Long COVID Adjustment disorder with mixed anxiety and depressed mood Lymphedema Other lymphedema Morbid obesity (H) Morbid obesity PAD (peripheral artery disease) (H24) Unspecified disorders of arteries and arterioles documented in this encounter Additional Health Concerns Assessment Noted Time PHQ-9 Depression Total Score: 19 023 2:47 PM REPAIR WEAVER documented as of this encounter Care Teams Drying Machine Receiver Relationship Specialty Start Date End Date Jennie Coleman APRN ENTRY LEVEL PROJECT COORDINATOR [address] [place] [address] PCP - General Geriatric Medicine 02/10/22 08/15/22 [place](Fgs), [facility] [address] [place] [phone] 02/10/22 08/15/22 [place] [address] [place] [phone] Physical Medicine and Rehabilitation 02/21/22 Samuel Rahman MD 2945 [facility] [address] [place] [address] Assigned Heart and Vascular Provider 04/02/22 Saba Pan MD 909 [facility] 3rd Floor [place], [place] [address] Assigned Neuroscience Provider 06/11/22 01/06/23 documented as of this encounter
--- OUTSIDE RECORDS SUMMARY | 2023-05-23 20:59 | XMS_ITS | Encounter Summary ---
Author Name Unknown Organization [facility] Address [address] [place] [address] Care Team Providers Care Patient Registration Manager Name Role Phone Jennie Coleman APRN, CNP Primary Care Provider + [phone] [place] Un[facility] Saba Pan MD Unavailable [phone] Samuel Rahman MD Unavailable [phone] Saba Pan MD Unavailable [phone] Reason for Visit * Reason Onset Date Comments Patient Request 06/23/2022 Would like the i nstructions for the sleep study faxed to [phone] [facility] or Nursing - Patient is in a senior living Encounter Details Date Type Department Care Team (Late st Contact Info) Description 06/23/2022 Telephone [facility] Geriatrics [address] [place] [phone] Jennie Coleman APRN [facility] [address] [place] [address] Patient Request (Would like the instructions for the sleep study faxed to [phone] [facility] or Nursing - Patient is in a senior living ) Social History Tobacco Use Types Packs/Day Years [...] Coronavirus/COVID-19? No / Unsure 06/17/2022 1:28 PM MARINE RAILWAY OPERATOR documented as of this encounter Miscellaneous Notes * Telephone Encounter - Flor Simpson - 06/23/2022 1:37 PM CST Information has been faxed to the number provided. NE RAILWAY OPERATOR * Telephone Encounter - Britni Cook - 06/23/2022 10:42 AM MARINE RAILWAY OPERATOR General Call Contacts Type Contact Phone/Fax 06/23/2022 10:42 AM MARINE RAILWAY OPERATOR Phone (Incoming) [place] (Other) Usp Reason for Call: Would like the instructions for the sleep study faxed to [phone] [facility] or Nursing - Patient is in a senior living What are your questions or concerns: Would like the instructions for the sleep study faxed to [phone] [facility] or Nursing - Patient is in a senior living Date of last appointment with provider: sleep study is at 07/11/22 Could we send this information to you in [facility] or would you prefer to receive a phone call?: No preference Okay to leave a detailed message?: Yes at Home number on file [phone] (home) NE RAILWAY OPERATOR documented in this encounter Plan of Treatment Upcoming Encounters Date Type Department Care Team (Late st Contact Info) Description 07/27/2023 10:00 AM CDT Virtual Visit [facility] Surgery Clinic and Bariatrics Care [address] [address] Nasir Cunningham MD [address] [place] [address] documented as of this encounter Visit Diagnoses Not on filedocumented in this encounter Additional Health Concerns Assessment Noted Time PHQ-9 Depression Total Score: 19 023 2:47 PM MARINE RAILWAY OPERATOR documented as of this encounter Care Teams Patient Registration Manager Relationship Specialty Start Date End Date Jared JennieSHWETHA araiza CNP [address] [place] [address] PCP - General Geriatric Medicine 02/10/22 08/15/22 [place](Fgs), [facility] [address] [place] [phone] 02/10/22 08/15/22 Saba Pan MD [address] [place] [phone] Physical Medicine and Rehabilitation 02/21/22 Samuel Rahman MD 2945 [facility] [address] [place] [address] Assigned Heart and Vascular Provider 04/02/22 Saba Pan MD 9 [facility] 3rd [place] [address] Assigned Neuroscience Provider 06/11/22 01/06/23 documented as of this encounter
--- OUTSIDE RECORDS SUMMARY | 2023-05-23 20:59 | XMS_ITS | Encounter Summary ---
Author Name Unknown Organization [facility] Address [address] [place] [address] Care Team Providers Care Wares Sorter Name Role Phone Jared Jennie TADEO CNP Primary Care Provider + [phone] [facility]), [facility] Care Unavailable Saba Pan MD Unavailable [phone] Samuel Rahman MD Unavailable [phone] Saba Pan MD Unavailable [phone] Bolivar Tierney DPM Unavailable [phone] Encounter Details Date Type Department Care Team (Late st Contact Info) Description 08/12/2022 Telephone [facility] Surgery Clinic and Bariatrics Care [address] [place] [address] Lexy Mcgraw, RD 420 [facility] 84 [place] [address] Social History Tobacco Use Types [...] Telephone Encounter - Lexy Mcgraw RD - 08/12/2022 8:44 AM CDT Attempts made to contact patient in regards to video visit that was scheduled for today with this inspector automatic typewriter at 8 am. Patient did not link onto video visit nor answer the phone with attempts made, therefore left patient a detailed message including call center contact information to call and reschedulethis appointment at his earliest convenience. documented in this encounter Plan of Treatment Upcoming Encounters Date Type Department Care Team (Late st Contact Info) Description 07/27/2023 10:00 AM CDT Virtual Visit [facility] Surgery Clinic and Bariatrics Care [address] [address] Nasir Cunningham MD [address] [place] [address] documented as of this encounter Visit Diagnoses Not on filedocumented in this encounter Additional Health Concerns Assessment Noted Time PHQ-9 Depression Total Score: 19 023 2:47 PM METAL BUMPER documented as of this encounter Care Teams Wares Sorter Relationship Specialty Start Date End Date Jennie Coleman APRN CNP [address] [place] [address] PCP - General Geriatric Medicine 02/10/22 08/15/22 [place](Fgs)[address] [phone] 02/10/22 08/15/22 Saba Pan MD [address] [place] [phone] Physical Medicine and Rehabilitation 02/21/22 Samuel Rahman MD [address] [place] [address] Assigned Heart and Vascular Provider 04/02/22 Saba Pan MD [address] [place] [address] Assigned Neuroscience Provider 06/11/22 01/06/23 Bolivar Tierney DPM [address] [place] [address] Assigned Surgical Provider 07/09/22 documented as of this encounter
--- OUTSIDE RECORDS SUMMARY | 2023-05-23 20:59 | XMS_ITS | Encounter Summary ---
Author Name Unknown Organization [facility] Address [address] [place] [address] Care Team Providers Care Wireless Operator Name Role Phone RashadjosRivas aguirreJenniejose g TADEO CNP Primary Care Provider + [phone] [place](Fgs) [facility] Care Unavailable Saba Pan MD Unavailable [phone] Samuel Rahman MD Unavailable [phone] Saba Pan MD Unavailable [phone] Reason for Visit * Reason Onset Date Comments Results 06/22/2022 Lab results revi ewed. Encounter Details Date Type Department Care Team (Late st Contact Info) Description 06/22/[address] [facility] Surgery Clinic and Bariatrics Care [address] [address] Nasir Cunningham MD [address] [place] [address] Results (Lab results reviewed.) Social History Tobacco Use Types Packs/Day Years [...] Coronavirus/COVID-19? No / Unsure 06/17/2022 1:28 PM GOVERNMENT AFFAIRS SPECIALIST documented as of this encounter Plan of Treatment Upcoming Encounters Date Type Department Care Team (Late st Contact Info) Description 07/27/2023 10:00 AM CDT Virtual Visit [facility] Surgery Clinic and Bariatrics Care [place] 2945 [facility] 200 [place] [phone] Nasir Cunningham MD 2945 [facility] 200 [place], [place] [phone] documented as of this encounter Visit Diagnoses Not on filedocumented in this encounter Additional Health Concerns Assessment Noted Time PHQ-9 Depression Total Score: 19 023 2:47 PM GOVERNMENT AFFAIRS SPECIALIST documented as of this encounter Care Teams Wireless Operator Relationship Specialty Start Date End Date Jennie Coleman APRN [address] VENDOR [address] [place] [address] PCP - General Geriatric Medicine 02/10/22 08/15/22 [place](Fgs)[address] [phone] 02/10/22 08/15/22 Saba Pan MD [address] [place] [phone] Physical Medicine and Rehabilitation 02/21/22 Samuel Rahman MD 2945 [facility] [address] [place] [address] Assigned Heart and Vascular Provider 04/02/22 Saba Pan MD [address] [address] Assigned Neuroscience Provider 06/11/22 01/06/23 documented as of this encounter
--- OUTSIDE RECORDS SUMMARY | 2023-05-23 20:59 | XMS_ITS | Encounter Summary ---
Author Name Unknown Organization [facility] Address [address] [place] [address] Care Team Providers Care Education Paraprofessional Name Role Phone Jennie Coleman APRN, CNP Primary Care Provider + [place](Fgs), [facility] Unavailable Saba Pan MD Unavailable +[phone] Samuel Rahman MD Unavailable [phone] Saba Pan MD Unavailable + [phone] Bolivar Tierney DPM Unavailable [phone] Jennie Coleman APRN, CNP Unavailable + Lety Baldwin Primary Care Provider +[phone] Rojas Walker PA-C Unavailable [phone] Jennie Coleman APRN, CNP Unavailable + Encounter Details Date Type Department Care Team (Late st Contact Info) Description 07/04/2022 MyC Medical Advice [facility] [place] [address] [facility] 202 [place] [address] Marilee Min, TEACHER Social History Tobacco Use Types Packs/Day Years [...] Description 07/27/2023 10:00 AM CDT Virtual Visit [facility] Surgery Clinic and Bariatrics Care [address] [place] [phone] Nasir Cunningham MD [address] [place] [phone] documented as of this encounter Visit Diagnoses Not on filedocumented in this encounter Additional Health Concerns Assessment Noted Time PHQ-9 Depression Total Score: 19 023 2:47 PM PLASTICS WORKER documented as of this encounter Care Teams Education Paraprofessional Relationship Specialty Start Date End Date Jennie Coleman APRN CNP [address] [place] [address] PCP - General Geriatric Medicine 02/10/22 08/15/22 Lety Baldwin PA [address] [place] [address] PCP - General Family Practice 10/10/22 [place](Fgs), [facility] [address] [place] [address] 02/10/22 08/15/22 [place] [address] [place] [address] Physical Medicine and Rehabilitation 02/21/22 Samuel Rahman MD 2945 [facility] [address] [place] [address] Assigned Heart and Vascular Provider 04/02/22 Saba Pan MD 909 [facility] 3rd Floor [place], [place] [address] Assigned Neuroscience Provider 06/11/22 01/06/23 Bolivar Tierney DPM 2945 [facility] [address], [place] [phone] Assigned Surgical Provider 07/09/22 Jennie Coleman APRN CARD FOLDER [address] [place] [address] Assigned Pain Medication Provider 08/13/22 02/10/23 Rojas Walker PA-C [address] [address] Assigned Neuroscience Provider 01/07/23 Jennie Coleman APRN CARD FOLDER [address] [place] [address] Assigned PCP 05/11/23 documented as of this encounter
--- OUTSIDE RECORDS SUMMARY | 2023-05-23 20:59 | XMS_ITS | Encounter Summary ---
Author Name Unknown Organization [place] Address [address] [place] [address] Care Team Providers Care Dialysis Rn Name Role Phone Jared Jennie TADEO CNP Primary Care Provider + [phone] [place]([facility] Unavailable Saba Pan MD Unavailable +[phone] Samuel Rahman MD Unavailable +[phone] Saba Pan MD Unavailable +[phone] Bolivar Tierney DPM Unavailable +[phone] Encounter Details Date Type Department Care Team (Latest Contact Info) Description 08/05/2022 Travel Social History Tobacco Use Types Packs/Day [...] Description 07/27/2023 10:00 AM CDT Virtual Visit [facility] [place] [address] [facility] [address] [place] [phone] Nasir Cunningham MD [address]45 [facility] 200 [place], [place] [phone] documented as of this encounter Visit Diagnoses Not on filedocumented in this encounter Additional Health Concerns Assessment Noted Time PHQ-9 Depression Total Score: 19 023 2:47 PM REVIEW NURSE documented as of this encounter Care Teams Dialysis Rn Relationship Specialty Start Date End Date Jennie Coleman APRN LOCAL TRUCK DRIVER [address] [place] [address] PCP - General Geriatric Medicine 02/10/22 08/15/22 [place]([facility] [address] [place] [phone] 02/10/22 08/15/22 [place] [address] [place] [phone] Physical Medicine and Rehabilitation 02/21/22 [place] [address] [place] [address] [address] [place] [address] Assigned Heart and Vascular Provider 04/02/22 Saba Pan MD [address] [facility] [address] [place], [place] [address] Assigned Neuroscience Provider 06/11/22 01/06/23 Bolivar Tierney DPM [address] [place] [address] [address] [place] [address] Assigned Surgical Provider 07/09/22 documented as of this encounter
--- OUTSIDE RECORDS SUMMARY | 2023-05-23 20:59 | XMS_ITS | Encounter Summary ---
Author Name Unknown Organization [place] Address [address] [place] [address] Care Team Providers Care Retail Advisor Name Role Phone Jared Jennie TADEO CNP Primary Care Provider + [phone] [place]([facility] Unavailable Saba Pan MD Unavailable +[phone] Samuel Rahman MD Unavailable +[phone] Saba Pan MD Unavailable +[phone] Bolivar Tierney DPM Unavailable +[phone] Encounter Details Date Type Department Care Team (Latest Contact Info) Description 08/08/2022 Travel Social History Tobacco Use Types Packs/Day [...] Description 07/27/2023 10:00 AM CDT Virtual Visit [facility] [place] [address]45 [facility] 200 [place] [phone] Nasir Cunningham MD [address]45 [facility] 200 [place], [place] [phone] documented as of this encounter Visit Diagnoses Not on filedocumented in this encounter Additional Health Concerns Assessment Noted Time PHQ-9 Depression Total Score: 19 023 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 [address] [place] [phone] 02/10/22 08/15/22 [place] [address] [place] [phone] Physical Medicine and Rehabilitation 02/21/22 [place] [address] [place] [address] [address] [place] [address] Assigned Heart and Vascular Provider 04/02/22 Saba Pan MD [address] [facility] [address] [place], [place] [address] Assigned Neuroscience Provider 06/11/22 01/06/23 Bolivar Tierney DPM [address] [place] [address] [address] [place] [address] Assigned Surgical Provider 07/09/22 documented as of this encounter
--- OUTSIDE RECORDS SUMMARY | 2023-05-23 21:00 | XMS_ITS | Encounter Summary ---
Author Name Unknown Organization [place] Address [address] [place] [address] Care Team Providers Care Patient Services Clerk Name Role Phone Jared Jennie TADEO CNP Primary Care Provider + [phone] [place]([facility]gs[facility] Unavailable Saba Pan MD Unavailable [phone] Samuel Rahman MD Unavailable +[phone] Saba Pan MD Unavailable [phone] Encounter Details Date Type Department Care Team (Latest Contact Info) Description 06/17/2022 Travel Social History Tobacco Use Types Packs/Day [...] Coronavirus/COVID-19? 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 [address] [place] [phone] 02/10/22 08/15/22 [place] [address] [place] [phone] Physical Medicine and Rehabilitation 02/21/22 Samuel Rahman MD [address] [facility] [address] [place] [address] Assigned Heart and Vascular Provider 04/02/22 Saba Pan MD [address] [facility] 3rd [place] [address] Assigned Neuroscience Provider 06/11/22 01/06/23 documented as of this encounter
--- OUTSIDE RECORDS SUMMARY | 2023-05-23 21:00 | XMS_ITS | Encounter Summary ---
Author Name Unknown Organization [facility] Address [address] [place] [id number] Care Team Providers Care School Bus Technician Name Role Phone Jennie Coleman APRN, CNP Primary Care Provider + [phone] [facility] Unavailable Saba Pan MD Unavailable [phone] Samuel Rahman MD Unavailable [phone] Rojas Walker PA-C Unavailable [phone] Reason for Referral * Consultation (Routine) - Pending Review Specialty Diagnoses / Procedures Referred By Chapo hays Referred To Contact Diagnoses Post-COVID chronic anxiety Post-COVID chronic decreased mobility and endurance 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 Sleep difficulties Morbid obesity (H) Type 2 diabetes mellitus with peripheral neuropathy (H) Generalized anxiety disorder Major depressive disorder, recurrent episode, moderate (H) Saba Pan MD [address] [facility] 3rd [place] [address] Bolivar Tierney DPM [address] [facility] [address] [place] [address] Referral ID Status Reason Start Date Expiration Date V isits Requested Visits Authorized [id number] Pending Review 06/07/2022 06/07/2023 1 1 Question Answer Consult Type: Foot/Ankle Type: Per Protocol Scheduling Instructions: [facility] Orthopedic Water/Wastewater Project Manager will call you to coordinate your care as prescribed by your provider. A underwriting service representative will call you within 2 business days to help you schedule your appointment, or you may contact the Water/Wastewater Project Manager Pulley Man at: . Additional Information: TYpe 2 DM with PN with foot pain. Need new shoes and orthotics also. Comments Please be aware that coverage of these services is subject to the terms and limitations of your health insurance plan. Call member services at your health plan with any benefit or coverage questions. [facility] Orthopedic Water/Wastewater Project Manager will call you to coordinate your care as prescribed by your provider. A underwriting service representative will call you within 2 business days to help you schedule your appointment, or you may contact the Water/Wastewater Project Manager Pulley Man at: . DRY HAND * Mental Health Outpatient (Routine: Next available opening) - Pending Review Specialty Diagnoses / Procedures Referred By Contjorge t Referred To Contact Behavioral Health Diagnoses Post-COVID chronic anxiety Post-COVID chronic decreased mobility and endurance 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 Sleep difficulties Morbid obesity (H) Type 2 diabetes mellitus with peripheral neuropathy (H) Generalized anxiety disorder Major depressive disorder, recurrent episode, moderate (H) Saba Pan MD [address] [place] [address] Referral ID Status Reason Start Date Expiration Date V isits Requested Visits Authorized [id number] Pending Review 06/07/2022 06/07/2023 1 1 Question Answer Services: Psychiatric Medication Eval and Stabilization Reason for Referral - REVIEW REFERENCE LINK BELOW: Evaluate for long-term management Reason for Referral: I am not a PCP, I am a specialist that does not prescribe psychiatric meds Scheduling Instructions: [employer] [facility] will call you to coordinate your care as prescribed by your provider. If you don't hear from a underwriting service representative within 2 business days, please call . Additional Information: Post COVID increaed anxiety and depression. Working with counselor Dr. Martin. Comments Please be aware that coverage of these services is subject to the terms and limitations of your health insurance plan. Call member services at your health plan with any benefit or coverage questions. [facility] will call you to coordinate your care as prescribed by your provider. If you don't hear from a underwriting service representative within 2 business days, please call . DRY HAND Encounter Details Date Type Department Care Team (Latest Contact Info) Description 06/07/2022 3:00 PM FOUNDRY HAND Virtual Visit [facility] [address] [address] Saba Pan MD [address] [place] [id number] Post-COVID chronic anxiety (Primary Dx); Post-COVID chronic decreased mobility and endurance; Post-COVID chronic fatigue; Post-COVID chronic muscle pain; Sleep difficulties; Morbid [...] suspected to have Coronavirus/COVID-19? Unable to assess 05/13/2022 7:40 AM FOUNDRY HAND documented as of this encounter Patient Instructions * Patient Instructions* Saba Pan MD - 06/07/2022 3:00 PM FOUNDRY HAND Energy Conservation and Self Pacing: How to conserve your energy - RCOT - www.rcot.co.uk Plan and Recommendations: Continue behavioral health therapist work. Will also ask Psychiatry to see to help manage. Referralwritten. Working with Sleep Medicine and sleep study scheduled for 07/07/22. To Bariatric Medicine, Dr. Cunningham (06/17/22). Continue diabetic foot care today. Getting pain in first digit with pressure. Needs new insoles andshoes. Will have him see Dr. Tierney Podiatry. Written. Continue to recommendation to get vaccinated against COVID. Benefits and risks reviewed. At care facility. Needs to follow good energy conservation techniques and self pacing. Will providewith additional online information. I will follow up with Gale Munson in 5-6 months. I will review progress and consider need for any other therapeutic interventions (PT/OT post COVID programs). If there are any questions and/or concerns he will call the clinic. DRY HAND documented in this encounter Progress Notes * Saba Pan MD - 06/07/2022 3:00 PM CST Video-Visit Details Type of service: Video Visit Originating Location (pt. Location): Home Distant Location (provider location): Off-site Platform used for Video Visit: zoomsquare Answers for HPI/ROS submitted by the patient on 06/07/2022 If you checked off any problems, how difficult have these problems made it for you to do your work,take care of things at home, or get along with other people?: Somewhat difficult PHQ9 TOTAL SCORE: 19 ANTONIA 7 TOTAL SCORE: 19 General Symptoms: Yes Skin Symptoms: Yes HENT Symptoms: Yes EYE SYMPTOMS: Yes HEART SYMPTOMS: Yes LUNG SYMPTOMS: Yes INTESTINAL SYMPTOMS: Yes URINARY SYMPTOMS: Yes REPRODUCTIVE SYMPTOMS: Yes SKELETAL SYMPTOMS: Yes BLOOD SYMPTOMS: Yes NERVOUS SYSTEM SYMPTOMS: Yes MENTAL HEALTH SYMPTOMS: Yes Ear pain: No Ear discharge: Yes Hearing loss: No Tinnitus: Yes Nosebleeds: No Congestion: Yes Sinus pain: No Trouble swallowing: No Voice hoarseness: No Mouth sores: No Sore throat: No Tooth pain: Yes Gum tenderness: Yes Bleeding gums: Yes Change in taste: No Change in sense of smell: No Dry mouth: No Hearing aid used: No Neck lump: No Fever: No Loss of appetite: No Weight loss: Yes Weight gain: Yes Fatigue: Yes Night sweats: Yes Chills: Yes Increased stress: Yes Excessive hunger: Yes Excessive thirst: Yes Feeling hot or cold when others believe the temperature is normal: Yes Loss of height: No Post-operative complications: No Surgical site pain: No Hallucinations: No Change in or Loss of Energy: Yes Changes in hair: No Changes in moles/ kent: No Itching: Yes Rashes: No Changes in nails: No Acne: Yes Change in facial hair: No Warts: No Non-healing sores: No Scarring: Yes Flaking of skin: Yes Color changes of hands/feet in cold : Yes Sun sensitivity: No Skin thickening: Yes Vision loss: Yes Dry eyes: No Watery eyes: Yes Eye bulging: No Double vision: No Flashing of lights: No Spots: No Floaters: No Redness: No Crossed eyes: No Tunnel Vision: No Yellowing of eyes: No Eye irritation: Yes Chest pain or pressure: No Fast or irregular heartbeat: Yes Pain in legs with walking: Yes Trouble breathing while lying down: Yes Fingers or toes appear blue: No High blood pressure: Yes Low blood pressure: Yes Fainting: No Murmurs: Yes Pacemaker: No Varicose veins: Yes Wake up at night with shortness of breath: No Light-headedness: Yes Exercise intolerance: Yes Cough: No Sputum or phlegm: Yes Coughing up blood: No Difficulty breating or shortness of breath: Yes Snoring: Yes Wheezing: Yes Difficulty breathing on exertion: Yes Nighttime Cough: Yes Difficulty breathing when lying flat: Yes Heart burn or indigestion: Yes Nausea: Yes Vomiting: Yes Abdominal pain: Yes Bloating: No Constipation: Yes Diarrhea: No Blood in stool: No Black stools: No Rectal or Anal pain: No Fecal incontinence: No Yellowing of skin or eyes: No Vomit with blood: No Change in stools: No Trouble holding urine or incontinence: No Pain or burning: No Trouble starting or stopping: No Increased frequency of urination: Yes Blood in urine: No Decreased frequency of urination: No Frequent nighttime urination: Yes Flank pain: Yes Difficulty emptying bladder: No Scrotal pain or swelling: No Erectile dysfunction: No Penile discharge: No Genital ulcers: No Reduced libido: Yes Back pain: Yes Muscle aches: Yes Neck pain: Yes Swollen joints: Yes Joint pain: Yes Bone pain: Yes Muscle cramps: No Muscle weakness: Yes Joint stiffness: Yes Bone fracture: No Edema or swelling: Yes Anemia: No Swollen glands: No Easy bleeding or bruising: Yes Trouble with coordination: No Dizziness or trouble with balance: Yes Fainting or black-out spells: No Memory loss: No Headache: No Seizures: No Speech problems: No Tingling: No Tremor: Yes Weakness: Yes Difficulty walking: Yes Paralysis: No Numbness: Yes Nervous or Anxious: Yes Depression: Yes Trouble sleeping: Yes Trouble thinking or concentrating: Yes Mood changes: Yes Panic attacks: Yes PHQ Assesment Total Score(s) 03/01/2022 PHQ-9 Score 18 Some recent data might be hidden ANTONIA-7 Results 03/01/2022 ANTONIA 7 TOTAL SCORE 17 (severe anxiety) Some recent data might be hidden PTSD Screen Score 03/01/2022 Have you ever experienced this kind of event? Yes PTSD Screen (Score of 3 or more suggests positive screen) 5 Some recent data might be hidden PHQ Assesment Total Score(s) 06/07/2022 PHQ-9 Score 19 Some recent data might be hidden ANTONIA-7 Results 06/07/2022 ANTONIA 7 TOTAL SCORE 19 (severe anxiety) Some recent data might be hidden PTSD Screen Score 06/07/2022 Have you ever experienced this kind of event? Yes PTSD Screen (Score of 3 or more suggests positive screen) 5 Some recent data might be hidden PROMIS-29 06/07/2022 PROMIS Physical Function T-Score 26.9 (severe dysfunction) PROMIS Anxiety T-Score 81.6 (severe) PROMIS Depression T-Score 69.4 (moderate) PROMIS Fatigue T-Score 75.8 (severe) PROMIS Sleep Disturbance T-Score 68.8 (moderate) PROMIS Ability to Participate in Social Roles & Activities T-Score 29 (severe dysfunction) PROMIS Pain Interference T-Score 75.6 (severe) PROMIS Pain Intensity 6 Past Medical History: Past Medical History: Diagnosis Date ??? Anxiety ??? Depressive disorder ??? Diabetes (H) ??? Hypertension ??? Neuromuscular disorder (H) Surgical History: Past Surgical History: Procedure Laterality Date ??? AMPUTATION Right 2nd, 3rd and great toe ??? MYRINGOTOMY, INSERT TUBE BILATERAL, COMBINED in childhood ??? SCROTOPLASTY Medications: Current Outpatient Medications Medication ??? acetaminophen (TYLENOL) [...] glargine (LANTUS PEN) 100 UNIT/ML pen ??? melatonin 3 MG tablet ??? metFORMIN (GLUCOPHAGE) 500 MG tablet ??? nicotine (NICORETTE) 2 MG gum ??? polyethylene glycol (MIRALAX) 17 GM/Dose powder ??? rosuvastatin (CRESTOR) 10 MG tablet ??? SENNA-docusate sodium (SENNA S) 8.6-50 MG tablet ??? torsemide (DEMADEX) 20 MG tablet No current facility-administered medications for this visit. Allergies: Allergies Allergen Reactions ??? Penicillins Anaphylaxis Family history: Family History Problem Relation Age of Onset ??? Sleep Apnea Maternal Grandfather ??? Sleep Apnea Cousin Social History: Social History Tobacco Use ??? Smoking status: Former ??? Smokeless tobacco: Never ??? Tobacco comments: Smoked about 1/2 ppd for maybe 5 years quitting over 10 years ago (as of 2022) Substance Use Topics ??? Alcohol use: Not Currently ??? Drug use: Not Currently SUBJECTIVE: Initial: 03/01/22 This 46 year old male presents to the [facility] Rehabilitation Medicine Post-COVID clinic as a new consult to evaluate continuing symptoms after COVID infection initially diagnosed in [facility] 03/25/22 requiring hospitalization with O2 support and antibodies, with O2 level per patient going down to 68%. He was in the hospital for 11 days. He eventually returned of [place] after breaking up with his girlfriend. Continuing symptoms include fatigue, generalized aches, weakness,shortness of breath, difficulty sleeping, numbness, tingling, anxiety and depression. Past medical history is significant for Type 2 DM with PN, suspected JOHN, morbid obesity, osteoarthritis multiple joints, PAD, LVH with sinus arrhythmia and RBBB, leg swelling and recurrent depression. He regularly sees behavioral health. He has not been vaccinated against COVID due to fears of the vaccine. 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 Gale Munson feels they are functioning at 35 % of pre COVID level. He admits he had diabetic shoes but lost them and they were uncomfortable. He walks around in title inspector socks at times. He feels off balance. He is getting lymphedema therapy with Farrow wraps. His right leg is more painful than left. He is able to elevate his feet and this does not increase his pain. He is scheduled to see Sleep Medicine 05/13/22. Update: 06/07/22 Gale Munson returns to the [facility] Rehabilitation Medicine Post-COVID clinic for follow up of continuing symptoms after COVID infection. History is as noted above. Most recent treatment plan ordered was Bariatric Medicine referral (Dr. Cunningham scheduled for 06/17/22), Sleep Medicine referral (saw Mike ONEILL 05/13/22 and scheduled for sleep study 07/11/22), Vascular Surgery referral (Dr. Haddad saw 03/24/22 R popliteal ? dissection possibly artifact but not compromising arterial function, agreed with Bariatric Medicine and to start 81 mg ASA daily), continued work with Behavioral Health, follow diabetic foot care instructions and vaccination against COVID recommended. Today Gale Munson reports his swelling is better with the Farrow wraps and he is looking forward to seeing Bariatrics and also having the sleep study. OBJECTIVE: Vitals: No vitals were obtained today due to virtual visit. Patient states they have not experienced any fevers. Physical Exam GENERAL: Healthy, alert and no distress EYES: Eyes grossly normal to inspection. No discharge or erythema, or obvious scleral/conjunctival abnormalities. RESP: No audible wheeze, cough, or visible cyanosis. No visible retractions or increased work of breathing. SKIN: Visible skin clear. No significant rash, abnormal pigmentation or lesions. NEURO: Cranial nerves grossly intact. Mentation and speech appropriate for age. PSYCH: Mentation appears normal, affect normal/bright, judgement and insight intact, normal speech and appearance well-groomed. Labs: I personally reviewed the following lab results today and those on care everywhere, if indicated No results found for: CRP No results found for: SED Lab Results Component Value Date WBC 10.3 03/11/2022 Lab Results Component Value Date RBC 3.47 03/11/2022 Lab Results Component Value Date HGB 10.1 03/11/2022 Lab Results Component Value Date HCT 31.3 03/11/2022 No components found for: MCT Lab Results Component Value Date MCV 90 03/11/2022 Lab Results Component Value Date MCH 29.1 03/11/2022 Lab Results Component Value Date MCHC 32.3 03/11/2022 Lab Results Component Value Date RDW 13.2 03/11/2022 Lab Results Component Value Date PLT 222 03/11/2022 Lab Results Component Value Date A1C 7.8 12/21/2021 A1C 6.9 11/18/2008 A1C 9.0 10/21/2008 TSH Date Value Ref Range Status 01/18/2022 1.65 0.30 - 4.20 uIU/mL Final No results found for: VITDT Last Comprehensive Metabolic Panel: Sodium Date Value Ref Range Status 04/18/2022 136 136 - 145 mmol/L Final Potassium Date Value Ref Range Status 04/18/2022 3.8 3.4 - 5.3 mmol/L Final 12/23/2021 4.1 3.5 - 5.0 mmol/L Final Chloride Date Value Ref Range Status 04/18/2022 98 98 - 107 mmol/L Final 12/23/2021 107 98 - 107 mmol/L Final Carbon Dioxide (CO2) Date Value Ref Range Status 04/18/2022 25 22 - 29 mmol/L Final 12/23/2021 25 22 - 31 mmol/L Final Anion Gap Date Value Ref Range Status 04/18/2022 13 7 - 15 mmol/L Final 12/23/2021 6 5 - 18 mmol/L Final Albumin Date Value Ref Range Status 01/31/2022 3.3 (L) 3.5 - 5.2 g/dL Final 12/22/2021 3.0 (L) 3.5 - 5.0 g/dL Final Glucose Date Value Ref Range Status 04/18/2022 172 (H) 70 - 99 mg/dL Final 12/23/2021 136 (H) 70 - 125 mg/dL Final GLUCOSE BY METER POCT Date Value Ref Range Status 01/19/2022 127 (H) 70 - 99 mg/dL Final Urea Nitrogen Date Value Ref Range Status 04/18/2022 46.2 (H) 6.0 - 20.0 mg/dL Final 12/23/2021 14 8 - 22 mg/dL Final Creatinine Date Value Ref Range Status 04/18/2022 1.19 (H) 0.67 - 1.17 mg/dL Final GFR Estimate Date Value Ref Range Status 04/18/2022 76 >60 mL/min/1.73m2 Final Comment: Effective April 06, 2021 eGFRcr in adults is calculated using the 2020 CKD- EPI creatinine equation which includes age and gender (Tor et al., NEJ, DOI: 10.1056/WQKXkl6904812) 01/03/2019 >60 >60 mL/min/1.73m2 Final Calcium Date Value Ref Range Status 04/18/2022 9.3 8.6 - 10.0 mg/dL Final Bilirubin Total Date Value Ref Range Status 01/31/2022 0.2 <=1.2 mg/dL Final Alkaline Phosphatase Date Value Ref Range Status 01/31/2022 91 40 - 129 U/L Final ALT Date Value Ref Range Status 01/31/2022 12 10 - 50 U/L Final AST Date Value Ref Range Status 01/31/2022 21 10 - 50 U/L Final Recent Labs Lab Test 01/18/22 1703 MAG 2.2 No lab results found. Reviewed labs from [facility] sites and [facility] Imaging: I personally reviewed the following imaging results today and those on care everywhere, if indicated Nothing new to review Reviewed imaging from [facility] sites and [facility] Medical Records Reviewed: Reviewed consults/documents from [facility] and [facility] including Sleep Medicine and Behavioral Health Impression: 1. Fatigue-slightly improved 2. Leg pain and swelling-improved 3. 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 Type 2 DM with PN and foot pain 5. Morbid Obesity 6. Suspected JOHN 7. Anxiety and depression Plan: 1. Questions were answered. 2. Continue behavioral health therapist work. Will also ask Psychiatry to see to help manage. Referral written. 3. Working with Sleep Medicine and sleep study scheduled for 07/07/22. 4. To Bariatric Medicine, Dr. Cunningham (06/17/22). 5. Continue diabetic foot care today. Getting pain in first digit with pressure. Needs new insoles and shoes. Will have him see Dr. Tierney Podiatry. Written. 6. Continue to recommendation to get vaccinated against COVID. Benefits and risks reviewed. 7. At care facility. Needs to follow good energy conservation techniques and self pacing. Reviewed.Will provide with additional online information. 8. I will follow up with Gale Munson in 5-6 months. I will review progress and consider need for any other therapeutic interventions. If there are any questions and/or concerns he will call the clinic. On day of encounter time spent in chart review and with patient in consultation, exam, education and coordination of care, excluding procedures: 35 minutes Saba Pan MD, FAAPMR Marking Machine Operator Department Rehabilitation Medicine-Wound Fellowship Director Adjunct Marking Machine Operator Department [facility] DRY HAND documented in this encounter Nursing Notes * Malini Silva - 06/07/2022 3:00 PM CST Is the patient currently in the state of [place]? YES Visit mode:VIDEO If the visit is dropped, the patient can be reconnected by: VIDEO VISIT: Text to cell phone: [phone] Will anyone else be joining the visit? NO How would you like to obtain your AVS? MyChart Are changes needed to the allergy or medication list? NO Reason for visit: Pt. Has no comments or concerns for VF to relay to provider. Pt. Offered Triage, declined today and reports he is seeing therapist. Malini Silva on 06/07/2022 at 2:55 PM DRY HAND documented in this encounter Plan of Treatment Upcoming Encounters Date Type Department Care Team (Late st Contact Info) Description 07/27/2023 10:00 AM CDT Virtual Visit [facility] and [facility] [address] [place] [address] Nasir Cunningham MD [address] [place] [id number] Scheduled Referrals Name Type Priority Associated Diagnoses Orde r Schedule Adult Mental Health Water/Wastewater Project Manager Referral Referral Routine: Next available opening Post-COVID chronic anxiety Post-COVID chronic decreased mobility and endurance 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 Sleep difficulties Morbid obesity (H) Type 2 diabetes mellitus with peripheral neuropathy (H) Generalized anxiety disorder Major depressive disorder, recurrent episode, moderate (H) Expected: 06/07/2022 (Approximate), Expires: 12/05/2022 Orthopedic Water/Wastewater Project Manager Referral Referral Routine Post-COVID chronic anxiety Post-COVID chronic decreased mobility and endurance 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 Sleep difficulties Morbid obesity (H) Type 2 diabetes mellitus with peripheral neuropathy (H) Generalized anxiety disorder Major depressive disorder, recurrent episode, moderate (H) Expected: 06/07/2022 (Approximate), Expires: 12/05/2022 documented as of this encounter Visit Diagnoses Diagnosis Post-COVID chronic anxiety- Primary Post-COVID chronic decreased mobility and endurance 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 Sleep difficulties Sleep disturbance, unspecified Morbid obesity (H) Morbid obesity Type 2 diabetes mellitus with peripheral neuropathy (H) Generalized anxiety disorder Major depressive disorder, recurrent episode, moderate (H) Major depressive disorder, recurrent episode, moderate documented in this encounter Additional Health Concerns Assessment Noted Time PHQ-9 Depression Total Score: 19 023 2:47 PM FOUNDRY HAND documented as of this encounter Care Teams School Bus Technician Relationship Specialty Start Date End Date Jennie Coleman APRN TOOTH CLERK [address] [place] [address] PCP - General Geriatric Medicine 02/10/22 08/15/22 Center([facility]), [facility] [id number] [place] [phone] 02/10/22 08/15/22 Saba Pan MD [address] [place] [phone] Physical Medicine and Rehabilitation 02/21/22 Samuel Rahman MD [address] [place] [address] [address], [place] [address] Assigned Heart and Vascular Provider 04/02/22 Rojas Walker PA-C [address] [address] Assigned Neuroscience Provider 05/21/22 06/10/22 documented as of this encounter
--- OUTSIDE RECORDS SUMMARY | 2023-05-23 21:00 | XMS_ITS | Encounter Summary ---
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 Name Role Phone Jennie Coleman APRN, CNP Primary Care Provider + [phone] [place] Unavailable Saba Pan MD Unavailable [phone] Saba Pan MD Unavailable [phone] Samuel Rahman MD Unavailable [phone] Rojas Walker PA-C Unavailable [phone] Saba Pan MD Unavailable [phone] Reason for Visit * Reason Comments apnea observed, insomnia, nightmares * Consultation (Routine: Next available opening) - Closed Specialty Diagnoses / Procedures Referred By Contac t Referred To Contact Diagnoses Benign essential hypertension JOHN (obstructive sleep apnea) Nakia Turner APRN MATERIALS SCHEDULER [address] [place] [address] Referral ID Status Reason Start Date Expiration Date Visits Re quested Visits Authorized [id number] Closed 01/18/2022 01/18/2023 1 1 Encounter Details Date Type Department Care Team (Late st Contact Info) Description 05/13/2022 1:00 PM POLICE BOOKING OFFICER Virtual Visit [facility] [address] [phone] Nakia Turner APRN MATERIALS SCHEDULER [address] [place] [address] Rojas Walker PA-C [address] [place] [address] Snoring (Primary Dx); Benign essential hypertension; Chronic insomnia; Observed sleep apnea; BMI 45.0-49.9, adult (H); Nightmares Social History Tobacco Use Types Packs/Day Years Used Date Smoking Tobacco: Former Smokeless Tobacco: Never Tobacco Cessation:Counseling Given: Not Answered Comments:Smoked about 1/2 ppd [...] suspected to have Coronavirus/COVID-19? No / Unsure 06/14/2022 2:27 PM POLICE BOOKING OFFICER documented as of this encounter Last Filed Vital Signs Vital Sign Reading Time Taken Comments Blood Pressure - - Pulse - - Temperature - - Respiratory Rate - - Oxygen Saturation - - Inhaled Oxygen Concentration - - Weight 152.9 kg (337 lb) 05/13/2022 12:35 PM POLICE BOOKING OFFICER Height 180.3 cm (5' 11) 05/13/2022 12:35 PM POLICE BOOKING OFFICER Body Mass Index 47 05/13/2022 12:35 PM POLICE BOOKING OFFICER documented in this encounter Patient Instructions * Patient Instructions* Rojas Walker PA-C - 05/13/2022 1:00 PM POLICE BOOKING OFFICER Images from the original note were not included. MY TREATMENT INFORMATION FOR SLEEP APNEA- Gale Munson DOCTOR : Rojas Walker PA-C Am I having a sleep study at a sleep center? --->Due to normal delays, you will be contacted within 2-4 weeks to schedule Frequently asked questions: 1. What is Obstructive Sleep Apnea (JOHN)? JOHN is the most common type of sleep apnea. Apnea means, without breath. Apnea is most often caused by narrowing or collapse of the upper airway as musclesrelax during sleep. Almost everyone has occasional apneas. Most people with sleep apnea have had brief interruptions atnight frequently for many years. The severity of sleep apnea is related to how frequent and severe the events are. 2. What are the consequences of JOHN? Symptoms include: feeling sleepy during the day, snoring loudly, gasping or stopping of breathing, trouble sleeping, and occasionally morning headaches or heartburn at night. Sleepiness can be serious and even increase the risk of falling asleep while driving. Other health consequences may include development of high blood pressure and other cardiovascular disease in persons who are susceptible. Untreated JOHN can contribute to heart disease, stroke and diabetes. 3. What are the treatment options? In most situations, sleep apnea is a lifelong disease that must be managed with daily therapy. Medications are not effective for sleep apnea and surgery is generally not considered until other therapies have been tried. Your treatment is your choice . Continuous Positive Airway (CPAP) works right away and is the therapy that is effective in nearly everyone. An oral device to hold your jaw forward is usually the next most reliable option. Other options include postioning devices (to keep you off your back), weight loss, and surgery including a tongue pacing device. There is more detail about some of these options below. 4. Are my sleep studies covered by insurance? Although we will request verification of coverage, weadvise you also check in advance of the study to ensure there is coverage. Important tips for those choosing CPAP and similar devices Know your equipment: CPAP is continuous positive airway pressure that prevents obstructive sleep apnea by keeping the throat from collapsing while you are sleeping. In most cases, the device is ???smart?? and can slowlyself-adjusts if your throat collapses and keeps a record every day of how well you are treated-this information is available to you and your care team. BPAP is bilevel positive airway pressure that keeps your throat open and also assists each breath with a pressure boost to maintain adequate breathing. Special kinds of BPAP are used in patients who have inadequate breathing from lung or heart disease. In most cases, the device is ???smart?? and can slowly self-adjusts to assist breathing. Like CPAP, the device keeps a record of how well you aretreated. Your mask is your connection to the device. You get to choose what feels most comfortable and the staff will help to make sure if fits. Here: are some examples of the different masks that are available: Lenz points to remember on your journey with sleep apnea: Sleep study. PAP devices often need to be adjusted during a sleep study to show that they are effective and adjusted right. Good tips to remember: Try wearing just the mask during a quiet time during the day so your body adapts to wearing it. A humidifier is recommended for comfort in most cases to prevent drying of your nose and throat. Allergy medication from your provider may help you if you are having nasal congestion. Getting settled-in. It takes more than one night for most of us to get used to wearing a mask. Try wearing just the mask during a quiet time during the day so your body adapts to wearing it. A humidifier is recommended for comfort in most cases. Our team will work with you carefully on the first day and will be in contact within 4 days and again at 2 and 4 weeks for advice and remote device adjustments. Your therapy is evaluated by the device each day. Use it every night. The more you are able to sleep naturally for 7-8 hours, the more likely you will have good sleep and to prevent health risks or symptoms from sleep apnea. Even if you use it 4 hours it helps. Occasionally all of us are unable to use a medical therapy, in sleep apnea, it is not dangerous to miss one night. Communicate. Call our skilled team on the number provided on the first day if your visit for problems that make it difficult to wear the device. Over 2 out of 3 patients can learn to wear the device long-term with help from our team. Remember to call our team or your sleep providers if you are unable to wear the device as we may have other solutions for those who cannot adapt to mask CPAP therapy. It is recommended that you sleep your sleep provider within the first 3 months and yearly after that if you are not having problems. Use it for your health. We encourage use of CPAP masks during daytime quiet periods to allow your face and brain to adapt to the sensation of CPAP so that it will be a more natural sensation to awaken to at night or during naps. This can be very useful during the first few weeks or months of adapting to CPAP though it does not help medically to wear CPAP during wakefulness and should not be used as a strategy just to meet guidelines. Take care of your equipment. Make sure you clean your mask and tubing using directions every day and that your filter and mask are replaced as recommended or if they are not working. BESIDES CPAP, WHAT OTHER THERAPIES ARE THERE? Positioning Device Positioning devices are generally used when sleep apnea is mild and only occurs on your back.This example shows a pillow that straps around the waist. It may be appropriate for those whose sleep study shows milder sleep apnea that occurs primarily when lying flat on one's back. Preliminary studies have shown benefit but effectiveness at home may need to be verified by a home sleep test. These devices are generally not covered by medical insurance. Examples of devices that maintain sleeping on the back to prevent snoring and mild sleep apnea. Belt type body positioner http://Wikidot/ Electronic reminder http://nightshifttherapy.com/ Oral Appliance What is oral appliance therapy? An oral appliance device fits on your teeth at night like a retainer used after having braces. The device is made by a specialized dentist and requires several visits over 1-2 months before a manufactured device is made to fit your teeth and is adjusted to prevent your sleep apnea. Once an oral device is working properly, snoring should be improved. A home sleep test may be recommended at that time if to determine whether the sleep apnea is adequately treated. Some things to remember: -Oral devices are often, but not always, covered by your medical insurance. Be sure to check with your insurance provider. -If you are referred for oral therapy, you will be given a list of specialized dentists to consideror you may choose to visit the Web site of the [place] [employer] -Oral devices are less likely to work if you have severe sleep apnea or are extremely overweight. More detailed information An oral appliance is a small acrylic device that fits over the upper and lower teeth (similar to a retainer or a mouth guard). This device slightly moves jaw forward, which moves the base of the tongue forward, opens the airway, improves breathing for effective treat snoring and obstructive sleep apnea in perhaps 7 out of 10 people . The best working devices are custom-made by a dental device certified nurse midwife after a mold is made of the teeth 1, 2, 3. When is an oral appliance indicated? Oral appliance therapy is recommended as a first-line treatment for patients with primary snoring, mild sleep apnea, and for patients with moderate sleep apnea who prefer appliance therapy to use of CPAP4, 5. Severity of sleep apnea is determined by sleep testing and is based on the number of respiratory events per hour of sleep. How successful is oral appliance therapy? The success rate of oral appliance therapy in patients with mild sleep apnea is 75-80% while in patients with moderate sleep apnea it is 50-70%. The chance of success in patients with severe sleep apnea is 40-50%. The research also shows that oral appliances have a beneficial effect on the cardiovascular health of JOHN patients at the same magnitude as CPAP therapy7. Oral appliances should be a second-line treatment in cases of severe sleep apnea, but if not completely successful then a combination therapy utilizing CPAP plus oral appliance therapy may be effective. Oral appliances tend to be effective in a broad range of patients although studies show that thepatients who have the highest success are females, younger patients, those with milder disease, andless severe obesity. 3, 6. Finding a dentist that practices dental sleep medicine Specific training is available through the [place] [employer] for dentists interested in working in the field of sleep. To find a dentist who is educated in the field of sleep and the use of oral appliances, near you, visit the Web site of the [employer] [employer]. References 1. Sera et al. Objectively measured vs self-reported compliance during oral appliance therapy for sleep-disordered breathing. Chest 2013; 144(5): 2273-6828. 2. Eyad, et al. Objective measurement of compliance during oral appliance therapy for sleep-disordered breathing. Thorax 2013; 68(1): 91-96. 3. Keyana et al. Mandibular advancement devices in 620 men and women with JOHN and snoring: tolerability and predictors of treatment success. Chest 2004; 125: 3797-3328. 4. Susan, et al. Oral appliances for snoring and JOHN: a review. Sleep 2006; 29: 244-262. 5. Lamin et al. Oral appliance treatment for JOHN: an update. J Clin Sleep Med 2014; 10(2): 215-227. 6. Alexander, et al. Predictors of OSAH treatment outcome. J [place] Res 2007; 86: 4912-6895. Weight Loss: Weight loss is a long-term strategy that may improve sleep apnea in some patients. Weight management is a personal decision and the decision should be based on your interest and the potential benefits. If you are interested in exploring weight loss strategies, the following discussion covers the impact on weight loss on sleep apnea and the approaches that may be successful. Being overweight does not necessarily mean you will have health consequences. Those who have BMI over 35 or over 27 with existing medical conditions carries greater risk. Weight loss decreases severity of sleep apnea in most people with obesity. For those with mild obesity who have developed snoring with weight gain, even 15-30 pound weight loss can improve and occasionally eliminate sleep apnea. Structured and life-long dietary and health habits are necessary to lose weight and keep healthier weight levels. Though there may be significant health benefits from weight loss, long-term weight loss is very difficult to achieve- studies show success with dietary management in less than 10% of people. In addition, substantial weight loss may require years of dietary control and may be difficult if patients have severe obesity. In these cases, surgical management may be considered. Finally, older individuals who have tolerated obesity without health complications may be less likely to benefit from weight loss strategies. BMI 47 Surgery: Surgery for obstructive sleep apnea is considered generally only when other therapies fail to work.Surgery may be discussed with you if you are having a difficult time tolerating CPAP and or when there is an abnormal structure that requires surgical correction. Nose and throat surgeries often enlarge the airway to prevent collapse. Most of these surgeries create pain for 1-2 weeks and up to halfof the most common surgeries are not effective throughout life. You should carefully discuss the benefits and drawbacks to surgery with your sleep provider and surgeon to determine if it is the best solution for you. More information Surgery for JOHN is directed at areas that are responsible for narrowing or complete obstruction of the airway during sleep. There are a wide range of procedures available to enlarge and/or stabilize the airway to prevent blockage of breathing in the three major areas where it can occur: the palate,tongue, and nasal regions. Successful surgical treatment depends on the accurate identification of the factors responsible for obstructive sleep apnea in each person. A personalized approach is required because there is no single treatment that works well for everyone. Because of anatomic variation, consultation with an examination by a sleep surgeon is a critical first step in determining what surgical options are best for each patient. In some cases, examination during sedation may be recommended in order to guide the selection of procedures. Patients will be counseled about risks and benefits as well as the typical recovery course after surgery. Surgery is typically not a cure for a person???s JOHN. However, surgery will often significantly improve one???s JOHN severity (termed ???success rate?? ). Even in the absence of a cure, surgery will decrease the cardiovascular risk associated with OSA7; improve overall quality of life8 (sleepiness, functionality, sleep quality, etc). Palate Procedures: Patients with JOHN often have narrowing of their airway in the region of their tonsils and uvula. The goals of palate procedures are to widen the airway in this region as well as to help the tissues resist collapse. Modern palate procedure techniques focus on tissue conservation and soft tissue rearrangement, rather than tissue removal. Often the uvula is preserved in this procedure. Residual sleep apnea is common in patient after pharyngoplasty with an average reduction in sleep apnea events of33%2. Tongue Procedures: ExamWhile patients are awake, the muscles that surround the throat are active and keep this region open for breathing. These muscles relax during sleep, allowing the tongue and other structures to collapse and block breathing. There are several different tongue procedures available. Selection of a tongue base procedure depends on characteristics seen on physical exam. Generally, procedures are aimed at removing bulky tissues in this area or preventing the back of the tongue from falling back during sleep. Success rates for tongue surgery range from 50-62%3. Hypoglossal Nerve Stimulation: Hypoglossal nerve stimulation has recently received approval from the [place] Food and Drug Administration for the treatment of obstructive sleep apnea. This is based on research showing that the system was safe and effective in treating sleep apnea6. Results showed that the median AHI score decreased 68%, from 29.3 to 9.0. This therapy uses an implant system that senses breathing patterns and delivers mild stimulation to airway muscles, which keeps the airway open during sleep. The system consists of three fully implanted components: a small generator (similar in size to a pacemaker), a breathing sensor, and a stimulation lead. Using a small handheld remote, a patient turns the therapy on before bed and off upon awakening. Candidates for this device must be greater than 18 years of age, have moderate to severe JOHN (AHI between 15-65), BMI less than 35, have tried CPAP/oral appliance for at least 8 weeks without success, and have appropriate upper airway anatomy (determined by a sleep endoscopy performed by Dr. Roderick De La Rosa). Hypoglossal Nerve Stimulation Pathway: The sleep surgeon???s office will work with the patient through the insurance prior-authorization process (including communications and appeals). Nasal Procedures: Nasal obstruction can interfere with nasal breathing during the day and night. Studies have shown that relief of nasal obstruction can improve the ability of some patients to tolerate positive airwaypressure therapy for obstructive sleep apnea1. Treatment options include medications such as nasal saline, topical corticosteroid and antihistamine sprays, and oral medications such as antihistaminesor decongestants. Non-surgical treatments can include external nasal dilators for selected patients. If these are not successful by themselves, surgery can improve the nasal airway either alone or incombination with these other options. Combination Procedures: Combination of surgical procedures and other treatments may be recommended, particularly if patients have more than one area of narrowing or persistent positional disease. The success rate of combination surgery ranges from 66-80%2,3. References Stephanie Mercado. The Role of the Nose in Snoring and Obstructive Sleep Apnoea: An Update. Eur Arch Otorhinolaryngol. 2011; 268: 1365-73. Capmiri SM; Tommy JA; Isaak JR; Anabel JF; Ugo MB; Rodri SG; Cecilio PAK. Surgical modifications of the upper airway for obstructive sleep apnea in adults: a systematic review and meta-analysis. SLEEP 2010;33(10):5135-4282. Dinorah Garg. Hypopharyngeal surgery in obstructive sleep apnea: an evidence-based medicine review. Arch Otolaryngol Head Neck Surg. 2005;132(2):206-13. [facility] YH1, Lakeisha Y, Sree ALIDA. The efficacy of anatomically based multilevel surgery for obstructive sleep apnea. Otolaryngol Head Neck Surg. 2003 Jan;129(4):327-35. Silvino Esparza. Hypopharyngeal Surgery in Obstructive Sleep Apnea: An Evidence-Based Medicine Review. Arch Otolaryngol Head Neck Surg. 2005;132(2):206-13. Elijah OREILLY et al. Upper-Airway Stimulation for Obstructive Sleep Apnea. N Engl J Med. 2014 Apr 25;370(2):139-49. Rudy Y et al. Increased Incidence of Cardiovascular Disease in Middle-aged Men with Obstructive Sleep Apnea. Am J Respir Crit Care Med; 2002 166: 159-165 Katty MICHAEL et al. Studying Life Effects and Effectiveness of Palatopharyngoplasty (SLEEP) study: Subjective Outcomes of Isolated Uvulopalatopharyngoplasty. Otolaryngol Head Neck Surg. 2011; 144: 623-631. General recommendations for sleep problems (Insomnia) Allow 2-4 weeks to see results Establish a regular sleep schedule Most people only need 7-8 hours of sleep. Don't be in bed longer than you need to sleep or you will end up spending more time awake in bed. This trains your brain to think of the bed as a place to not sleep. Go to bed at same time each night Get up at same time each day - Set an alarm everyday (even weekends). This is one of the most important tips. It prevents you from relying on your insomnia to get you up on time for your day. That actually reinforces insomnia. It also will help your body get into a pattern where you start feeling tired at a consistent time each night. The body functions best when you keep a consistent routine. Avoid sleeping-in and napping. Anytime you sleep during the day, you will be less tired at night. You may be tired enough to fall asleep, but you will wake more in the middle of the night because you will have met your sleep need before the night is done. Cut down time in bed (if not asleep, get up)- Use your bed only for sleep and sex Anytime you spend time in bed doing activities other than sleep (reading, watching TV, working, playing on the computer or phone, or even just laying in bed trying to sleep), you are training your brain to think of the bed as a place to do activities other than sleep. If you are not falling asleep within 20-30 minutes, get out of bed. While out of bed, avoid bright lights. Avoid work or chores. Being productive in the middle of the night reinforces waking up at night. Find relaxing, not particularly entertaining activities like reading, listening to music, or relaxation exercises. Go back to bed if you start feeling groggy, or after about 30 minutes, even if not feeling very tired. Sometimes, just getting out of bed stops the pattern of getting frustrated about laying in bed not sleeping, and that can help you fall asleep. Avoid trying to force yourself to sleep- sleep is not like everything else. The harder you work at most things, the more you can accomplish. The harder you work at sleep, the less you will sleep. Make the bedroom comfortable - quiet, dark and cool are better. Consider ear plugs (silicon). Use dark blinds or wear an eye mask if needed Make a relaxing routine prior to bedtime Relaxation exercises: Progressive muscle relaxation: Relax each muscle group individually Begin with your feet, flex, then relax. Try to imagine your feet feeling heavy and sinking into thebed. Move to your calves, do the same thing. Work through each muscle group toward your head. Relaxing Mental Imagery: Try to imagine a trip that you took and found relaxing, or imagine a day at the beach. Try to walk yourself through the day in your mind as if you were dreaming it. Try to imagine sensing the different experiences, such as feeling sand between your toes, the heat of the sunon your skin, seeing the waves crashing the shore, the smell of the salt water, etc. Deal with your worries before bedtime Set aside a worry time around dinner time for 10-15 minutes. Write down the things that are on your mind. Plan time in the coming days to address those issues. Brainstorm ideas on how you will deal with them. Try to identify issues that are out of your control, and try to let those issues go. Listen to relaxation tapes Classical Music or Nature sounds Back Massage Get regular exercise each day (at least 1-2 hours before bedtime) Take medications only as directed Eat a light bedtime snack or warm drink Warm milk Warm herbal tea (non-caffeinated) Things to avoid No overstimulating activities just before bed No competitive games before bedtime No exciting television programs before bedtime Avoid caffeine after lunchtime Avoid chocolate Do not use alcohol to induce sleep (worsens Insomnia) Do not take someone else's sleeping pills Do not look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
--- OUTSIDE RECORDS SUMMARY | 2023-05-23 21:00 | XMS_ITS | Encounter Summary ---
Author Name Unknown Organization [place] Address [address] [place] [address] Care Team Providers Care Superintendent Quarry Name Role Phone Jennie Coleman APRN, CNP Primary Care Provider + [phone] [place](Fgs) [facility] Care Unavailable Saba Pan MD Unavailable [phone] Samuel Rahman MD Unavailable [phone] Saba Pan MD Unavailable [phone] Encounter Details Date Type Department Care Team (Late st Contact Info) Description 06/20/2022 9:00 AM FRENCH TEACHER Virtual Visit [facility] [address] [place] [address] Lexy Mcgraw, RD 420 [facility] 84 [place], [place] [address] Type 2 diabetes mellitus with peripheral neuropathy (H) (Primary Dx); Class 3 severe obesity due to excess calories with serious comorbidity and body mass index (BMI) of 45.0 to 49.9 in adult (H); Nutritional counseling Social History Tobacco Use Types Packs/Day Years [...] In the last 10 days, have dustin prakash been in contact with someone who was confirmed or suspected to have Coronavirus/COVID-19? No / Unsure 06/17/2022 1:28 PM FRENCH TEACHER documented as of this encounter Progress Notes * Lexy Mcgraw, RD - 06/20/2022 9:00 AM CST Gale Munson is a 47 year old who is being evaluated via a billable video visit. How would you like to obtain your AVS? MyChart If the video visit is dropped, the invitation should be resent by: Send to e- mail at: [email or web address] Will anyone else be joining your video visit? No Medical Weight Loss Initial Diet Evaluation Assessment: Gale is presenting today for a new weight management nutrition consultation. Pt has had an initialappointment with Dr. Cunningham. Weight loss medication: Victoza. Anthropometrics: Pt's weight is 336 lbs Initial weight: 331 lbs Weight change: 5 lbs up since Monday BMI: There is no height or weight on file to calculate BMI. [place] body weight: 75.3 kg (166 lb 0.1 oz) Adjusted ideal body weight: 105.2 kg (232 lb 0.1 oz) Estimated RMR ([place]-St Jeor equation): 2425 kcals x 1.3 (light active) = 3153 kcals (for weight maintenance) Recommended Protein Intake: 80-100 grams of protein/day Medical History: Patient Active Problem List Diagnosis ??? Adjustment reaction with anxiety and depression ??? Cellulitis ??? 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 Diabetic foot infection (H) ??? Diabetic neuropathy (H) ??? Erectile dysfunction of organic origin ??? Essential hypertension ??? Generalized anxiety disorder ??? Renal cyst [...] of both legs ??? Morbid obesity (H) Diabetes: Yes-Metformin, Lantus BS Range: 145 mg/dL this AM, 157 mg/dL prior to bedtime HbA1c: No results found for: HGBA1C Nutrition History: Food allergies/intolerances/cultural or religous food customs: No Vitamins/Mineral Supplementation: Vitamin B12 Dietary Recall: Breakfast: scrambled eggs, Cheerios, glass of milk, coffee Lunch: turkey or pork roast or beef roast or burger with veggies, small dessert, 8 oz can of diet pop Dinner: similar to lunch (aiming for protein first) Typical Snacks: turkey sandwich or string cheese or SF Jell-O or Protein Shake Overnight eating: Yes-however once started the medication, it has improved Beverages: water, diet pop, coffee, milk (on a 2 liter fluid restriction) Exercise: NuStep, PT exercises, Balance exercises 2 times/week for 20-30 minutes Nutrition Diagnosis (PES statement): Overweight/Obesity (NC 3.3) related to overeating and poor lifestyle habits as evidenced by patientreport of h/o excessive energy intake and BMI of 46.98 kg/m2. Nutrition Intervention 1. Food and/or Nutrient Delivery a. Placed emphasis on importance of developing a healthy meal routine, aiming for 3 meals a day andno snacks. 2. Nutrition Education a. Discussed with patient how to build a meal: the importance of including a lean/low fat protein at each meal, include a source of vegetables at a minimum of lunch and dinner and limiting carbohydrate intake to <25% per meal. b. Educated on sources of lean protein, portion sizes, the amount of grams found in each source. Recommend patient to aim for 20-30g protein at each meal. c. Educated on how to read a food label: keeping total fat <10g and sugar <10g per serving. d. Discussed the importance of adequate hydration, with emphasis on drinking 64oz of water or zero calorie beverages per day. 3. Nutrition Counseling a. Encouraged importance of developing routine exercise for health benefits and weight loss. b. Discussed mindful eating techniques such as eating off smaller places/bowls, taking 20-30 minutes to eat in a calm/relaxed environment without distractions. Goals established by patient: 1. Focus on protein first, aiming for 30 grams of protein/meal, 3 meals/day. 2. Continue to work on avoidance of eating late at night. Handouts provided: None-provided at MD appt Assessment/Plan: Pt will follow up in 3 month(s) with bariatrician and 1 month(s) with dietitian. Video-Visit Details Type of service: Video Visit Video Start Time (time video started): 8:57 am Video End Time (time video stopped): 9:16 am Originating Location (pt. Location): Home Distant Location (provider location): Off-site Mode of Communication: Video Conference via [facility] Physician has received verbal consent for a Video Visit from the patient? Yes Lexy Mcgraw RD CH TEACHER documented in this encounter Plan of Treatment Upcoming Encounters Date Type Department Care Team (Late st Contact Info) Description 07/27/2023 10:00 AM CDT Virtual Visit [facility] [address] [phone] Nasir Cunningham MD [address] [place] [address] documented as of this encounter Visit Diagnoses Diagnosis Type 2 diabetes mellitus with peripheral neuropathy (H)- Primary Class 3 severe obesity due to excess calories with serious comorbidity and body mass index (BMI) of 45.0 to 49.9 in adult (H) Nutritional counseling documented in this encounter Additional Health Concerns Assessment Noted Time PHQ-9 Depression Total Score: 19 023 2:47 PM FRENCH TEACHER documented as of this encounter Care Teams Superintendent Quarry Relationship Specialty Start Date End Date Jennie Coleman APRN SWISS MACHINIST [address] [place] [address] PCP - General Geriatric Medicine 02/10/22 08/15/22 [place](Fgs), [address] [address] 02/10/22 08/15/22 [place] [address] [place] [address] Physical Medicine and Rehabilitation 02/21/22 Samuel Rahman MD 29[address] [facility] [address] [place] [address] Assigned Heart and Vascular Provider 04/02/22 Saba Pan MD 909 [facility] 3rd [place] [address] Assigned Neuroscience Provider 06/11/22 01/06/23 documented as of this encounter
--- OUTSIDE RECORDS SUMMARY | 2023-05-23 21:00 | XMS_ITS | Encounter Summary ---
Author Name Unknown Organization [facility] Address [address] [place] [address] Care Team Providers Care Help Desk Technician Name Role Phone Rashadjoscarla Jennie TADEO CNP Primary Care Provider + [phone] [place]), [facility] Care Unavailable Saba Pan MD Unavailable [phone] Samuel Rahman MD Unavailable [phone] Rojas Walker PA-C Unavailable [phone] Reason for Visit * Reason Onset Date Comments Erroneous encounter-disregard 06/02/2022 Encounter Details Date Type Department Care Team (Late st Contact Info) Description 06/02/2022 Telephone [facility] Geriatric Services [address] [place] [phone] Silvio Forman Erroneous encounter-disregard Social History Tobacco Use Types Packs/Day Years Used Date Smoking Tobacco: Former Smokeless Tobacco: Never Comments:Smoked about 1/2 pp d for maybe 5 years quitting over 10 years ago (as of 2022) Alcohol Use Standard Drinks/Week Comments Not Currently 0 (1 standard drink = 0.6 oz pur e alcohol) PHQ-2 Answer Date Recorded PHQ-2 Score 4 03/01/2022 Sex and Gender Information Value Date Recorded Sex Assigned at Not on file Gender Identity Not on file Sexual Orientation Not on file COVID-19 Exposure Response Date Recorded In the last 10 days, have yo u been in contact with someone who was confirmed or suspected to have Coronavirus/COVID-19? Unable to assess 05/13/2022 7:40 AM CITIZEN PARTICIPATION SPECIALIST documented as of this encounter Plan of Treatment Upcoming Encounters Date Type Department Care Team (Late st Contact Info) Description 07/27/2023 10:00 AM CDT Virtual Visit [facility] [place] [address] [facility] [address] [place] [phone] Nasir Cunningham MD 2945 [facility] 200 [place] [address] documented as of this encounter Visit Diagnoses Not on filedocumented in this encounter Additional Health Concerns Assessment Noted Time PHQ-9 Depression Total Score: 18 022 2:18 PM CITIZEN PARTICIPATION SPECIALIST documented as of this encounter Care Teams Help Desk Technician Relationship Specialty Start Date End Date Jennie Coleman APRN CNP [address] [place] [address] PCP - General Geriatric Medicine 02/10/22 08/15/22 [place](Fgs)[facility] [address] [place] [phone] 02/10/22 08/15/22 [place] [address] [place] [phone] Physical Medicine and Rehabilitation 02/21/22 Samuel Rahman MD 2945 [facility] [address] [place] [address] Assigned Heart and Vascular Provider 04/02/22 Rojas Walker PA-C 6363 [facility] 103 [place] [address] Assigned Neuroscience Provider 05/21/22 06/10/22 documented as of this encounter
--- OUTSIDE RECORDS SUMMARY | 2023-05-23 21:00 | XMS_ITS | Encounter Summary ---
Author Name Unknown Organization [facility] Address [address] [place] [address] Care Team Providers Care Cyber Operator Name Role Phone Jennie Coleman APRN, CNP Primary Care Provider + [place]([facility]), [facility] Unavailable Saba Pan MD Unavailable + 3 Saba Pan MD Unavailable + 3 Samuel Rahman MD Unavailable +[phone] Rojas Walker PA-C Unavailable +[phone] Saba Pan MD Unavailable + 3 Bolivar Tierney DPM Unavailable +[phone] Jennie Coleman APRN, CNP Unavailable + Lety Baldwin Primary Care Provider +[phone] Rojas Walker PA-C Unavailable + [phone] Jennie Coleman APRN, CNP Unavailable + Encounter Details Date Type Department Care Team (Late st Contact Info) Description 05/13/2022 MyC Medical Advice [facility] Scheduling [address] [place] [phone] Maribell Danielle Social History Tobacco Use Types Packs/Day Years [...] Coronavirus/COVID-19? Unable to assess 05/13/2022 7:40 AM WATER QUALITY TESTER documented as of this encounter Plan of Treatment Upcoming Encounters Date Type Department Care Team (Late st Contact Info) Description 07/27/2023 10:00 AM CDT Virtual Visit [facility] Care [address] [phone] Nasir Cunningham MD [address] [place] [phone] documented as of this encounter Visit Diagnoses Not on filedocumented in this encounter Additional Health Concerns Assessment Noted Time PHQ-9 Depression Total Score: 18 022 2:18 PM WATER QUALITY TESTER documented as of this encounter Care Teams Cyber Operator Relationship Specialty Start Date End Date Jennie Coleman APRN CNP [address] [place] [address] PCP - General Geriatric Medicine 02/10/22 08/15/22 Lety Baldwin PA [address] [place] [address] PCP - General Family Practice 10/10/22 [place] [id number] [place] [phone] 02/10/22 08/15/22 Saba Pan MD [address] [place] [phone] Physical Medicine and Rehabilitation 02/21/22 Saba Pan MD [address] [place] [address] Assigned Neuroscience Provider 03/05/22 05/20/22 Samuel Rahman MD [address] [place] [address] Assigned Heart and Vascular Provider 04/02/22 Rojas Walker PA-C [address] [employer] [address] [place] [address] Assigned Neuroscience Provider 05/21/22 06/10/22 Saba Pan MD [address] [place] [address] Assigned Neuroscience Provider 06/11/22 01/06/23 Bolivar Tierney DPM [address] [place] [address] Assigned Surgical Provider 07/09/22 Jennie Coleman APRN USER INTERFACE ENGINEER [address] [place] [address] Assigned Pain Medication Provider 08/13/22 02/10/23 Rojas Walker PA-C [facility] [facility] [address] [place] [address] Assigned Neuroscience Provider 01/07/23 Jennie Coleman APRN USER INTERFACE ENGINEER 1700 [place] [address] Assigned PCP 05/11/23 documented as of this encounter
--- OUTSIDE RECORDS SUMMARY | 2023-05-23 21:00 | XMS_ITS | Encounter Summary ---
Author Name Unknown Organization [place] Address [address] [place] [address] Care Team Providers Care Manager Gyn Name Role Phone Jennie Coleman APRN, CNP Primary Care Provider + [place]([facility]), [facility] Unavailable Saba Pan MD Unavailable + 3 Samuel Rahman MD Unavailable +[phone] Saba Pan MD Unavailable + 34 Bolivar Tierney DPM Unavailable +[phone] Jennie Coleman APRN, CNP Unavailable + Lety Baldwin Primary Care Provider +[phone] Rojas Walker PA-C Unavailable +[phone] Jennie Coleman APRN, CNP Unavailable + Encounter Details Date Type Department Care Team (Late st Contact Info) Description 06/16/2022 [facility] [place] [address] [place] [phone] Rojas Walker PA-C [address] [id number] Social History Tobacco Use Types Packs/Day Years [...] Coronavirus/COVID-19? No / Unsure 06/17/2022 1:28 PM SEWER HAND documented as of this encounter Miscellaneous Notes * Telephone Encounter - Saba Bustillos - 07/18/2022 11:04 AM CDT Pt was called to reschedule psg that he missed on 07/11. LVM for them to call back documented in this encounter Plan of Treatment Upcoming Encounters Date Type Department Care Team (Late st Contact Info) Description 07/27/2023 10:00 AM CDT Virtual Visit [facility] [address] [phone] Nasir Cunningham MD [address] [place] [phone] documented as of this encounter Visit Diagnoses Not on filedocumented in this encounter Additional Health Concerns Assessment Noted Time PHQ-9 Depression Total Score: 19 023 2:47 PM SEWER HAND documented as of this encounter Care Teams Manager Gyn Relationship Specialty Start Date End Date Jennie Coleman APRN CARDIOLOGY CLINICAL CONSULTANT [address] [place] [address] PCP - General Geriatric Medicine 02/10/22 08/15/22 Lety Baldwin PA [address] [place] [address] PCP - General Family Practice 10/10/22 [place]([facility]), [facility] [address] [place] [phone] 02/10/22 08/15/22 [place] [address] [place] [phone] Physical Medicine and Rehabilitation 02/21/22 [place] [address] [place] [address] [address] [address] Assigned Heart and Vascular Provider 04/02/22 Saba Pan MD 909 [facility] 3rd Floor [place], [place] [address] Assigned Neuroscience Provider 06/11/22 01/06/23 Bolivar Tierney DPM [address] [place] [address] [place] [address] Assigned Surgical Provider 07/09/22 Jennie Coleman APRN CARDIOLOGY CLINICAL CONSULTANT [address] [place] [address] Assigned Pain Medication Provider 08/13/22 02/10/23 Rojas Walker PA-C 6363 [facility] [address] [address] Assigned Neuroscience Provider 01/07/23 Jennie Coleman APRN CARDIOLOGY CLINICAL CONSULTANT [address] [place] [address] Assigned PCP 05/11/23 documented as of this encounter
--- OUTSIDE RECORDS SUMMARY | 2023-05-23 21:00 | XMS_ITS | Encounter Summary ---
Author Name Unknown Organization [place] Address [address] [place] [address] Care Team Providers Care Microsoft Architect Name Role Phone Jennie Coleman APRN, CNP Primary Care Provider + [place](Fgs)[facility] Unavailable Saba Pan MD Unavailable + 3 Saba Pan MD Unavailable + 3 Samuel Rahman MD Unavailable +[phone] Rojas Walker PA-C Unavailable +[phone] Saba Pan MD Unavailable + 3 oBlivar Tierney DPM Unavailable +[phone] Jennie Coleman APRN, CNP Unavailable + Lety Baldwin Primary Care Provider +[phone] Rojas Walker PA-C Unavailable + [phone] Jennie Coleman APRN, CNP Unavailable + Reason for Visit * Reason Comments Medication Refill Encounter Details Date Type Department Care Team (Late st Contact Info) Description 04/13/2022 Refill [facility] [address] [place] [phone] Jennie Coleman APRN CNP [address] [place] [address] Medication Refill Social History Tobacco Use Types Packs/Day Years Used Date Smoking Tobacco: Former Smokeless Tobacco: Never Alcohol Use Standard Drinks/Week Comments Not Currently [...] suspected to have Coronavirus/COVID-19? Unable to assess 04/15/2022 7:29 AM EXPERIMENTAL BOX TESTER documented as of this encounter Plan of Treatment Upcoming Encounters Date Type Department Care Team (Late st Contact Info) Description 07/27/2023 10:00 AM CDT Virtual Visit [facility] [address] [phone] Nasir Cunningham MD [address] [place] [phone] documented as of this encounter Visit Diagnoses Diagnosis Bilateral lower extremity pain documented in this encounter Additional Health Concerns Assessment Noted Time PHQ-9 Depression Total Score: 18 022 2:18 PM EXPERIMENTAL BOX TESTER documented as of this encounter Care Teams Microsoft Architect Relationship Specialty Start Date End Date Jennie Coleman APRN CNP [address] [place] [address] PCP - General Geriatric Medicine 02/10/22 08/15/22 Lety Baldwin PA [address] [place] [address] PCP - General Family Practice 10/10/22 [place](Fgs), [address] [phone] 02/10/22 08/15/22 [place] [address] [place] [phone] Physical Medicine and Rehabilitation 02/21/22 Saba Pan MD [address] [place] [address] Assigned Neuroscience Provider 03/05/22 05/20/22 Samuel Rahman MD [address] [place] [address] Assigned Heart and Vascular Provider 04/02/22 Rojas Walker PA-C [address] [employer] [address] [address] [place] [address] Assigned Neuroscience Provider 05/21/22 06/10/22 Saba Pan MD [address] [place] [address] Assigned Neuroscience Provider 06/11/22 01/06/23 Bolivar Tierney DPM [address] [place] [address] Assigned Surgical Provider 07/09/22 Jennie Coleman APRN EXCHANGE MECHANIC [address] [place] [address] Assigned Pain Medication Provider 08/13/22 02/10/23 Rojas Walker PA-C [address] [place] [address] Assigned Neuroscience Provider 01/07/23 Jennie Coleman APRN EXCHANGE MECHANIC [address] [place] [address] Assigned PCP 05/11/23 documented as of this encounter
--- OUTSIDE RECORDS SUMMARY | 2023-05-23 21:00 | XMS_ITS | Encounter Summary ---
Author Name Unknown Organization [place] Address [address] [place] [address] Care Team Providers Care Telescope Maintenance Name Role Phone Jennie Coleman APRN, CNP Primary Care Provider + [phone] [facility] Unavailable Saba Pan MD Unavailable [phone] Samuel Rahman MD Unavailable [phone] Saba Pan MD Unavailable [phone] Encounter Details Date Type Department Care Team (Late st Contact Info) Description 06/17/2022 3:45 PM SANITATION ASSOCIATE Lab [facility] [address] [place] [address] [place] [phone] Type 2 diabetes mellitus with peripheral neuropathy [...] Coronavirus/COVID-19? No / Unsure 06/17/2022 1:28 PM SANITATION ASSOCIATE documented as of this encounter Plan of Treatment Upcoming Encounters Date Type Department Care Team (Late st Contact Info) Description 07/27/2023 10:00 AM CDT Virtual Visit [facility] [place] [address] [facility] 200 [place] [address] Nasir Cunningham MD [address] [facility] 200 [place] [address] documented as of this encounter Procedures Procedure Name Priority Date/Time Associated Diagnosis Comments ZINC Routine 06/17/2022 3:46 PM SANITATION ASSOCIATE Type 2 diabetes mellitus with peripheral neuropathy (H) VITAMIN D DEFICIENCY SCREENING Routine 06/17/2022 3:46 PM SANITATION ASSOCIATE Type 2 diabetes mellitus with peripheral neuropathy (H) VITAMIN B1 WHOLE BLOOD Routine 3:46 PM SANITATION ASSOCIATE Type 2 diabetes mellitus with peripheral neuropathy (H) TSH Routine 06/17/2022 3:46 PM SANITATION ASSOCIATE Type 2 diabetes mellitus with peripheral neuropathy (H) HEMOGLOBIN A1C Routine 06/17/2022 3:46 PM SANITATION ASSOCIATE Type 2 diabetes mellitus with peripheral neuropathy (H) FOLATE Routine 06/17/2022 3:46 PM SANITATION ASSOCIATE Type 2 diabetes mellitus with peripheral neuropathy (H) COMPREHENSIVE METABOLIC PANEL Routine 06/17/2022 3:46 PM SANITATION ASSOCIATE Type 2 diabetes mellitus with peripheral neuropathy (H) C-PEPTIDE Routine 06/17/2022 3:46 PM SANITATION ASSOCIATE Type 2 diabetes mellitus with peripheral neuropathy (H) VITAMIN B12 Routine 06/17/2022 3:46 PM SANITATION ASSOCIATE Type 2 diabetes mellitus with peripheral neuropathy (H) CBC WITH PLATELETS Routine 06/17/2022 3: 46 PM SANITATION ASSOCIATE Type 2 diabetes mellitus with peripheral neuropathy (H) documented in this encounter Results * (ABNORMAL) C-peptide (06/17/2022 3:46 PM SANITATION ASSOCIATE) C Peptide 9.1(H) 0.9 - 6.9 ng/mL 06/20/2022 12:27 PM SANITATION ASSOCIATE SPECIALTY CORE/PROT/ENDO Blood STRUCTURE OF RIGHT UPPER LIMB / Unknown Venipuncture / Unknown 06/17/2022 3:46 PM SANITATION ASSOCIATE 06/17/2022 3:46 PM SANITATION ASSOCIATE Nasir Cunningham MD LAB - BLOOD ORDERABL ES SPECIALTY CORE/PROT/ENDO Specialty Core/Prot/Endo 500 [facility], [address] [phone] * Zinc (06/17/2022 3:46 PM SANITATION ASSOCIATE) Zinc, Serum/Plasma 76.6 60.0 - 120.0 ug/dL 06/20/2022 3:47 AM SANITATION ASSOCIATE [employer] [facility] Comment: INTERPRETIVE INFORMATION: Zinc, Serum or Plasma Elevated results may be due to skin or collection-related contamination, including the use of a noncertified metal-free collection/transport tube. If contamination concerns exist due to elevated levels of serum/plasma zinc, confirmation with a second specimen collected in a certified metal-free tube is recommended. Circulating zinc concentrations are dependent on albumin status and are depressed with malnutrition. ??Zinc may also be lowered with infection, inflammation, stress, oral contraceptives, and . ??Zinc may be elevated with zinc supplementation or fasting. ??Elevated zinc concentrations may interfere with copper absorption. This test was developed and its performance characteristics determined by [facility]. It has not been cleared or approved by the US Food and Drug Administration. This test was performed in a CLIA certified laboratory and is intended for clinical purposes. Performed By: [facility] [address] [place] [address] [employer] Supervisor: Tremaine Celaya MD, PhD Blood STRUCTURE OF RIGHT UPPER LIMB / Unknown Venipuncture / Unknown 06/17/2022 3:46 PM SANITATION ASSOCIATE 06/17/2022 3:46 PM SANITATION ASSOCIATE Nasir Cunningham MD LAB - BLOOD ORDERABL ES [facility] [address] [place] [address], [facility] [phone] * (ABNORMAL) 25- OH-Vitamin D (06/17/2022 3:46 PM SANITATION ASSOCIATE) Vitamin D, Total (25-Hydroxy) 16(L) 20 - 75 ug/L 06/18/2022 3:19 PM SANITATION ASSOCIATE [facility] SPECIALTY CORE/PROT/ENDO Blood STRUCTURE OF RIGHT UPPER LIMB / Unknown Venipuncture / Unknown 06/17/2022 3:46 PM SANITATION ASSOCIATE 06/17/2022 3:46 PM SANITATION ASSOCIATE Narrative [facility] SPECIALTY CORE/PROT/ENDO - 06/18/2022 3:19 PM SANITATION ASSOCIATE Season, race, dietary intake, and treatment affect the concentration of 74-vdrdrrc-Ifytgwc D. Values may decrease during winter months and increase during summer months. Values 20-29 ug/L may indicate Vitamin D insufficiency and values <20 ug/L may indicate Vitamin D deficiency. Vitamin D determination is routinely performed by an immunoassay specific for 25 hydroxyvitamin D3. ??If an individual is on vitamin D2(ergocalciferol) supplementation, please specify 25 OH vitamin D2 and D3 level determination by LCMSMS test VITD23. Nasir Cunningham MD LAB - BLOOD ORDERABL ES [facility] SPECIALTY CORE/PROT/ENDO Specialty Core/Prot/Endo 500 [facility], Room [address] [place] [address] * TSH (06/17/2022 3:46 PM SANITATION ASSOCIATE) TSH 0.63 0.30 - 4.20 uIU/mL 06/17/2022 8:48 PM SANITATION ASSOCIATE [facility] Blood STRUCTURE OF RIGHT UPPER LIMB / Unknown Venipuncture / Unknown 06/17/2022 3:46 PM SANITATION ASSOCIATE 06/17/2022 3:46 PM SANITATION ASSOCIATE Nasir Cunningham MD LAB - BLOOD ORDERABL ES [facility] 500 [facility], [address] [place] [address], [facility] [phone] * Vitamin B1 whole blood (06/17/2022 3:46 PM SANITATION ASSOCIATE) Vitamin B1 Whole Blood Level 149 70 - 180 nmol/L 06/23/2022 9:12 AM SANITATION ASSOCIATE [facility] Comment: INTERPRETIVE INFORMATION: Vitamin B1, Whole Blood This assay measures the concentration of thiamine diphosphate (TDP), the primary active form of vitamin B1. Approximately 90 percent of vitamin B1 present in whole blood is TDP. Thiamine and thiamine monophosphate, which comprise the remaining 10 percent, are not measured. This test was developed and its performance characteristics determined by [facility]. It has not been cleared or approved by the US Food and Drug Administration. This test was performed in a CLIA certified laboratory and is intended for clinical purposes. Performed By: [facility] [address] [place] [address] [employer] Supervisor: Tremaine Celaya MD, PhD Blood STRUCTURE OF RIGHT UPPER LIMB / Unknown Venipuncture / Unknown 06/17/2022 3:46 PM SANITATION ASSOCIATE 06/17/2022 3:46 PM SANITATION ASSOCIATE Nasir Cunningham MD LAB - BLOOD ORDERABL ES Performing Organization Address [facility]/ZIP Co de Phone Number [facility] [address] [place] [address], [facility] [phone] * (ABNORMAL) Vitamin B12 (06/17/2022 3:46 PM SANITATION ASSOCIATE) Vitamin B12 1,601(H) 232 - 1,245 pg/mL 06/17/2022 8:48 PM SANITATION ASSOCIATE [facility] Blood STRUCTURE OF RIGHT UPPER LIMB / Unknown Venipuncture / Unknown 06/17/2022 3:46 PM SANITATION ASSOCIATE 06/17/2022 3:46 PM SANITATION ASSOCIATE Nasir Cunningham MD LAB - BLOOD ORDERABL ES Performing Organization Address City/[facility]/ZIP Co de Phone Number [facility] 500 [facility], [address] [place] [phone], [facility] [phone] * (ABNORMAL) Hemoglobin A1c (06/17/2022 3:46 PM SANITATION ASSOCIATE) Hemoglobin A1C 7.3(H) 0.0 - 5.6 % 06/17/2022 3:58 PM SANITATION ASSOCIATE [facility] Comment: Normal <5.7% Prediabetes 5.7-6.4% ?? Diabetes 6.5% or higher Note: Adopted from ADA consensus guidelines. Blood STRUCTURE OF RIGHT UPPER LIMB / Unknown Venipuncture / Unknown 06/17/2022 3:46 PM SANITATION ASSOCIATE 06/17/2022 3:46 PM SANITATION ASSOCIATE Nasir Cunningham MD LAB - BLOOD ORDERABL ES Performing Organization Address [facility] Co de Phone Number [facility] [address] * Folate (06/17/2022 3:46 PM SANITATION ASSOCIATE) Pathologist [facility] Folic Acid 10.8 4.6 - 34.8 ng/mL 06/17/2022 7:40 PM SANITATION ASSOCIATE [facility] Blood STRUCTURE OF RIGHT UPPER LIMB / Unknown Venipuncture / Unknown 06/17/2022 3:46 PM SANITATION ASSOCIATE 06/17/2022 3:46 PM SANITATION ASSOCIATE Nasir Cunningham MD LAB - BLOOD ORDERABL ES [facility] 500 [facility], [address] [place] [address], [facility] [phone] * (ABNORMAL) CBC with platelets (06/17/2022 3:46 PM SANITATION ASSOCIATE) WBC Count 13.1(H) 4.0 - 11.0 10e3/uL 06/17/2022 4:11 PM SANITATION ASSOCIATE [facility] RBC Count 4.71 4.40 - 5.90 10e6/uL 06/17/2022 4:11 PM SANITATION ASSOCIATE [facility] Hemoglobin 13.6 13.3 - 17.7 g/dL 06/17/2022 4:11 PM SANITATION ASSOCIATE [facility] Hematocrit 40.4 40.0 - 53.0 % 06/17/2022 4:11 PM SANITATION ASSOCIATE [facility] MCV 86 78 - 100 fL 06/17/2022 4:11 PM SANITATION ASSOCIATE [facility] MCH 28.9 26.5 - 33.0 pg 06/17/2022 4:11 PM SANITATION ASSOCIATE [facility] MCHC 33.7 31.5 - 36.5 g/dL 06/17/2022 4:11 PM SANITATION ASSOCIATE [facility] RDW 12.5 10.0 - 15.0 % 06/17/2022 4:11 PM SANITATION ASSOCIATE [facility] Platelet Count 269 150 - 450 10e3/uL 06/17/2022 4:11 PM SANITATION ASSOCIATE [facility] Blood STRUCTURE OF RIGHT UPPER LIMB / Unknown Venipuncture / Unknown 06/17/2022 3:46 PM SANITATION ASSOCIATE 06/17/2022 3:46 PM SANITATION ASSOCIATE Nasir Cunningham MD LAB - BLOOD ORDERABL ES [facility] [address] * (ABNORMAL) Comprehensive metabolic panel (06/17/2022 3:46 PM SANITATION ASSOCIATE) Sodium 138 136 - 145 mmol/L 06/17/2022 8:48 PM SANITATION ASSOCIATE [facility] Potassium 3.9 3.4 - 5.3 mmol/L 06/17/2022 8:48 PM SANITATION ASSOCIATE [facility] Chloride 101 98 - 107 mmol/L 06/17/2022 8:48 PM SANITATION ASSOCIATE [facility] Carbon Dioxide (CO2) 24 22 - 29 mmol/L 06/17/2022 8:48 PM SANITATION ASSOCIATE [facility] Anion Gap 13 7 - 15 mmol/L 06/17/2022 8:48 PM SANITATION ASSOCIATE [facility] Urea Nitrogen 50.3(H) 6.0 - 20.0 mg/dL 06/17/2022 8:48 PM SANITATION ASSOCIATE [facility] Creatinine 1.35(H) 0.67 - 1.17 mg/dL 06/17/2022 8:48 PM SANITATION ASSOCIATE [facility] Calcium 9.5 8.6 - 10.0 mg/dL 06/17/2022 8:48 PM SANITATION ASSOCIATE [facility] Glucose 150(H) 70 - 99 mg/dL 06/17/2022 8:48 PM SANITATION ASSOCIATE [facility] Alkaline Phosphatase 115 40 - 129 U/L 06/17/2022 8:48 PM SANITATION ASSOCIATE [facility] AST 33 10 - 50 U/L 06/17/2022 8:48 PM SANITATION ASSOCIATE [facility] ALT 28 10 - 50 U/L 06/17/2022 8:48 PM SANITATION ASSOCIATE [facility] Protein Total 7.5 6.4 - 8.3 g/dL 06/17/2022 8:48 PM SANITATION ASSOCIATE [facility] Albumin 4.2 3.5 - 5.2 g/dL 06/17/2022 8:48 PM SANITATION ASSOCIATE [facility] Bilirubin Total 0.3 <=1.2 mg/dL 06/17/2022 8:48 PM SANITATION ASSOCIATE [facility] GFR Estimate 65 >60 mL/min/1.7 3m2 06/17/2022 8:48 PM SANITATION ASSOCIATE [facility] Comment:eGFR calculated 2020 CKD-EPI equation. Blood STRUCTURE OF RIGHT UPPER LIMB / Unknown Venipuncture / Unknown 06/17/2022 3:46 PM SANITATION ASSOCIATE 06/17/2022 3:46 PM SANITATION ASSOCIATE Nasir Cunningham MD LAB - BLOOD ORDERABL ES [facility] 500 [facility], [address] [address] [phone] documented in this encounter Visit Diagnoses Diagnosis Type 2 diabetes mellitus with peripheral neuropathy (H) documented in this encounter Additional Health Concerns Assessment Noted Time PHQ-9 Depression Total Score: 19 023 2:47 PM SANITATION ASSOCIATE documented as of this encounter Care Teams Telescope Maintenance Relationship Specialty Start Date End Date Jennie Coleman APRN SERVICE BAR CASHIER [facility] [place] [address] PCP - General Geriatric Medicine 02/10/22 08/15/22 [facility] [address] [place] [phone] 02/10/22 08/15/22 Saba Pan MD [id number] [place] [phone] Physical Medicine and Rehabilitation 02/21/22 Samuel Rahman MD [id number] [address] [place] [address] Assigned Heart and Vascular Provider 04/02/22 Saba Pan MD 9 [facility] [address]rd [place] [address] Assigned Neuroscience Provider 06/11/22 01/06/23 documented as of this encounter
--- OUTSIDE RECORDS SUMMARY | 2023-05-23 21:00 | XMS_ITS | Encounter Summary ---
Author Name Unknown Organization [place] Address [address] [place] [address] Care Team Providers Care Certified Forklift Operator Name Role Phone Jared Jennie TADEO CNP Primary Care Provider + [phone] [place] Unavailable Saba Pan MD Unavailable [phone] Samuel Rahman MD Unavailable [phone] Saba Pan MD Unavailable [phone] Encounter Details Date Type Department Care Team (Latest Contact Info) Description 06/14/2022 Travel Social History Tobacco Use Types Packs/Day [...] Coronavirus/COVID-19? No / Unsure 06/14/2022 2:27 PM LEATHER CARTRIDGE BELT MAKER documented as of this encounter Plan of Treatment Upcoming Encounters Date Type Department Care Team (Late st Contact Info) Description 07/27/2023 10:00 AM CDT Virtual Visit [facility] [address] [phone] Nasir Cunningham MD [address] [facility] [address] [place], [place] [phone] documented as of this encounter Visit Diagnoses Not on filedocumented in this encounter Additional Health Concerns Assessment Noted Time PHQ-9 Depression Total Score: 19 023 2:47 PM LEATHER CARTRIDGE BELT MAKER documented as of this encounter Care Teams Certified Forklift Operator Relationship Specialty Start Date End Date Jennie Coleman APRN SALES MARKETING MANAGER [address] [place] [address] PCP - General Geriatric Medicine 02/10/22 08/15/22 [place](Fgs)[facility] [address] [place] [phone] 02/10/22 08/15/22 [place] [address] [place] [phone] Physical Medicine and Rehabilitation 02/21/22 Samuel Rahman MD [address] [facility] [address] [place] [address] Assigned Heart and Vascular Provider 04/02/22 Saba Pan MD 9 [facility] 3rd [place] [address] Assigned Neuroscience Provider 06/11/22 01/06/23 documented as of this encounter
--- OUTSIDE RECORDS SUMMARY | 2023-05-23 21:00 | XMS_ITS | Encounter Summary ---
Author Name Unknown Organization [facility] Address [address] [place] [id number] Care Team Providers Care Store Person Name Role Phone Jennie Coleman APRN, CNP Primary Care Provider [phone] [facility] Unavailable Saba Pan MD Unavailable [phone] Samuel Rahman MD Unavailable [phone] Saba Pan MD Unavailable [phone] Reason for Visit * Reason Comments Pain * Consultation (Routine: Next available opening) - Closed Specialty Diagnoses / Procedures Referred By [facility] Referred To Contact Pain Medicine Diagnoses Bilateral lower extremity pain Jennie Coleman APRN SHOE [employer] [address] [place] [address] Referral ID Status Reason Start Date Expiration Date Visits Re quested Visits Authorized [id number] Closed 02/18/2022 02/18/2023 1 1 Encounter Details Date Type Department Care Team (Late st Contact Info) Description 06/14/2022 3:00 PM DOCUMENT PREPARER MICROFILMING Office Visit [facility] [place] [address] [facility] [address] [place], [place] [address] Jennie Coleman APRN SHOE CUTTER [address] [place] [address] [place] [id number] [place], [place] [id number] Bilateral lower extremity pain Social History Tobacco Use Types Packs/Day Years [...] Sign Reading Time Taken Comments Blood Pressure 166/71 06/14/2022 2:43 PM DOCUMENT PREPARER MICROFILMING Pulse 79 06/14/2022 2:43 PM DOCUMENT PREPARER MICROFILMING Temperature - - Respiratory Rate - - Oxygen Saturation 97% 06/14/2022 2:43 PM DOCUMENT PREPARER MICROFILMING Inhaled Oxygen Concentration - - Weight - - Height - - Body Mass Index - - documented in this encounter Patient Instructions * Patient Instructions* Samantha Clark MD - 06/14/2022 3:00 PM DOCUMENT PREPARER MICROFILMING Certification completed for medical cannabis. Continue physical therapy. Recommend after you move to start pool therapy. Consider trying capsaicin to the right foot three times daily. Should do this regularly for at least 2-3 weeks to notice benefit. Agree with evaluation by sleep medicine. Follow up with me as needed Samantha Clark MD [facility] Clinic Number: [phone] Call with any questions about your care and for scheduling assistance. Calls are returned Monday through Monday between 8 AM and 4:30 PM. We usually get back to you within 2 business days depending on the issue/request. If we are prescribing your medications: For opioid medication refills, call the clinic or send a EventVuehart message 7 days in advance. Please include: Name of requested medication Name of the pharmacy. For non-opioid medications, call your pharmacy directly to request a refill. Please allow 3-4 days to be processed. Per [place] State Law: All controlled substance prescriptions must be filled within 30 days of being written. For those controlled substances allowing refills, pickup must occur within 30 days of last fill. We believe regular attendance is mann to your success in our program! Any time you are unable to keep your appointment we ask that you call us at least 24 hours in advance to cancel.This will allow us to offer the appointment time to another patient. Multiple missed appointments may lead to dismissal from the clinic. MENT PREPARER MICROFILMING documented in this encounter Progress Notes * Samantha Clark MD - 06/14/2022 3:00 PM CST [facility] Consultation Date of visit: 06/14/2022 Assessment: Gale Munson is a 47 year old male with a past medical history significant for DM type 2 with neuropathy, obesity, hx of osteomyelitis in right foot, depression, anxiety who presents with complaints of: 1. Bilateral leg pain: pain predominantly in the right foot. Hx of peripheral neuropathy and osteomyelitis in the foot resulting in several toe amputations. In addition to that has developed lymphedema in the leg which has worsened pre- existing pain. 2. Mental Health - the patient's mental health concerns, specifically depression and anxiety, can affect his experience of pain. Plan: The following recommendations were given to the patient. Diagnosis, treatment options, risks, benefits, and alternatives were discussed, and all questions were answered. The patient expressed understanding of the plan for management. I am recommending a multidisciplinary treatment plan to help this patient better manage his pain. This includes: 1. Therapies: Continue PT at living facility. Consider pool therapy after moving back home. 2. Clinical Health Pain Psychologist: Therapy can help reduce physical and psychosocial triggers orreinforcers of pain by adapting thoughts, feelings and behaviors to reduce symptoms and increase quality of life. Evidence indicates that the practice of relaxation, meditation, and mindfulness techniques can significantly affect pain levels and overall well being. Did not discuss today. 3. Diagnostic Studies: none 4. Medication Management: 1. Try capsaicin to right foot TID 2. Certification completed for medical cannabis 3. Do not recommend any increase in current dose of opioids for chronic pain. 5. Further procedures recommended: none 6. Agree with evaluation by sleep medicine 7. Follow up: PRN. Will need to follow up in at least 1 year for medical cannabis re-certification. Reason for consultation: Primary Care Provider is Jennie Coleman. Please see the [facility] [place] health questionnaire which the patient completed and reviewed with me in detail. Gale Munson is a 47 year old male who I was asked to see in consultation by Jennie Coleman. Consultation and Evaluation for: Right leg pain Review of [place] Prescription Monitoring Program (HAND SHAPER): Today I have also reviewed the patient'shistory of controlled substance use, as provided by [place] licensed pharmacies and prescriber dispensers. Review of Electronic Chart: Today I have also reviewed available medical information in the patient's medical record at [facility] ([facility]), including relevant provider notes, laboratory work, and imaging. Chief Complaint: Chief Complaint Patient presents with ??? Pain Pain history: Gale Munson is a 47 year old male who presents for initial evaluation of chief pain complaint of leg pain. He reports he was diagnosed with COVID previously. He is now struggling with having long COVID. Due to this he developed lymphedema in his lower extremities. States worst of the pain is in the right foot. He previously had toe amputations in 2017 secondary to infection related to diabetes. He was managing okay until he developed COVID and developed the lymphedema. He describes the pain as intense, constant. It is a constant 5-6 out of 10 in severity. Aggravated with weightbearing. He has a sleep study scheduled and an appointment with bariatric surgery. Medications: Current pain medications: Tarentum 5 mg TID - H Previous pain medications: Gabapentin Lyrica CBD gummies Has had bad experiences with several different anti-depressants Past Pain Treatments: PT: Yes - at facility right now. Pain psychologist: No Relaxation techniques/biofeedback: No TENs Unit: No Injections: No Self-care: No Surgeries related to pain: No Alternative Therapies: Chiropractic:No Acupuncture: No Other: None Diagnostic tests: None EMG/Testing: NA Past Medical History: Past Medical History: Diagnosis Date ??? Anxiety ??? Depressive disorder ??? Diabetes (H) ??? Hypertension ??? Neuromuscular disorder (H) Past Surgical History: Past Surgical History: Procedure Laterality Date ??? AMPUTATION Right 2nd, 3rd and great toe ??? MYRINGOTOMY, INSERT TUBE BILATERAL, COMBINED in childhood ??? SCROTOPLASTY Medications: Current Outpatient Medications Medication Sig Dispense [...] At Bedtime Hold for blood pressure less [id number] ??? hydrALAZINE (APRESOLINE) 100 MG tablet Take 1 tablet (100 mg) by mouth 3 times daily ??? HYDROcodone-acetaminophen (NORCO) 5-325 MG tablet Take 1 tablet by mouth 3 times daily 90 tablet 0 ??? insulin glargine (LANTUS [...] tablet Take 40 mg by mouth daily Allergies: Allergies Allergen Reactions ??? Penicillins Anaphylaxis Family history: Family History Problem Relation Age of Onset ??? Sleep Apnea Maternal Grandfather ??? 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 Hoping to be able to return towork. Physical Exam: Vitals: 06/14/22 1443 BP: (!) 166/71 Pulse: 79 SpO2: 97% Exam: Constitutional: Well developed, well nourished, appears stated age. HEENT: Head atraumatic, normocephalic. Eyes without conjunctival injection or jaundice. Neck supple. No obvious neck masses. Respiratory: Breathing unlabored on room air Skin: No rash, lesions of exposed skin. Extremities: Edema in BLE Psychiatric/mental status: Alert, without lethargy or stupor. Speech fluent. Appropriate affect. Mood normal. Able to follow commands without difficulty. Musculoskeletal exam: Normal bulk and tone. Neurologic exam: CN: Cranial nerves 2-12 are grossly intact Motor Strength: 5/5 symmetric UE and LE strength Samantha Clark MD [facility] documented in this encounter Plan of Treatment Upcoming Encounters Date Type Department Care Team (Late st Contact Info) Description 07/27/2023 10:00 AM CDT Virtual Visit [facility] [address] [place] [phone] Nasir Cunningham MD [address] [place] [id number] documented as of this encounter Visit Diagnoses Diagnosis Bilateral lower extremity pain documented in this encounter Additional Health Concerns Assessment Noted Time PHQ-9 Depression Total Score: 19 023 2:47 PM DOCUMENT PREPARER MICROFILMING documented as of this encounter Care Teams Store Person Relationship Specialty Start Date End Date Jennie Coleman APRN CNP [address] [place] [address] PCP - General Geriatric Medicine 02/10/22 08/15/22 [facility] [address] [place] [phone] 02/10/22 08/15/22 [place] [address] [place] [phone] Physical Medicine and Rehabilitation 02/21/22 Samuel Rahman MD [address] [facility] [address] [place] [address] Assigned Heart and Vascular Provider 04/02/22 Saba Pan MD [address] [facility] 3rd Floor [place], [place] [id number] Assigned Neuroscience Provider 06/11/22 01/06/23 documented as of this encounter
--- OUTSIDE RECORDS SUMMARY | 2023-05-23 21:00 | XMS_ITS | Encounter Summary ---
Author Name Unknown Organization [facility] Address [address] [place] [id number] Care Team Providers Care [employer] Name Role Phone Jennie Coleman APRN, CNP Primary Care Provider + [phone] [place]([facility]) [facility] Care Unavailable Saba Pan MD Unavailable [phone] Samuel Rahman MD Unavailable [phone] Saba Pan MD Unavailable [phone] Reason for Visit * Reason Comments Weight Management [facility] * Consultation (Routine) - Closed Specialty Diagnoses / Procedures Referred By Chapo hays Referred To Contact Bariatric Diagnoses History of COVID-19 Postviral fatigue syndrome Post-COVID chronic anxiety Post-COVID chronic decreased mobility and endurance 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 Sleep difficulties Morbid obesity (H) Hypertensive renal disease Weakness of both legs Major depressive disorder, recurrent episode, moderate (H) Type 2 diabetes mellitus with peripheral neuropathy (H) Long COVID PAD (peripheral artery disease) (H24) Saba Pan MD [address] [facility] 3rd [place] [address] Nasir Cunningham MD [facility] [address] Referral ID Status Reason Start Date Expiration Date Visits Re quested Visits Authorized [id number] Closed 03/01/2022 03/01/2023 1 1 Encounter Details Date Type Department Care Team (Late st Contact Info) Description 06/17/2022 2:45 PM INSOLE AND OUTSOLE SPLITTER Office Visit [facility] [place] [address] [facility] [address] [place] [phone] Saba Pan MD [address] [facility] [address] [place] [address] Nasir Cunningham MD [address] [facility] [address] [place], [place] [id number] Class 3 severe obesity due to excess calories with serious comorbidity and body mass index (BMI) of 45.0 to 49.9 in adult (H) (Primary Dx); Type 2 diabetes mellitus with peripheral neuropathy (H); History of COVID-19; Post-COVID chronic decreased mobility and endurance; Sleep difficulties; Morbid obesity (H); Hypertensive renal disease; Major depressive disorder, recurrent episode, moderate (H); PAD (peripheral artery disease) (H) Social [...] Coronavirus/COVID-19? No / Unsure 06/17/2022 1:28 PM INSOLE AND OUTSOLE SPLITTER documented as of this encounter Last Filed Vital Signs Vital Sign Reading Time Taken Comments Blood Pressure - - Pulse - - Temperature - - Respiratory Rate - - Oxygen Saturation - - Inhaled Oxygen Concentration - - Weight 150.1 kg (331 lb) 06/17/2022 2:19 PM INSOLE AND OUTSOLE SPLITTER Height 180.3 cm (5' 11) 06/17/2022 2:19 PM INSOLE AND OUTSOLE SPLITTER Body Mass Index 46.17 06/17/2022 2:19 PM INSOLE AND OUTSOLE SPLITTER documented in this encounter Patient Instructions * Patient Instructions* Nasir Cunningham MD - 06/17/2022 2:45 PM INSOLE AND OUTSOLE SPLITTER Plan: Welcome to your weight loss season. The goal is to both improve your diabetes control while losing weight and reduce the risk of progressive vascular disease and organ damage which has already created neuropathy, infection and toe loss. 2. If changing diet well and if Victoza covered, we should be able to reduce the amount of Lantus insulin needed. If morning fasting blood sugars are under 95mg/dl then you can reduce lantus 5 units with the goal of keeping your morning fasting sugars between 95 and 140mg/dl during weight loss season. We'll recheck A1c and cpeptide levels today to see how control has been since s 7.8% reading. 3. Check labs today. 4. Aiming for 28-33 grams of lean protein per meal with meals coming every 4.5-6 hours per day and considering protein drink/snack (see list/samples given) to hit your 90g/day goal right now for leanprotein (max of 120g/day) Your fluid restriction of 64oz/day due to edema should be met each day. 5. If blood pressure well controlled, consider reduction or alternative or stopping Amlodipine given some tendency towards fluid accumulation. 6. If covered, we'll ramp up victoza: start 0.6mg/day for 2 weeks then increase to 1.2mg/day for 2 weeks then increase to 1.8mg/day ongoing if tolerated. Stop if rash/vomiting/severe abdominal pains.This should combine well with your metformin and reduce the amount of lantus needed (see above for guidance or dose reduction if morning sugars are under 95mg/dl). 7. Follow up with director of community center. To start we'll aim for 1550-1700kcal/day with 90 grams of lean proteindaily and 64oz of water daily. 8. Continue PT with goal of getting into pool therapy later this year once clear. 9. Consider an cary like PriceMe It, Flipiture or Stirling Ultracold([employer])pal to find that sweet spot for your weight lossseason. I'd aim for closer to 1700kcal/day for now but you may find that as little as 1550kcal/day may be sustainable if hitting your protein targets/meal timing well. What makes a person succeed with dramatic and sustained weight loss? It's being at the right point in your life where you feel the need to lose the weight, not because anyone told you so but because of a voice inside of you that says, I am ready for this. You're nowat a point where you may be feeling anxious, irritable and when you look in the mirror you do not recognize the person looking back. Your healthy self is buried somewhere in that reflexion and you want to free it again. This is the sort of motivation that leads to success, and it comes from you. Because the only person that can lose that extra weight is you, I like my patients to focus on the mindset of being in Weight Loss Season. This gives you permission to make the changes necessary to be consistent with the diet/activity and behavior changes that lead to successful, healthy weight loss. Nearly any diet plan can work for weight loss, but keeping it healthy and nutrient based to prevent deficiencies/hair loss/fatigue or irritability is vital. If you have a plan you want to try, we'll work with you to make sure no adjustments are needed to keep you healthy through your weight loss season and working with our Bariatric Dieticians you'll be given expert guidance to customize your diet plan to suit your particular needs. If you don't have your own ideas in mind, we are always happy to suggest well researched and validated plans that provide enough food to prevent hunger but still tap into your excess fat reserves and lose weight in a sustainable fashion. There is great evidence that lean protein/healthy fat intake with good fiber intake while minimizing simple starches/carbsproduces reliable/sustainable weight loss in most people. But some feel more connected to an intermittent fasting/fast mimicking or ketogenic diet. These protocols can be hard for many to stick with and that's why we prefer the protein/healthy fat focused diets but if these alternative strategies appeal to you, we can work with you to optimize your knowledge and results with these tools. Losing weight is a temporary commitment, but you need to be All In to have a good weight loss season. To avoid frustration, you have to be willing to be on track 19 out of 20 days or even better than that. But, weight loss season is generally only 4-8 months in length. After that length of time, it can be hard to maintain a negative calorie balance and our brain, motivations and metabolism willusually bring you to a plateau that cannot be broken in this modern world where other commitments start to take priority. That's when we look to stabilize the weight loss you've achieved. If you've reached your goal by that time, fantastic, and job well done. If there is more to go, then after a few months of stabilization, we can usually attack that previous plateau and break into new territory. Because of this time limitation, we want to really get to work right away and get into a sustainable routine DELORIS. One of the best predictors of how much weight you're going to lose throughout the season is how much you lose in the first 6 weeks, so prepare well and jump in with both feet. Occasionally, people may feel like they cannot commit fully to the changes necessary and may want to change one thing at a time and get used to the idea of losing weight. That is OK because that iswhere they are in their life, and they cannot fully commit for any number of reasons. It's part of that internal motivation and they just haven't reached PRIORTY NUMBER ONE status yet. It's possible that what they need is more time to reach that point and I am always willing to work with people that want to dabble, but understand, the amount of success obtained with half measures, is much less than half results. Behavior Change cannot occur until we prepare our minds, bodies and environment for what is to come, action! As you go through your plan, look for things to keep your motivation rolling. The most successful people have a goal or target/reward that they are working towards. Having a reward that celebrates your new fitness, mobility and energy is the best sort because it will encourage you to do well with the weight maintenance phase and care home lifestyle changes that promotes keeping the weight off forthe care home. Usually, getting healthier or improving blood tests or losing weight so your clothes fit better is not as internally motivating as having a tangible reward. A good weight loss seasonreward is one that isn't food based, is affordable, but something special: Something you won't be getting/doing unless you achieve your goal. It???s important to keep to the rule of success: in orderto get the reward, your goal MUST be achieved. Write this reward down, where you can look at it daily and keep it in the front of your mind as you go through your weight loss season and it will help keep you on track. Tools that help change behavior are vital for success. The most studied and most supported tool forweight loss is nothing more than writing down your food and weight every day. Every Day. Accuratelyand completely. When you commit to weight loss season, this information tells you whether you're getting ENOUGH food to fuel your weight loss properly as well as teaches you the interaction between di fferent foods you eat and how your body responds with weight loss. You'll see that sometimes after a heavy workout you don't see the scale move until 2-3 days later. How saltier meals (chili for example) may make you retain water for 4-5 days before you see the weight come off, you'll get used to the mini-plateaus that develop after a good 3-8 lb drop in weight as well as how you break through ifyou keep working the diet as you should. Weight loss is not a linear process, there are mini ups and downs. Learning how your body loses weight and getting comfortable with that is very rewarding. The act of writing words on paper also solidifies your will power and commitment to the season of weight loss and that by itself changes your brain chemistry/appetite, motivation and prepares you for maximal success. Behavior change is all about getting into a new routine. The old habits and routine have to change because without changing the circumstances of how you gained your weight, it's unlikely you'll enjoysatisfying results. If you have snacking habits, like every time you walk through the kitchen you grab a little something, well, that habit has to change and be replaced by a new habit. It can be something as simple as keeping a doodle pad on the counter that you make a few scribbles and then walk through the kitchen having not opened the cupboard, or starting with a glass of water and leaving the kitchen without anything else, or checking your food journal to see how many calories you have left for the day. Boredom is the enemy as are the old habits. Break new ground and try to push those old habits into a deep hole. There are apps/counseling options available that can help with some of the day to day urges/behaviors if you're struggling. One commercial product that does a good job is Noom. Unfortunately, there is a subscription fee. Finally, exercise always helps. While not mandatory to lose weight, every little bit helps and exercise has so many other benefits that to not work it into your plan is to miss out on all the mood, sleep, stress and general health benefits that come from making yourself a little short of breath andsweaty at least 3-4 days out of the week. The metabolism and calorie burn benefits aside, almost mone ry chronic ailment in medicine gets better with proper, aerobic exercise. Allow yourself to start slow and let your body prepare itself to accept harder training 4-[address], but start now and commit to a plan. Whether you have the means to hire a applications trainer, join a gym or just walk out your front door or go down to your basement for a video workout, get into a exercise routine and after3 weeks of at least 3 times a week exercise you should be at a point where you can slowly start ramping up 10% each week to our goal of at least 150-300minutes weekly of aerobic exercise and at leasttwice weekly resistance training/strenghtening with weights/bands or body weight exercises. I am a big fan of modifying the free training plan, Couch to 5k, for almost all of my patients. Just type it into Tag'By or look it up on your smart phone cary store. To modify the plan, you can usethe training plan for whatever aerobic activity you do (bike/treadmill/elliptical/rower/pool/etc). During the jog intervals, you just move a little faster or harder or increase the tension or incline. You use those little intervals to switch up the workout and recruit more muscles and pump the blood a little more and then recover again in the walk intervals by slowing down, decreasing the incline or turning down the tension. 3-4 days a week is not that much to ask and the benefits are enormous. Start slow and develop the base from which you can then build on and reduce the risk of injury.It's much more important 2-4 months from now to be enjoying your exercise then it is to over exert yourself at the start and hurt yourself. Starting slowly allows your body to accept the training better down the road when the exercise becomes crucial for weight maintenance. Without exercise down the road during your maintenance phase, all this hard work you are about to put in can be undone. It usually takes about 100-300 calories a day of exercise to maintain a weight loss and our focus duringweight loss season is to generate the routine/activities and hobbies that make that enjoyable/sustainable. Thanks for taking this first and most important step in your weight loss season. Commit to it and we will cheerlead you all the way to success. When things get tough or off track we'll offer guidanceand analysis and when you reach your goal we'll celebrate your success. In the end, it is all aboutyour success, your health and what you do with it. Nasir Cunningham MD [facility] [phone] Example Meal Plan for a 6305-2219 Calorie Diet: In order to fuel your [...] low in olive oil: 90-100 calories. 5oz Australian Yogurt (Fage plain classic: ~150 emilee) Handful [...] Water Dinner: 325 calories 4oz of fresh, Henderson salmon. Broiled (salt/pepper/dill) for about 8-8.5 minutes [...] your plan execution. 5. Call if problems/concerns. Aldagen is a great tool to stay in [...] supplement or a Hair and Nail multivitamin. LEAN PROTEIN SOURCES Getting 20-30 grams of [...] Portion Calories Grams of Protein Nonfat, plain Australian yogurt (10 grams sugar or less) 3/4 [...] (broiled, grilled, baked) 3 ounces 100 21 Heber/Tuna (broiled, grilled, baked) 3 ounces 150-180 21 Shrimp, Scallops, Lobster, Crab 3 ounces 100 21 Pork loin, Pork Tenderloin 3 ounces 150 21 Boneless, skinless chicken /turkey breast (broiled, grilled, baked) 3 ounces 120 21 [place], [place], Gilliam, and Venison 3 ounces 120 21 Lean cuts of red meat and pork (sirloin, round, tenderloin, flank, ground 93%-96%) 3 ounces 170 21 Lean or Extra Lean Ground Pomeroy 1/2 cup 150 20 90-95% Lean Pomeroy Burger 1 yanna 140-180 21 Low-fat casserole with lean meat 3/4 cup 200 17 Luncheon Meats (turkey, lean ham, roast beef, chicken) 3 ounces 100 21 Egg (boiled, poached, scrambled) 1 Egg 60 7 Egg Substitute 1/2 cup 70 10 Nuts (limit to 1 serving per day) 3 Tbsp. 150 7 Nut Condon (peanut, almond) Limit to 1 serving or less daily 1 Tbsp. 90 4 Soy Burger (varies) 1 90-130 15 Garbanzo, Black, Benjamin Beans 1/2 cup 110 7 Refried Beans 1/2 cup 100 7 Kidney and Rees beans 1/2 cup 110 7 Tempeh 3 oz 175 18 Vegan crumbles 1/2 cup 100 14 Tofu 1/2 cup 110 14 [place] (beans and extra lean beef or turkey) [...] -1 low fat string cheese stick -1 TablesBrandwatchon natural peanut butter -AzureBooker vegetarian sausage yanna (found in freezer section) -1 slice lowfat cheese -6 oz 2% or lowfat Australian yogurt, such as Fage or Oikos. PLUS Whole Grains: Choose??? -1 whole wheat Puerto Rican muffin -1 whole wheat lópez, half -1/2 Fiber One frozen muffin, thawed -1/2 Fiber One toaster pastry -1 whole wheat bagel thin -1/2 cup Kashi cereal -1 Kashi waffle (or other whole grain high-fiber waffle) Aim for whole grain/sprouted breads with at least 3g of fiber/slice if having bread. PSafe is one such brand. OR Fruit: Choose [...] ?? cup shredded cheddar ?? whole grain Puerto Rican muffin 1 oz Davis hendrickson 1 tsp margarine spread Four- 225 [...] Fruit smoothie made with 4 oz. nonfat Australian yogurt, ?? cup berries, 1 scoop protein [...] slice whole grain toast ?? cup nonfat/lowfat Australian yogurt Eight- 250 calories, 18 g protein [...] calories, 20 g protein Grilled ham ???n??? Haitian: spread 2 tsp ghee or butter on 1 slice of whole grain bread. Cut bread in half, layer 2 oz deli ham with 1 piece of Haitian cheese and grill until cheese is melted. [...] oven Nine- 250 calories, 16 g protein Kazakh pizza: one 8?? corn tortilla topped with [...] sugar (less than 10 grams of sugar) indonesian yogurt 3 Tablespoons of hummus with 1 cup sliced santos peppers 2 Tablespoons of hummus with 15 baby carrots 4 Tablespoons ranch dip made with plain Australian Yogurt and 3 mini cucumbers 1/4 cup nuts (any kind) 1 Tablespoon peanut butter with 1 stalk celery 1 dill pickle wrapped in 1-2 slices of deli ham with 1 tsp of mayonnaise/mustard. Exercise Guidance Nearly everything that bothers us gets better when the proper amount of exercise can be done in theproper amounts. Getting to that level safely and without injury is the mann. When it comes to weightloss, exercise is especially important in maintaining the weight loss. Unfortunately, one of the harsh realities is that substantial weight loss slows our metabolism, often anywhere from 5-20%. Our brain always remembers our heaviest weight and we can return to that if we're not mindful and moving regularly. Our biology doesn't understand the concept of having too much energy, only not having enough. As such, when we lose weight, it's thought that the brain interprets this as we're ill erwin a famine and dials back our metabolism to limit further weight loss. This is why exercise is so important in keeping the weight off and is the main reason people have some weight regain from theirlow weight point after weight loss. We have to make up that 10-20% of calories not being burned.Since we can restrict our intake for only so long, exercise becomes very important in our mortgage specialist healthy weigh maintenance to balance out the occasional indiscretion with our diet. Generally, for every 5% body weight reduction in a weight loss season, a person needs to add 90-100kilocalories of exercise in their daily routine to keep that weight off for the care home. This is why it's vital to be starting your fitness regimen during weight loss season, so that routine is well established as you move into your maintenance period. Additionally, all sorts of good enzymes and genes turn on with exercise and our stress, sleep, moodand bodies feel better when we can get to the point of making ourselves a little sweaty and short of breath 35-50 minutes most days of the week. But we have to start with what we can do first and give ourselves permission to work our way up to this goal. Who isn't ready for exercise? Well, if you get severe dizziness/palpitations, chest pain or short of breath/faint with even minimal activity like walking across a room or you're having to pause whilegoing up a flight of stairs, then getting your heart and/or lungs fully evaluated prior to startingan exercise regimen is recommended. Everyone else can probably start a program, but everyone may start at a different point: Some can set a 5-10 minute walking goal and others will be able to ride their bike for an hour. Start with where you're at and look to add 10% more each week until you're at that 150 minutes or more a week (or 75 minutes/week or more of vigorous exercise). Moderate exercise can be estimated as the pace you can carry on a conversation and vigorous is the pace at which you can get 3-5 words outbefore having to take a breath. If you're using heart rate monitoring, Moderate is about 60% of your maximum heart rate and vigorous about 75%. (Max heart rate estimated as 220 beats minus your age: Example: 220-age of 44 =176 Beats per minute (BPM) maximum. 0.6X 176= 105 BPM (moderate), 132 BMP(vigorous)). If you like to count steps, the 10,000 steps per day does correlate well with weight maintenance but try to make at least 20-25% of those steps at a brisk pace (like you are about to miss your bus). Finally, if you are pressed for time, it's important to know that some exercise is better than none. High Intensity Interval training (HIIT) is a good way to get as much out of a short period of working out. If you can't walk, use the stairs, bike or swim; you could use a punching/arm workout regimen for your activity. The idea with HIIT is to have a 3-6 minute warm up period of low intensity andthe 3-6 intervals where you push the intensity up and then recover and start the next interval. One study showed that 3 intervals of 20 seconds at Maximum Effort while either biking on a stationary bike or going up stairs and then having 100 seconds recovery time before the next Maximum Effort was equally as beneficial on cardiovascular fitness development as doing 30 minutes of moderately paced walking 3 days weekly over a 6 week period of time. So intensity matters. You just need to be able to safely do your desired exercise without injury. There are many great HIIT exercises/routines out there. IF you're not doing much exercise currently, I recommend giving your self 2-3 weeks of moderate exercise, 3 days weekly minimum to get your bones/tendons/muscles used to exercise before going for High Intensity workouts. If you like to use Apps on the phone, the couch to 5k cary and 7 minute workout apps are nice placesto start if you are reasonably healthy. There are hundreds of other options out there. Consider viewing ValchemyTube if gentler exercise/movement is desired. Videos on Rosendo Chi and chair yoga for seniors exist and are free. Check them out and let's get that 3-4 days a week routine going. Let's move! Nasir Cunningham MD. LE AND OUTSOLE SPLITTER documented in this encounter Progress Notes * Nasir Cunningham MD - 06/17/2022 2:45 PM CST [facility] Consult PATIENT: Gale Munson : 1975 REVA: 06/17/2022 I had the pleasure of seeing your patient, Gale Munson. Full intake/assessment was done to determine barriers to weight loss success and develop a treatment plan. Gale Munson is a 47 year old male interested in treatment of medical problems associated with excess weight. He has a height of 5' 11, a weight of 331 lbs 0 oz, and the calculated Body mass index is 46.17 kg/m??. 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 He's currently living in a care facility and havingvascular disease/edema managed through vascular clinic with much improved edema over the last 2-3 months on diuretic therapy. He does need aggressive weight loss plan due to his metabolic/vascular disease and debility. Gale Munson uses food as mood management and struggled in his 30s w/ severe depression after his Dad and gained large amounts of weight (over 500 lbs at his maximum weight). He's motivated to get his health back in shape as the past year has had numerous health issues that have scared him and he doesn't want to be as ill as he's been. 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 Review of the patient's history and habits today suggest that weight gain has been lifelong struggle and was in the 200s in his teens. . Previous Interventions found to be helpful in the past for weight loss include improving stress coping. We discussed a toolbox approach to weight management today and he is open to combining mindful, reduced calorie dietary therapy with increased mindfulness techniques, activity/exercise improvements to optimize their current and future health. Medication assistance for appetite control was discussedtoday and on review of the risks/benefits for this patients health history, we've decided to start with appetite suppressant therapy with dual benefit on optimizing his diabetes with GLP1 agonist therapy. Victoza would be a good starting point if affordably covered and we'll look to ramp up therapyto 1.8mg/day over the next 6-8 weeks if tolerated well with downward adjustment in Lantus if his morning fasting sugars start dropping below 95mg/dl. Currently on 19u Lantus. With his current med list he's not a candidate for phentermine therapy, Contrave or topiramate due to drug interaction risks/renal effects or blood pressure effects. ASSESSMENT AND PLAN Problem List Items Addressed This Visit Nervous and Auditory Weakness of both legs Digestive Morbid obesity (H) Relevant Medications liraglutide (VICTOZA) 18 MG/3ML solution Urinary Hypertensive renal disease Behavioral Major depressive disorder, recurrent episode, moderate (H) Other Visit Diagnoses History of COVID-19 Postviral fatigue syndrome Post-COVID chronic anxiety Post-COVID chronic decreased mobility and endurance 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 Sleep difficulties Type 2 diabetes mellitus with peripheral neuropathy (H) Relevant Medications liraglutide (VICTOZA) 18 MG/3ML solution insulin pen needle (31G X 6 MM) 31G X 6 MM miscellaneous Other Relevant Orders Comprehensive metabolic panel CBC with platelets Folate Hemoglobin A1c Vitamin B12 Vitamin B1 whole blood TSH 25- OH-Vitamin D Zinc C-peptide Long COVID PAD (peripheral artery disease) (H) Plan: 1. Welcome to your weight loss season. The goal is to both improve your diabetes control while losing weight and reduce the risk of progressive vascular disease and organ damage which has already created neuropathy, infection and toe loss. 2. If changing diet well and if Victoza covered, we should be able to reduce the amount of Lantus insulin needed. If morning fasting blood sugars are under 95mg/dl then you can reduce lantus 5 units with the goal of keeping your morning fasting sugars between 95 and 140mg/dl during weight loss season. We'll recheck A1c and cpeptide levels today to see how control has been since December's 7.8% reading. 3. Check labs today. 4. Aiming for 28-33 grams of lean protein per meal with meals coming every 4.5-6 hours per day and considering protein drink/snack (see list/samples given) to hit your 90g/day goal right now for leanprotein (max of 120g/day) Your fluid restriction of 64oz/day due to edema should be met each day. 5. If blood pressure well controlled, consider reduction or alternative or stopping Amlodipine given some tendency towards fluid accumulation. 6. If covered, we'll ramp up victoza: start 0.6mg/day for 2 weeks then increase to 1.2mg/day for 2 weeks then increase to 1.8mg/day ongoing if tolerated. Stop if rash/vomiting/severe abdominal pains.This should combine well with your metformin and reduce the amount of lantus needed (see above for guidance or dose reduction if morning sugars are under 95mg/dl). 7. Follow up with director of community center. To start we'll aim for 1550-1700kcal/day with 90 grams of lean proteindaily and 64oz of water daily. 8. Continue PT with goal of getting into pool therapy later this year once clear. 9. Consider an cary like PriceMe It, Flipiture or Stirling Ultr[employer])pal to find that sweet spot for your weight lossseason. I'd aim for closer to 1700kcal/day for now but you may find that as little as 1550kcal/day may be sustainable if hitting your protein targets/meal timing well. 10. Follow up sleep study as planned this Spring, sooner the better and higher risk for JOHN. 60 minutes spent on the date of the encounter doing chart review, history and exam, documentation and further activities per the note He has the following co-morbidities: Day of visit, he's not completed questionnaires on chart review. No flowsheet data found. 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 Diabetes poorly controlled and lost 2-3 toes from poor control in the past. Had hard COVID illness last year and now wants to live. Down from 390s end of 2021 (fluid retention/edema issues and better now). Down from heaviest weight of over 500 lbs back in 2008 after his Dad and went into severe depression and gained a lot of weight. In the past would react against rude comments and eat even more. Living in Care Center currently, will be getting disability/Soc Security soon and getting into his own place soon. Balance affected by loss of toes and edema through off even more but now can depend on wheelchair due to imbalance. Pain specialist planning to refer for pool therapy in the near future and is currently working PT in care facility. Long standing diabetes but no insulin therapy until this past year. Good about taking. Reviewed toolbox approach today and open to all tools. No flowsheet data found. No flowsheet data found. No flowsheet data found. No flowsheet data found. No flowsheet data found. No flowsheet data found. No flowsheet data found. PAST MEDICAL HISTORY: Past Medical History: Diagnosis Date ??? Anxiety ??? Depressive disorder ??? Diabetes (H) ??? Hypertension ??? Neuromuscular disorder (H) No flowsheet data found. No flowsheet data found. No flowsheet data found. Past Surgical History: Procedure Laterality Date ??? AMPUTATION Right 2nd, 3rd and great toe ??? MYRINGOTOMY, INSERT TUBE BILATERAL, COMBINED in childhood ??? SCROTOPLASTY Social History Socioeconomic History ??? Marital status: [...] on file Housing Stability: Not on file MEDICATIONS: Current Outpatient Medications Medication Sig Dispense Refill ??? insulin pen needle (31G X 6 MM) 31G X 6 MM miscellaneous Use new pen needle for each autoinjection. 90 each 1 ??? liraglutide (VICTOZA) 18 MG/3ML solution Start 0.6mg injected once daily for 2 weeks then increase to 1.2mg/day for 2 weeks then increase to 1.8mg/day if tolerated. 15 mL 3 ??? acetaminophen (TYLENOL) 325 MG tablet Take [...] At Bedtime Hold for blood pressure less [id number] ??? hydrALAZINE (APRESOLINE) 100 MG tablet Take [...] tablet Take 40 mg by mouth daily ALLERGIES: Allergies Allergen Reactions ??? Penicillins Anaphylaxis Lab Results Component Value Date A1C 7.8 12/21/2021 A1C 6.9 11/18/2008 A1C 9.0 10/21/2008 Recent Labs Lab Test 01/04/22 0924 CHOL 145 HDL 33* LDL 89 TRIG 114 Last Comprehensive Metabolic Panel: Sodium Date Value [...] 12/23/2021 6 5 - 18 mmol/L Final Glucose Date Value Ref Range Status [...] includes age and gender (Tor et al., [place], DOI: 10.[facility]6/[id number]) 01/03/2019 >60 >60 mL/min/1.73m2 Final Calcium Date [...] 01/31/2022 21 10 - 50 U/L Final B12 noted to be absent/undetectable on 01/07/22 labs (<150pg/ml on chart review likely related to decreased absorption on metformin therapy). Supplementation has regular since and we'll recheck levels today.. ECHO on 12/21/21 as noted below: Interpretation Summary Technically difficult study. Definity contrast utilized. Normal [...] pressure estimated at 15 mmHg or greater PSG referral placed by PCP April of 2022, not yet completed, he is contemplative. PHYSICAL EXAM: Objective Ht 1.803 m (5' 11) Wt (!) 150.1 kg (331 lb) BMI 46.17 kg/m?? Ht 1.803 m (5' 11) Wt (!) 150.1 kg (331 lb) BMI 46.17 kg/m?? Body mass index is 46.17 kg/m??. Physical Exam GENERAL: appearing male, seated in wheelchair. Emotional and tearful at times as he detailshis weight history and desire to improve his health this year. NECK: no adenopathy, no asymmetry, masses, or scars and thyroid normal to palpation No cough/dyspnea. ABDOMEN: soft, nontender, no hepatosplenomegaly, no masses and bowel sounds normal MS: no compression currently on. Loose leg skin c/w improving edema. No pallor or jaundice evident. Normal cognition/speech. Sincerely, Nasir Cunningham MD LE AND OUTSOLE SPLITTER documented in this encounter Plan of Treatment Upcoming Encounters Date Type Department Care Team (Late st Contact Info) Description 07/27/2023 10:00 AM CDT Virtual Visit [facility] [place] [address] [place] [address] [address] [place] [phone] Nasir Cunningham MD [address] [place] [address] [address] [place] [address] documented as of this encounter Results * (ABNORMAL) C-peptide (06/17/2022 3:46 PM INSOLE AND OUTSOLE SPLITTER) C Peptide 9.1(H) 0.9 - 6.9 ng/mL 06/20/2022 12:27 PM INSOLE AND OUTSOLE SPLITTER SPECIALTY CORE/PROT/ENDO Blood STRUCTURE OF RIGHT UPPER LIMB / Unknown Venipuncture / Unknown 06/17/2022 3:46 PM INSOLE AND OUTSOLE SPLITTER 06/17/2022 3:46 PM INSOLE AND OUTSOLE SPLITTER Nasir Cunningham MD LAB - BLOOD ORDERABL ES UM SPECIALTY CORE/PROT/ENDO UM Specialty Core/Prot/Endo [address] [facility], Room [address] [phone] * Zinc (06/17/2022 3:46 PM INSOLE AND OUTSOLE SPLITTER) Zinc, Serum/Plasma 76.6 60.0 - 120.0 ug/dL 06/20/2022 3:47 AM INSOLE AND OUTSOLE SPLITTER [facility] Comment: INTERPRETIVE INFORMATION: Zinc, Serum or Plasma [...] developed and its performance characteristics determined by [facility]. It has not been cleared or approved by the US Food and Drug Administration. This test was performed in a CLIA certified laboratory and is intended for clinical purposes. Performed By: [facility] [address] [place] [address] Industrial Green Systems Designer: Tremaine Celaya MD, PhD Blood STRUCTURE OF RIGHT UPPER LIMB / Unknown Venipuncture / Unknown 06/17/2022 3:46 PM INSOLE AND OUTSOLE SPLITTER 06/17/2022 3:46 PM INSOLE AND OUTSOLE SPLITTER Nasir Cunningham MD LAB - BLOOD ORDERABL ES [facility] [address] [place] [phone], [facility] [phone] * (ABNORMAL) 25- OH-Vitamin D (06/17/2022 3:46 PM INSOLE AND OUTSOLE SPLITTER) Vitamin D, Total (25-Hydroxy) 16(L) 20 - 75 ug/L 06/18/2022 3:19 PM INSOLE AND OUTSOLE SPLITTER SPECIALTY CORE/PROT/ENDO Blood STRUCTURE OF RIGHT UPPER LIMB / Unknown Venipuncture / Unknown 06/17/2022 3:46 PM INSOLE AND OUTSOLE SPLITTER 06/17/2022 3:46 PM INSOLE AND OUTSOLE SPLITTER Narrative SPECIALTY CORE/PROT/ENDO - 06/18/2022 3:19 PM INSOLE AND OUTSOLE SPLITTER Season, race, dietary intake, and treatment affect the concentration of 13-pkfhfal-Vjnlexd D. Values may decrease during winter months [...] ORDERABL ES SPECIALTY CORE/PROT/ENDO Specialty Core/Prot/Endo 500 [facility], Room [address] [phone] * TSH (06/17/2022 3:46 PM INSOLE AND OUTSOLE SPLITTER) TSH 0.63 0.30 - 4.20 uIU/mL 06/17/2022 8:48 PM INSOLE AND OUTSOLE SPLITTER U LABORATORY Blood STRUCTURE OF RIGHT UPPER LIMB / Unknown Venipuncture / Unknown 06/17/2022 3:46 PM INSOLE AND OUTSOLE SPLITTER 06/17/2022 3:46 PM INSOLE AND OUTSOLE SPLITTER Nasir Cunningham MD LAB - BLOOD ORDERABL ES UU LABORATORY [facility] 500 [facility], [address] [phone] [phone] * Vitamin B1 whole blood (06/17/2022 3:46 PM INSOLE AND OUTSOLE SPLITTER) Vitamin B1 Whole Blood Level 149 70 - 180 nmol/L 06/23/2022 9:12 AM INSOLE AND OUTSOLE SPLITTER [facility] Comment: INTERPRETIVE INFORMATION: Vitamin B1, Whole Blood This assay measures the concentration of thiamine diphosphate (TDP), the primary active form of vitamin B1. Approximately 90 percent of vitamin B1 present in whole blood is TDP. Thiamine and thiamine monophosphate, which comprise the remaining 10 percent, are not measured. This test was developed and its performance characteristics determined by [facility]. It has not been cleared or approved by the US Food and Drug Administration. This test was performed in a CLIA certified laboratory and is intended for clinical purposes. Performed By: [facility] [address] [place] [address] Industrial Green Systems Designer: Tremaine Celaya MD, PhD Blood STRUCTURE OF RIGHT UPPER LIMB / Unknown Venipuncture / Unknown 06/17/2022 3:46 PM INSOLE AND OUTSOLE SPLITTER 06/17/2022 3:46 PM INSOLE AND OUTSOLE SPLITTER Nasir Cunningham MD LAB - BLOOD ORDERABL ES Performing Organization Address City/[facility]/ZIP Co de Phone Number [employer] [employer] [facility] [address] [place] [address], [facility] [phone] * (ABNORMAL) Vitamin B12 (06/17/2022 3:46 PM INSOLE AND OUTSOLE SPLITTER) Vitamin B12 1,601(H) 232 - 1,245 pg/mL 06/17/2022 8:48 PM INSOLE AND OUTSOLE SPLITTER [facility]ORY Blood STRUCTURE OF RIGHT UPPER LIMB / Unknown Venipuncture / Unknown 06/17/2022 3:46 PM INSOLE AND OUTSOLE SPLITTER 06/17/2022 3:46 PM INSOLE AND OUTSOLE SPLITTER Nasir Cunningham MD LAB - BLOOD ORDERABL ES [facility] [address] [facility], [address] [phone], [facility] [phone] * (ABNORMAL) Hemoglobin A1c (06/17/2022 3:46 PM INSOLE AND OUTSOLE SPLITTER) Hemoglobin A1C 7.3(H) 0.0 - 5.6 % 06/17/2022 3:58 PM INSOLE AND OUTSOLE SPLITTER [facility] Comment: Normal <5.7% Prediabetes 5.7-6.4% ?? Diabetes 6.5% or higher Note: Adopted from ADA consensus guidelines. Blood STRUCTURE OF RIGHT UPPER LIMB / Unknown Venipuncture / Unknown 06/17/2022 3:46 PM INSOLE AND OUTSOLE SPLITTER 06/17/2022 3:46 PM INSOLE AND OUTSOLE SPLITTER Nasir Cunningham MD LAB - BLOOD ORDERABL ES [facility] [address] * Folate (06/17/2022 3:46 PM INSOLE AND OUTSOLE SPLITTER) Folic Acid 10.8 4.6 - 34.8 ng/mL 06/17/2022 7:40 PM INSOLE AND OUTSOLE SPLITTER [facility] Blood STRUCTURE OF RIGHT UPPER LIMB / Unknown Venipuncture / Unknown 06/17/2022 3:46 PM INSOLE AND OUTSOLE SPLITTER 06/17/2022 3:46 PM INSOLE AND OUTSOLE SPLITTER Nasir Cunningham MD LAB - BLOOD ORDERABL ES [facility] [address] [facility], [address] [phone] [phone] * (ABNORMAL) CBC with platelets (06/17/2022 3:46 PM INSOLE AND OUTSOLE SPLITTER) Pathologist [facility] WBC Count 13.1(H) 4.0 - 11.0 10e3/uL 06/17/2022 4:11 PM INSOLE AND OUTSOLE SPLITTER [facility] RBC Count 4.71 4.40 - 5.90 10e6/uL 06/17/2022 4:11 PM INSOLE AND OUTSOLE SPLITTER [facility] Hemoglobin 13.6 13.3 - 17.7 g/dL 06/17/2022 4:11 PM INSOLE AND OUTSOLE SPLITTER [facility] Hematocrit 40.4 40.0 - 53.0 % 06/17/2022 4:11 PM INSOLE AND OUTSOLE SPLITTER [facility] MCV 86 78 - 100 fL 06/17/2022 4:11 PM INSOLE AND OUTSOLE SPLITTER [facility] MCH 28.9 26.5 - 33.0 pg 06/17/2022 4:11 PM INSOLE AND OUTSOLE SPLITTER [facility] MCHC 33.7 31.5 - 36.5 g/dL 06/17/2022 4:11 PM INSOLE AND OUTSOLE SPLITTER [facility] RDW 12.5 10.0 - 15.0 % 06/17/2022 4:11 PM INSOLE AND OUTSOLE SPLITTER [facility] Platelet Count 269 150 - 450 10e3/uL 06/17/2022 4:11 PM INSOLE AND OUTSOLE SPLITTER [facility] Blood STRUCTURE OF RIGHT UPPER LIMB / Unknown Venipuncture / Unknown 06/17/2022 3:46 PM INSOLE AND OUTSOLE SPLITTER 06/17/2022 3:46 PM INSOLE AND OUTSOLE SPLITTER Nasir Cunningham MD LAB - BLOOD ORDERABL ES [facility] [address] * (ABNORMAL) Comprehensive metabolic panel (06/17/2022 3:46 PM INSOLE AND OUTSOLE SPLITTER) Sodium 138 136 - 145 mmol/L 06/17/2022 8:48 PM INSOLE AND OUTSOLE SPLITTER [facility] Potassium 3.9 3.4 - 5.3 mmol/L 06/17/2022 8:48 PM INSOLE AND OUTSOLE SPLITTER [facility] Chloride 101 98 - 107 mmol/L 06/17/2022 8:48 PM INSOLE AND OUTSOLE SPLITTER [facility] Carbon Dioxide (CO2) 24 22 - 29 mmol/L 06/17/2022 8:48 PM INSOLE AND OUTSOLE SPLITTER [facility] Anion Gap 13 7 - 15 mmol/L 06/17/2022 8:48 PM INSOLE AND OUTSOLE SPLITTER [facility] Urea Nitrogen 50.3(H) 6.0 - 20.0 mg/dL 06/17/2022 8:48 PM INSOLE AND OUTSOLE SPLITTER [facility] Creatinine 1.35(H) 0.67 - 1.17 mg/dL 06/17/2022 8:48 PM INSOLE AND OUTSOLE SPLITTER [facility] Calcium 9.5 8.6 - 10.0 mg/dL 06/17/2022 8:48 PM INSOLE AND OUTSOLE SPLITTER [facility] Glucose 150(H) 70 - 99 mg/dL 06/17/2022 8:48 PM INSOLE AND OUTSOLE SPLITTER [facility] Alkaline Phosphatase 115 40 - 129 U/L 06/17/2022 8:48 PM INSOLE AND OUTSOLE SPLITTER [facility] AST 33 10 - 50 U/L 06/17/2022 8:48 PM INSOLE AND OUTSOLE SPLITTER [facility] ALT 28 10 - 50 U/L 06/17/2022 8:48 PM INSOLE AND OUTSOLE SPLITTER [facility] Protein Total 7.5 6.4 - 8.3 g/dL 06/17/2022 8:48 PM INSOLE AND OUTSOLE SPLITTER [facility] Albumin 4.2 3.5 - 5.2 g/dL 06/17/2022 8:48 PM INSOLE AND OUTSOLE SPLITTER [facility] Bilirubin Total 0.3 <=1.2 mg/dL 06/17/2022 8:48 PM INSOLE AND OUTSOLE SPLITTER [facility] GFR Estimate 65 >60 mL/min/1.7 3m2 06/17/2022 8:48 PM INSOLE AND OUTSOLE SPLITTER [facility] Comment:eGFR calculated us2020 CKD-EPI equation. Blood STRUCTURE OF RIGHT UPPER LIMB / Unknown Venipuncture / Unknown 06/17/2022 3:46 PM INSOLE AND OUTSOLE SPLITTER 06/17/2022 3:46 PM INSOLE AND OUTSOLE SPLITTER Nasir Cunningham MD LAB - BLOOD ORDERABL ES [facility] LAB[facility] [address] [facility], [address] [place] [address], [facility] [phone] documented in this encounter Visit Diagnoses Diagnosis Class 3 severe obesity due to excess calories with serious comorbidity and body mass index (BMI) of 45.0 to 49.9 in adult (H)- Primary Type 2 diabetes mellitus with peripheral neuropathy (H) History of COVID-19 Post-COVID chronic decreased mobility and endurance Sleep difficulties Sleep disturbance, unspecified Morbid obesity (H) Morbid obesity Hypertensive renal disease Unspecified hypertensive kidney disease with chronic kidney disease stage I through stage IV, or unspecified Major depressive disorder, recurrent episode, moderate (H) Major depressive disorder, recurrent episode, moderate PAD (peripheral artery disease) (H24) Unspecified disorders of arteries and arterioles documented in this encounter Additional Health Concerns Assessment Noted Time PHQ-9 Depression Total Score: 19 023 2:47 PM INSOLE AND OUTSOLE SPLITTER documented as of this encounter Care Teams Prototype Assembler Electronics Relationship Specialty Start Date End Date Jennie Coleman APRN [facility] [address] [place] [address] PCP - General Geriatric Medicine 02/10/22 08/15/22 [facility]), [address] [phone] 02/10/22 08/15/22 [place] [address] [place] [phone] Physical Medicine and Rehabilitation 02/21/22 Samuel Rahman MD [address] [facility] [address] [place] [address] Assigned Heart and Vascular Provider 04/02/22 Saba Pan MD [address] [facility] 3rd [place] [address] Assigned Neuroscience Provider 06/11/22 01/06/23 documented as of this encounter
--- OUTSIDE RECORDS SUMMARY | 2023-05-23 21:00 | XMS_ITS | Encounter Summary ---
Author Name Unknown Organization [facility] Address [address] [place] [address] Care Team Providers Care Bag Grader Name Role Phone Kenancarla Jennie TADEO CNP Primary Care Provider + [phone] [facility]) [facility] ([place], [place]) Care Unavailable Saba Pan MD Unavailable [phone] Samuel Rahman MD Unavailable [phone] Saba Pan MD Unavailable [phone] Reason for Visit * Reason Onset Date Comments Medication Request 06/16/2022 Sleep medicin e for sleep study 07/11/2022 Encounter Details Date Type Department Care Team (Late st Contact Info) Description 06/16/2022 Telephone [facility] [address] [phone] Rojas Walker PA-C [address] [place] [id number] Medication Request (Sleep medicine for sleep study 07/11/2022) Social History Tobacco Use Types Packs/Day Years [...] encounter Miscellaneous Notes * Telephone Encounter - Rojas Walker PA-C - 06/28/2022 7:02 PM CDT I called Gale again. He uses the [facility] pharmacy. I will send a prescription for a 10 mg tab of zolpidem for the night of the study. He was encouraged to bring it with him to the sleep study and takes it after he gets the wires hooked up. Rojas Walker PA-C * Telephone Encounter - Rojas Walker PA-C - 06/21/2022 8:22 AM MARKETING ASSISTANT I sent a [employer] message asking which pharmacy he would prefer that I send the prescription to. He did not read it. I called this morning and left a message with the same question. Rojas Walker PA-C ETING ASSISTANT * Telephone Encounter - Marilee Min CMA - 06/16/2022 11:32 AM MARKETING ASSISTANT Patient is requesting that a prescription for a sleep medication be sent to his home for the night of the sleep study. Verified patient's home address. Marilee Min CMA ETING ASSISTANT documented in this encounter Plan of Treatment Upcoming Encounters Date Type Department Care Team (Late st Contact Info) Description 07/27/2023 10:00 AM CDT Virtual Visit [facility] [address] [phone] Nasir Cunningham MD [address] [facility] [address] [place] [address] documented as of this encounter Visit Diagnoses Not on filedocumented in this encounter Additional Health Concerns Assessment Noted Time PHQ-9 Depression Total Score: 19 023 2:47 PM MARKETING ASSISTANT documented as of this encounter Care Teams Bag Grader Relationship Specialty Start Date End Date Jennie Coleman APRN [employer] INSTALLER HELPER [address] [place] [address] PCP - General Geriatric Medicine 02/10/22 08/15/22 [facility]), [facility] [address] [place] [phone] 02/10/22 08/15/22 Saba Pan MD [address] [place] [phone] Physical Medicine and Rehabilitation 02/21/22 Samuel Rahman MD [address] [facility] [address] [place] [address] Assigned Heart and Vascular Provider 04/02/22 Saba Pan MD [address] [place] [address] [address] [place] [address] Assigned Neuroscience Provider 06/11/22 01/06/23 documented as of this encounter
== END 2023-05-23 20:54 | disposition home or self-care (01) ==
LOC: SLEEP 20:56
PROVIDERS: PCP Family Medicine; Visit Provider Nurse Practitioner
DX: G47.33 Obstructive sleep apnea (adult) (pediatric) (principal)
CPT/HCPCS: 95810

== ENCOUNTER 2024-05-03 10:18 | Outpatient (CLI) | payer MEDICAID, SELFPAY ==
--- NOTE | 2024-05-03 12:01 | P.ANES_ITS ---
Anesthesia Charges Start Date/Time Anesthesia Start Date: 05/03/24 Anesthesia Start Time: 11:34 Stop Date/Time Anesthesia Stop Date: 05/03/24 Anesthesia Stop Time: 11:59 Coding CPT Codes CPT Codes: ANES LWR INTST SCR COLSC - 69419 ([id number]) P3 - PATIENT W/SEVERE SYS DISEASE, QZ - METER/RELAY CRAFTSMAN SVC W/O ANIMAL CRUELTY INVESTIGATION SUPERVISOR BY
--- NOTE | 2024-05-03 12:01 | W.ANESCHARGE ---
Anesthesia Charges Start Date/Time Anesthesia Start Date: 05/03/24 Anesthesia Start Time: 11:34 Stop Date/Time Anesthesia Stop Date: 05/03/24 Anesthesia Stop Time: 11:59 Coding CPT Codes CPT Codes: ANES LWR INTST SCR COLSC - 12499 ([id number]) P3 - PATIENT W/SEVERE SYS DISEASE, QZ - MANAGER POLICY SVC W/O INSTRUMENTATION AND CONTROL TECHNICIAN BY
== END 2024-05-03 10:19 | disposition home or self-care (01) ==
LOC: OP CLINIC 10:20
PROVIDERS: PCP Student in an Organized Health Care Education/Training Program; Visit Provider Internal Medicine Gastroenterology
DX: Z12.11 Encounter for screening for malignant neoplasm of colon (principal)
CPT/HCPCS: 00812; 45378; J2704